=== PATIENT | male | born 1965 | race Caucasian/White ===

== ENCOUNTER 2017-03-22 06:08 | Inpatient (IN) | payer MEDICARE, OTHER ==
[~2017-03-22] VITALS: Ht 175.3 cm; Wt 102.1 kg
[2017-03-22] MEDS ORDERED: ALBU8.5H2 IH (06:34)
[2017-03-22] MEDS ORDERED: VANCOMYCIN IV 1,000 MG in IV DEXTROSE 5% 250 ML IV ONE (07:00)
[2017-03-22] MEDS ORDERED: PIPERACILLIN SODIUM/TAZOBACTAM 3.375 G in IV DEXTROSE 5% 50 ML IV ONE (07:00)
[2017-03-22] MEDS ORDERED: PIPERACILLIN/TAZOBACTAM/D5W 50 ML IV ONE (07:09)
[2017-03-22 07:18] LABS: BASOPHILS % (AUTO) 0.1 % (0.0-2.0); EOSINOPHILS # (AUTO) 0.2 K/uL (0.0-0.7); EOSINOPHILS % (AUTO) 1.6 % (0.0-7.0); HEMATOCRIT 27.6 % (40-50); HEMOGLOBIN 9.5 G/DL (14.0-18.0); LYMPHOCYTES # (AUTO) 0.9 K/UL (0.8-4.8); LYMPHOCYTES % (AUTO) 6.7 % (20.5-51.5); MEAN CORPUSCULAR HEMOGLOBIN 24.5 UUG (27.0-31.0); MEAN CORPUSCULAR HGB CONC 34 g/dL (32.0-37.0); MEAN CORPUSCULAR VOLUME 71.4 FL (82.0-92.0); MONOCYTES # (AUTO) 0.6 K/UL (0.1-1.30); MONOCYTES % (AUTO) 4.1 % (0.0-11.0); NEUTROPHILS # (AUTO) 12.4 K/UL (1.8-8.9); NEUTROPHILS % (AUTO) 87.5 % (38.5-71.5); PLATELET COUNT (AUTO) 399 K/UL (150-450); RED BLOOD CELL COUNT(AUTO) 3.87 MIL/UL (4.7-6.1); RED CELL DISTRIBUTION WIDTH 15.6 % (11.5-14.5); WHITE BLOOD COUNT (AUTO) 14.1 K/UL (4.0-11.2)
[2017-03-22 07:21] LABS: CALCIUM 8.8 mg/dL (8.5-10.1); CREATININE 0.8 mg/dL (0.6-1.3); POTASSIUM 3.6 mmol/L (3.5-5.1)
[2017-03-22 07:27] LABS: ALBUMIN 2.7 g/dL (3.4-5.0); BILIRUBIN,DIRECT 0.1 mg/dL (0.0-0.2); BILIRUBIN,TOTAL 0.2 mg/dL (0.2-1.0); TOTAL PROTEIN, SERUM 7.7 g/dL (6.4-8.2)
[2017-03-22 07:29] LABS: TROPONIN I < 0.017 ng/mL (0.00-0.056)
[2017-03-22] MEDS ORDERED: IV NORMAL SALINE 250 ML IV ONE (07:30)
[2017-03-22] MEDS ORDERED: IOHEXOL 300MG/ML 100 ML INFUS..BTL ONE (07:30)
[2017-03-22] MEDS ORDERED: VANCOMYCIN IV 200 ML ONE (07:32)
[2017-03-22 07:47] LABS: LACTIC ACID 1.2 mmol/L (0.4-2.0)
[2017-03-22] MEDS ORDERED: POLYMYXIN B SULFATE 500,000 UNITS, BACITRACIN 50,000 UNITS, NORMAL SALINE 20 ML MC ONE ×3 (08:45)
--- NOTE | 2017-03-22 08:46 | NUR ---
Pt to surg via osmani, hands off report given to Liss KAMINSKI.
[2017-03-22] MEDS ORDERED: BUPIVACAINE/EPI PF 0.25% 30 ML VIAL ONE (09:19)
[2017-03-22] MEDS ORDERED: LIDOCAINE 1%-EPI 1:100,000 20 ML VIAL ONE (09:19)
[2017-03-22] MEDS ORDERED: MORPHINE SULFATE 4 MG/1 ML DISP.SYRIN ONE ×2 (09:19→09:43)
[2017-03-22] MEDS ORDERED: ONDANSETRON 4 MG/2 ML VIAL IV PRN (10:00)
[2017-03-22] MEDS ORDERED: ACETAMINOPHEN 325 MG TABLET PO PRN (10:00)
[2017-03-22] MEDS ORDERED: MORPHINE SULFATE 2 MG/1 ML DISP.SYRIN IV PRN ×2 (10:00→10:30)
[2017-03-22] MEDS ORDERED: ALBUTEROL SULFATE 2.5 MG/3 ML NEBU NEB PRN (10:15)
[2017-03-22] MEDS ORDERED: POTASSIUM CHLORIDE 20 MEQ in IV D5 1/2 NS 1000 ML 1,000 ML IV PRN (10:30)
[2017-03-22] MEDS ORDERED: MORPHINE SULFATE 4 MG/1 ML DISP.SYRIN IV PRN (10:30)
[2017-03-22] MEDS ORDERED: MISCELLANEOUS MED PO PRN (10:30)
[2017-03-22] MEDS ORDERED: PIPERACILLIN/TAZOBACTAM/D5W 50 ML IV SCH (10:45)
[2017-03-22 11:15] VITALS: BP 113/66
[2017-03-22] MEDS ORDERED: MAGNESIUM HYDROXIDE 30 ML LIQUID UDC PO ONE (11:15)
[2017-03-22] MEDS ORDERED: MAGNESIUM HYDROXIDE 30 ML LIQUID UDC PO PRN (11:15)
--- NOTE | 2017-03-22 11:15 | NUR ---
Received from Recovery by bed S/P I&D abscess right and left thigh. Awake, alert, oriented x 4. IVF Infusing. Dr. Rosa and Amanda William OIL DISPATCHER at bedside, seen and examined patient. Routine admission care rendered. Lab confirmed by Dayana, received 2 specimen for right and left thigh wound CS GS.
--- NOTE | 2017-03-22 11:53 | NUR ---
Clinical Pharmacy Note: Vancomycin Dosing per Pharmacy Subjective: Vancomycin IV to start on this 51 yo male patient for cellulitis. Patient received vancomycin 1000mg IVPB x1 today at 0730 Objective: BUN 6/Scr 0.8 WBC 14.1 Temperature 100.9 wt 209 lb ht 5' 9'' Assessment/Plan: Will start vancomycin 1500mg IVPB q10h for predicted vancomycin trough level of 16 at steady state. First dose is due today at 1600. Plan to draw vancomycin trough level before 4th dose (not yet ordered). Will monitor renal function & adjust the dose if needed. Will follow daily.
[2017-03-22] MEDS: DOCUSATE SODIUM 100 MG CAPSULE PO SCH (12:04)
[2017-03-22] MEDS: IV NS 1000 ML 1,000 ML IV PRN (12:05)
[2017-03-22] MEDS: HYDROMORPHONE 1 MG/1 ML DISP.SYRIN IV PRN ×3 (12:06→21:33)
--- NOTE | 2017-03-22 13:51 | NUR ---
WOUND CARE CONSULT: PT SLEEPING SOUNDLY AT THIS TIME HE JUST RETURNED FROM SURGERY. PT HAS PACKING IN PLACE TO BOTH LEGS PER RN REPORT. WILL SEE PT PT CONDITION PERMITS.
[2017-03-22] MEDS ORDERED: PIPERACILLIN/TAZOBACTAM/D5W 3.375 G in PREMIXED 1 EACH IV SCH (14:00)
[2017-03-22] MEDS: PIPERACILLIN/TAZOBACTAM/D5W 50 ML IV SCH ×2 (14:17→18:46)
[2017-03-22 15:30] VITALS: BP 93/56
[2017-03-22] MEDS: VANCOMYCIN IV 1,500 MG in IV DEXTROSE 5% 500 ML IV SCH (16:30)
[2017-03-22] MEDS ORDERED: VANCOMYCIN IV 1,500 MG in IV DEXTROSE 5% 500 ML IV SCH (17:00)
--- NOTE | 2017-03-22 18:39 | NUR ---
Resting. Warm moist compress to both thighs. IVF infusing. Due antibiotics given
[2017-03-22 20:00] VITALS: BP 119/63
[2017-03-22] MEDS: LORAZEPAM 2 MG/1 ML VIAL IV PRN (23:26)
[2017-03-23] MEDS: PIPERACILLIN/TAZOBACTAM/D5W 50 ML IV SCH ×4 (00:05→20:26)
[2017-03-23] MEDS: VANCOMYCIN IV 1,500 MG in IV DEXTROSE 5% 500 ML IV SCH ×3 (01:21→21:44)
[2017-03-23] MEDS: HYDROMORPHONE 1 MG/1 ML DISP.SYRIN IV PRN ×2 (01:39→06:10)
[2017-03-23 04:00] VITALS: BP 127/71
--- NOTE | 2017-03-23 06:00 | NUR ---
Patient slept intermittently, c/o of pain medication not effective, notified MD, charge nurse notified, waiting for new orders. Kept clean, dry, reinforced dressings on bilateral thigh. Antibiotic IV administered, no s/s of adverse reaction noted. Call light within reach, will continue to monitor. Will endorse to the AM shift RN.
[2017-03-23] MEDS: PANTOPRAZOLE SODIUM 40 MG TABLET.DR PO SCH (06:09)
[2017-03-23] MEDS: IV NS 1000 ML 1,000 ML IV PRN (06:15)
[2017-03-23] MEDS: LORAZEPAM 2 MG/1 ML VIAL IV PRN ×3 (06:45→21:44)
--- NOTE | 2017-03-23 07:20 | NUR ---
RECEIVED PATIENT FROM E MERCHANT, SAFETY CHECK PERFORMED, BED IN LOW POSITION, SIDE RAILS UP X2
--- NOTE | 2017-03-23 07:44 | NUR ---
TRIPLE ATB GIVEN DURING I&D IN OR.
[2017-03-23] MEDS: DOCUSATE SODIUM 100 MG CAPSULE PO SCH (08:28)
[2017-03-23] MEDS: ENOXAPARIN SODIUM 40 MG/0.4 ML DISP.SYRIN SQ SCH (08:28)
[2017-03-23] MEDS ORDERED: DOCUSATE SODIUM 250 MG CAPSULE PO SCH (09:00)
--- NOTE | 2017-03-23 10:39 | NUR ---
Clinical Pharmacy Note: Vancomycin Dosing per Pharmacy Subjective: Vancomycin IV to continue on this 51 yo male patient for cellulitis. Objective: BUN 6/Scr 0.8 (03/22) WBC 14.1 (03/22) Temperature 98 wt 209 lb ht 5' 9'' Assessment/Plan: Will continue same dose of vancomycin 1500mg IVPB q10h for predicted vancomycin trough level of 16 mcg/ml at steady state. Third dose is due today at 1200. Plan to draw vancomycin trough level before 4th dose (ordered for 03/23 at 2130). pharmacy shall review the level in am & adjust the dose if needed. Will monitor renal function & adjust the dose if needed. Will follow daily.
[2017-03-23] MEDS: HYDROMORPHONE 2 MG/1 ML DISP.SYRIN IV PRN ×5 (10:58→23:12)
[2017-03-23 11:05] VITALS: BP 100/48
--- NOTE | 2017-03-23 11:46 | NUR ---
SPOKE WITH DR SILVEIRA AND NOTIFIED HIM OF WOUND mrsa ON LEFT THIGH AND PLACED PATIENT ON CONTACT PRECAUTIONS
[2017-03-23 14:44] LABS: BASOPHILS % (AUTO) 0.2 % (0.0-2.0); EOSINOPHILS # (AUTO) 0.5 K/uL (0.0-0.7); EOSINOPHILS % (AUTO) 4.4 % (0.0-7.0); LYMPHOCYTES # (AUTO) 0.8 K/UL (0.8-4.8); MEAN CORPUSCULAR HEMOGLOBIN 23.4 UUG (27.0-31.0); MEAN CORPUSCULAR HGB CONC 32 g/dL (32.0-37.0); MEAN CORPUSCULAR VOLUME 72.6 FL (82.0-92.0); MONOCYTES # (AUTO) 0.5 K/UL (0.1-1.30); MONOCYTES % (AUTO) 4.3 % (0.0-11.0); NEUTROPHILS # (AUTO) 9.1 K/UL (1.8-8.9); NEUTROPHILS % (AUTO) 84.1 % (38.5-71.5); PLATELET COUNT (AUTO) 405 K/UL (150-450); RED BLOOD CELL COUNT(AUTO) 3.85 MIL/UL (4.7-6.1); RED CELL DISTRIBUTION WIDTH 15.9 % (11.5-14.5); WHITE BLOOD COUNT (AUTO) 10.9 K/UL (4.0-11.2)
--- NOTE | 2017-03-23 15:15 | NUR ---
PATIENT COMPLAINING THAT PAIN CONTROL IS NOT ACHIEVED, NOTIFIED MD, ORDERS CHANGED TO 2MG Q3HR. PERFORMED WOUND CARE ON BOTH UPPER THIGHS.
[2017-03-23 15:18] LABS: ALBUMIN 2.3 g/dL (3.4-5.0); BILIRUBIN,TOTAL 0.2 mg/dL (0.2-1.0); CALCIUM 8.7 mg/dL (8.5-10.1); CREATININE 0.8 mg/dL (0.6-1.3); MAGNESIUM 2.4 mg/dL (1.8-2.4); PHOSPHOROUS 3.4 mg/dL (2.5-4.9); POTASSIUM 4.3 mmol/L (3.5-5.1); TOTAL PROTEIN, SERUM 7.1 g/dL (6.4-8.2)
[2017-03-23 15:20] VITALS: BP 102/54
[2017-03-23 15:27] LABS: THYROID STIMULATING HORMONE 2.826 mIU/mL (0.358-3.740)
--- NOTE | 2017-03-23 16:23 | NUR ---
CONTINUE WITH PAIN MANAGEMENT AND WOUND CARE
[2017-03-23 18:01] LABS: ANISOCYTOSIS 1+; BAND % (MANUAL) 4 % (0-10); EOSINOPHILS % (MANUAL) 5 % (0-8); HYPOCHROMASIA 1+; LYMPHOCYTES % (MANUAL) 7 % (20-40); MONOCYTES % (MANUAL) 5 % (2-10); NEUTROPHILS % (MANUAL) 79 % (42-75); PLATELET ESTIMATE ADEQUATE
--- NOTE | 2017-03-23 18:54 | NUR ---
GAVE REPORT TO CORPORATE CONTROLLER, SAFETY CHECK, BED IN LOW POSITION, WHEELS LOCKED, SIDE RAILS UP X2
[2017-03-23 19:00] VITALS: BP 124/73
--- NOTE | 2017-03-23 19:20 | NUR ---
ALERT ORIENTED, RESTING IN BED NO DISTRESS. CALL LIGHT WITHIN REACH.
--- NOTE | 2017-03-23 23:55 | NUR ---
PATIENT ALERT ORIENTED, ABLE TO MAKE NEEDS KNOWN, REMAIN ON CONTACT ISOLATION OF MRSA OF THIGH WOUNDS, CONT ON PAIN MANAGEMENT, CONT ON ABX FOR WOUNDS NO S/S OF DISTRESS.
[2017-03-24] MEDS: PIPERACILLIN/TAZOBACTAM/D5W 50 ML IV SCH ×4 (02:01→19:43)
[2017-03-24] MEDS: HYDROMORPHONE 2 MG/1 ML DISP.SYRIN IV PRN ×7 (02:15→21:56)
[2017-03-24] MEDS: LORAZEPAM 2 MG/1 ML VIAL IV PRN ×4 (04:01→23:41)
[2017-03-24 05:00] VITALS: BP 132/76
[2017-03-24] MEDS: IV NS 1000 ML 1,000 ML IV PRN (05:06)
--- NOTE | 2017-03-24 05:25 | NUR ---
PATIENT REFUSED LAB WORKS, YELLS AND SCREAMS AT THE STAFF, ASKED FOR DILAUDID DESPITE PATIENT HAD PAIN MEDS 1 1/2 HOUR ONLY, PATIENT CURSES AND MADE THREATENING REMARK THAT HE PULLED OUT IV, AND LEAVE THE HOSPITAL, PATIENT DOESN'T WANT TO BE WAKE UP WITH MEDICATIONS AND LABS WORKS. EXPLAINED THE IMPORTANCE OF COOPERATING WITH THE CARE BUT STILL RESIST. WILL CONTINUE TO OFFER MEDICATIONS AND LAB WORKS DRAW.
[2017-03-24] MEDS: PANTOPRAZOLE SODIUM 40 MG TABLET.DR PO SCH (06:01)
[2017-03-24] MEDS: ENOXAPARIN SODIUM 40 MG/0.4 ML DISP.SYRIN SQ SCH (08:29)
[2017-03-24] MEDS: DOCUSATE SODIUM 100 MG CAPSULE PO SCH (08:30)
[2017-03-24] MEDS: VANCOMYCIN IV 1,500 MG in IV DEXTROSE 5% 500 ML IV SCH ×2 (08:30→16:56)
[2017-03-24 11:44] VITALS: BP 138/62
[2017-03-24 15:00] LABS: BASOPHILS % (AUTO) 0.3 % (0.0-2.0); EOSINOPHILS # (AUTO) 0.5 K/uL (0.0-0.7); EOSINOPHILS % (AUTO) 6.1 % (0.0-7.0); HEMATOCRIT 29.7 % (40-50); HEMOGLOBIN 9.7 G/DL (14.0-18.0); LYMPHOCYTES # (AUTO) 0.8 K/UL (0.8-4.8); LYMPHOCYTES % (AUTO) 9.6 % (20.5-51.5); MEAN CORPUSCULAR HEMOGLOBIN 23.3 UUG (27.0-31.0); MEAN CORPUSCULAR HGB CONC 33 g/dL (32.0-37.0); MEAN CORPUSCULAR VOLUME 71.6 FL (82.0-92.0); MONOCYTES # (AUTO) 0.4 K/UL (0.1-1.30); MONOCYTES % (AUTO) 4.5 % (0.0-11.0); NEUTROPHILS # (AUTO) 6.6 K/UL (1.8-8.9); NEUTROPHILS % (AUTO) 79.5 % (38.5-71.5); PLATELET COUNT (AUTO) 479 K/UL (150-450); RED BLOOD CELL COUNT(AUTO) 4.14 MIL/UL (4.7-6.1); WHITE BLOOD COUNT (AUTO) 8.3 K/UL (4.0-11.2)
[2017-03-24 15:05] LABS: CALCIUM 9.2 mg/dL (8.5-10.1); CREATININE 0.7 mg/dL (0.6-1.3); MAGNESIUM 2.4 mg/dL (1.8-2.4); PHOSPHOROUS 4.8 mg/dL (2.5-4.9)
--- NOTE | 2017-03-24 15:26 | NUR ---
Clinical Pharmacy Note: Vancomycin Dosing per Pharmacy Subjective: Vancomycin IV to continue on this 51 yo male patient for cellulitis. Objective: BUN 6/Scr 0.8 (03/23) WBC 10.9 (03/23) Temperature 98 wt 209 lb ht 5' 9'' Trough: 14.3 (03/23 @2130) Assessment/Plan: Based on trough last night, rescheduled regimen to 1500mg q9hr for expected new trough of 16.3. Plan to draw vancomycin trough level before 4th dose (ordered for tomorrow 03/25 @1030). pharmacy shall review the level in am & adjust the dose if needed. Will monitor renal function & adjust the dose if needed. Will follow daily.
[2017-03-24 15:35] LABS: ANISOCYTOSIS 1+; HYPOCHROMASIA 1+
[2017-03-24 15:44] VITALS: BP 127/87
--- NOTE | 2017-03-24 19:15 | NUR ---
WOUND CARE IS DONE. NO S/S OF RESPIRATORY DISTRESS NOTED. NO PAIN REPORTED. IV INTACT/PATENT. ALL SAFETY NEEDS ARE MET.
--- NOTE | 2017-03-24 19:55 | NUR ---
PT IN BED RESTING, AWAKENS EASILY TO NAME. PT A/OX4, NO ACUTE DISTRESS NOTED. PT APPEARS CALM AND DOZING OFF, C/O SEVERE PAIN, PRN DILAUDID WAS RECENTLY GIVEN 1.5HR AGO, OFFERED TYLENOL, PRN TYLENOL GIVEN AT THIS TIME ORDERED. PT CALM AND COOPERATIVE AT THIS TIME. IV INTACT AND PATENT, ZOZYN STARTED ORDERED, WITH NO REACTIONS NOTED. CONTACT ISOLATION OBSERVED AND MAINTAINED. ALL NEEDS ATTENDED AT THIS TIME. WILL CONTINUE TO MONITOR.
[2017-03-24 20:00] VITALS: BP 117/63
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
[2017-03-24] MEDS ORDERED: LEVOFLOXACIN 750 MG TABLET PO SCH (20:45)
[2017-03-24] MEDS: LACTOBACILLUS RHAMNOSUS GG 1 EACH CAPSULE PO SCH (21:10)
--- NOTE | 2017-03-24 23:46 | NUR ---
PT C/O ANXIETY, REQUESTING MED. PRN ATIVAN 1MG GIVEN ORDERED, WILL CONTINUE TO MONITOR
[2017-03-25] MEDS: HYDROMORPHONE 2 MG/1 ML DISP.SYRIN IV PRN ×5 (01:08→12:53)
[2017-03-25] MEDS: VANCOMYCIN IV 1,500 MG in IV DEXTROSE 5% 500 ML IV SCH (01:09)
[2017-03-25 05:50] VITALS: BP 120/66
[2017-03-25] MEDS: PANTOPRAZOLE SODIUM 40 MG TABLET.DR PO SCH (06:09)
[2017-03-25] MEDS: LORAZEPAM 2 MG/1 ML VIAL IV PRN (06:09)
--- NOTE | 2017-03-25 06:54 | NUR ---
END OF SHIFT NOTE: PT IN BED RESTING, EASILY AWAKENS TO NAME. NO ACUTE DISTRESS NOTED PER SHIFT. VS STABLE. PAIN MANAGED WITH PRN DILAUDID REQUESTED BY PT Q3HR, GIVEN ORDERED WITH GOOD RELIEF. C/O ANXIETY MANAGED WITH PRN MED PRESCRIBED. REFUSED DRESSING CHANGE THIS AM. ALL NEEDS ATTENDED AND MET. CONTINUE CARE PLANNED.
[2017-03-25] MEDS: LACTOBACILLUS RHAMNOSUS GG 1 EACH CAPSULE PO SCH (08:03)
[2017-03-25] MEDS: DOCUSATE SODIUM 100 MG CAPSULE PO SCH (08:03)
[2017-03-25] MEDS: ENOXAPARIN SODIUM 40 MG/0.4 ML DISP.SYRIN SQ SCH (08:09)
[2017-03-25] MEDS: IV NS 1000 ML 1,000 ML IV PRN (08:10)
--- NOTE | 2017-03-25 08:30 | NUR ---
AWAKE ALERT COOPERATE WELL STATE PAIN MED HELP TO RELIEF PAIN EAT BREAKFAST WITH GOOD APPETITE ON FALL PRECAUTION CALL FONG IN REACH BROWN THIGH DSG D/I
[2017-03-25 11:10] VITALS: BP 125/85
--- NOTE | 2017-03-25 11:20 | NUR ---
Clinical Pharmacy Note: Vancomycin Dosing per Pharmacy Subjective: Vancomycin IV to continue on this 51 yo male patient for cellulitis. Objective: BUN 5/Scr 0.1 (03/24) WBC 8.3 (03/24) Temperature 97.8 wt 209 lb ht 5' 9'' Trough: 19.2 (today @1010) Assessment/Plan: Since vanco likely had not reached steady state by original first subtherapeutic trough taken on 03/23, based on today's trough, will reschedule regimen back to 1500mg q10hr, with new expected trough of 15.8. Plan to draw vancomycin trough level before 4th dose (ordered for tomorrow 03/26 @1730). pharmacy shall review the level & adjust the dose if needed. Will monitor renal function & adjust the dose if needed. Will follow daily.
[2017-03-25] MEDS ORDERED: VANCOMYCIN IV 1,500 MG in IV DEXTROSE 5% 500 ML IV SCH (12:00)
[2017-03-25 15:26] VITALS: BP 105/61
[2017-03-25] MEDS ORDERED: MULT-1045 PO (16:10)
[2017-03-25] MEDS ORDERED: Acetaminophen PO (16:10)
[2017-03-25] MEDS ORDERED: SULF1TAB48 PO (16:10)
[2017-03-25] MEDS ORDERED: LACT1CAP57 PO (16:10)
[2017-03-25] MEDS ORDERED: Docusate Sodium PO (16:10)
[2017-03-25] MEDS ORDERED: LEVO500T15 PO (16:10)
--- NOTE | 2017-03-25 16:12 | NUR ---
Spoke to the patient about being discharged to [facility] but he refused placement and would like to return back home. He is aware that he needs to follow-up with his PCP and see an ID MD. His RN, Brook, is aware of his discharge plan.
--- NOTE | 2017-03-25 17:41 | NUR ---
DISCHARGING PT TO HOME IN A STABLE CONDITION. V/S WNL. NO S/S OF ACUTE DISTRESS. DISCHARGE INSTRUCTION PROVIDED. WOUND TREATMENT INSTRUCTIONS PROVIDED, PT VOICED UNDERSTANDING OF INSTRUCTIONS. PT REFUSED TO SPEAK TO PHARMACIST ABOUT NEW MEDICATION PRESCRIPTION. IV REMOVED, PRESSURE APPLIED, NO BLEEDING OBSERVED. CLEAN DRESSING APPLIED. PT LEAVING VIA PRIVATE CAR, ACCOMPANIED BY FRIEND.
== END 2017-03-25 17:10 | disposition home or self-care (01) | DRG 872 ==
LOC: ER 06:21 → MED 08:45
PROVIDERS: ADMIT Internal Medicine; ATTEND Internal Medicine
PROC: 0H9HXZZ Drainage of Right Upper Leg Skin, External Approach (ICD-10-PCS; 2017-03-22)
PROC: 0H9JXZZ Drainage of Left Upper Leg Skin, External Approach (ICD-10-PCS; principal; 2017-03-22 09:15)
DX: A41.9 Sepsis, unspecified organism (principal); L02.415 Cutaneous abscess of right lower limb; E44.0 Moderate protein-calorie malnutrition; L02.416 Cutaneous abscess of left lower limb; F41.9 Anxiety disorder, unspecified; G89.29 Other chronic pain; J45.909 Unspecified asthma, uncomplicated; E66.9 Obesity, unspecified; Z68.33 Body mass index [BMI] 33.0-33.9, adult; R59.0 Localized enlarged lymph nodes; R73.9 Hyperglycemia, unspecified; F19.10 Other psychoactive substance abuse, uncomplicated; K59.09 Other constipation; F31.9 Bipolar disorder, unspecified; T40.605A Adverse effect of unspecified narcotics, initial encounter; Y92.009 Unspecified place in unspecified non-institutional (private) residence as the place of occurrence of the external cause; D63.8 Anemia in other chronic diseases classified elsewhere; F11.188 Opioid abuse with other opioid-induced disorder
CPT/HCPCS: 36415; 70030-TC; 71010; 83605; 83735; 84100; 84443; 85025; 85730; 87040; 87070; 87075; 87077; 93005; 97001; A4217; A4649; A4663; J1170; J1650; J2060; J2270; J2543; J3370; J3490; J7030; J7050; J7060; Q9967

== ENCOUNTER 2017-08-25 15:02 | Inpatient (IN) | payer MEDICARE, OTHER ==
[~2017-08-25] VITALS: Ht 175.3 cm; Wt 99.8 kg
[~2017-08-25 15:02] MED LIST: ALBU8.5H8 IH; Acetaminophen PO; Docusate Sodium PO; LACT1CAP57 PO; LEVO500T2 PO; MULT-1045 PO; SULF1TAB48 PO
[2017-08-25] MEDS ORDERED: LIDOCAINE HCL 1% 20 ML VIAL IJ ONE (15:15)
[2017-08-25] MEDS ORDERED: HYDROMORPHONE 1 MG/1 ML DISP.SYRIN IM ONE (15:15)
[2017-08-25] MEDS ORDERED: LIDOCAINE HCL 1% 20 ML VIAL ONE (15:26)
[2017-08-25] MEDS ORDERED: HYDROMORPHONE 2 MG/1 ML DISP.SYRIN ONE ×3 (15:27→22:12)
[2017-08-25 15:28] LABS: BASOPHILS # (AUTO) 0.8 K/uL (0.0-8.0); EOSINOPHILS # (AUTO) 0.5 K/uL (0.0-0.7); EOSINOPHILS % (AUTO) 2.6 % (0.0-7.0); HEMATOCRIT 30.8 % (40-50); HEMOGLOBIN 9.9 G/DL (14.0-18.0); LYMPHOCYTES # (AUTO) 1.1 K/UL (0.8-4.8); LYMPHOCYTES % (AUTO) 5.1 % (20.5-51.5); MEAN CORPUSCULAR HEMOGLOBIN 23.9 UUG (27.0-31.0); MEAN CORPUSCULAR HGB CONC 32 g/dL (32.0-37.0); MEAN CORPUSCULAR VOLUME 74.3 FL (82.0-92.0); MONOCYTES % (AUTO) 4.5 % (0.0-11.0); NEUTROPHILS # (AUTO) 17.7 K/UL (1.8-8.9); NEUTROPHILS % (AUTO) 83.8 % (38.5-71.5); PLATELET COUNT (AUTO) 539 K/UL (150-450); RED BLOOD CELL COUNT(AUTO) 4.15 MIL/UL (4.7-6.1); WHITE BLOOD COUNT (AUTO) 21.1 K/UL (4.0-11.2)
[2017-08-25] MEDS ORDERED: PIPERACILLIN SODIUM/TAZOBACTAM 3.375 G in IV DEXTROSE 5% 50 ML IV ONE (15:45)
[2017-08-25] MEDS ORDERED: VANCOMYCIN IV 200 ML IV ONE (15:45)
[2017-08-25 15:56] LABS: CARBON DIOXIDE 31 mmol/L (21-32); CHLORIDE 99 mmol/L (98-107); GLUCOSE 115 mg/dL (74-106); POTASSIUM 4.7 mmol/L (3.5-5.1); UREA NITROGEN, BLOOD 7 mg/dL (7-18)
[2017-08-25] MEDS ORDERED: HYDROMORPHONE 1 MG/1 ML DISP.SYRIN IV ONE (16:00)
[2017-08-25 16:02] LABS: ALANINE AMINOTRANSFERASE 10 U/L (16-63); ALKALINE PHOSPHATASE 112 U/L (50-136); ASPARTATE AMINOTRANSFERASE 13 U/L (15-37); BILIRUBIN,DIRECT < 0.1 mg/dL (0.0-0.2); BILIRUBIN,TOTAL 0.2 mg/dL (0.2-1.0); TOTAL PROTEIN, SERUM 7.7 g/dL (6.4-8.2)
[2017-08-25] MEDS ORDERED: VANCOMYCIN IV 200 ML ONE (16:11)
[2017-08-25] MEDS ORDERED: PIPERACILLIN/TAZOBACTAM/D5W 50 ML IV ONE (16:11)
--- NOTE | 2017-08-25 16:32 | NUR ---
DR HUTCHINSON I AND Wil'D, RT BUTTOCK ABSCESS AND TO RT FOREARM ABSCESSES. I THEN CLEANED SITES AND PLACED DRESSING. AT THIS TIME ZOSYN ADMINISTERED, VANCFO INFUSING.
[2017-08-25] MEDS ORDERED: NORMAL SALINE FLUSH 10 ML DISP.SYRIN ONE (16:33)
[2017-08-25] MEDS ORDERED: IOHEXOL 300MG/ML 100 ML INFUS..BTL ONE (16:33)
[2017-08-25] MEDS ORDERED: IV NORMAL SALINE 250 ML IV ONE (16:33)
[2017-08-25] MEDS ORDERED: ALPR2TAB2 PO (16:41)
[2017-08-25] MEDS ORDERED: OXYC30TA2 PO (16:41)
[2017-08-25] MEDS ORDERED: IV NORMAL SALINE 1000 ML BAG IV ONE (17:00)
--- NOTE | 2017-08-25 18:30 | NUR ---
ALL MD ORDERS COMPLETED EXCEPT THE 2700ML 0.9NS BOLUS, ENDORSED TO FAN KAMINSKI TO COMPLETE. ADMIT ORDER WRITTEN,BELONGINGS LIST DONE, ADMIT DATA SHEET COMPLETED. [facility]
--- NOTE | 2017-08-25 18:40 | NUR ---
RECEIVED FROM ER AWAKE ALERT AND ORIENTED, VS TAKEN, IVF NS INFUSING AND ENDORSED TO NEXT SHIFT
[2017-08-25 18:46] VITALS: BP 120/62
[2017-08-25 18:47] LABS: EOSINOPHILS % (MANUAL) 3 % (0-8); LYMPHOCYTES % (MANUAL) 7 % (20-40); MONOCYTES % (MANUAL) 3 % (2-10); NEUTROPHILS % (MANUAL) 87 % (42-75)
[2017-08-25 20:00] VITALS: BP 98/51
[2017-08-25] MEDS ORDERED: ACETAMINOPHEN 325 MG TABLET PO PRN (20:30)
[2017-08-25] MEDS ORDERED: ONDANSETRON 4 MG/2 ML VIAL IV PRN (20:30)
[2017-08-25] MEDS ORDERED: HYDROMORPHONE 1 MG/1 ML DISP.SYRIN IV PRN (20:30)
[2017-08-25] MEDS ORDERED: MAGNESIUM HYDROXIDE 30 ML LIQUID UDC PO PRN (20:30)
[2017-08-25] MEDS ORDERED: ALBUTEROL SULFATE 2.5 MG/3 ML NEBU NEB PRN (20:30)
[2017-08-25] MEDS: DOCUSATE SODIUM 100 MG CAPSULE PO SCH (21:01)
[2017-08-25] MEDS: HYDROCODONE/APAP 5-325MG TABLET PO PRN (21:02)
[2017-08-25] MEDS: PIPERACILLIN/TAZOBACTAM/D5W 50 ML IV SCH (21:07)
[2017-08-25] MEDS: IV NS 1000 ML 1,000 ML IV PRN (21:08)
[2017-08-25] MEDS: HYDROMORPHONE 2 MG/1 ML DISP.SYRIN IV PRN (22:55)
--- NOTE | 2017-08-25 23:00 | NUR ---
Admitted this 52 y/o male patient awake alert & oriented, no SOB denies chest pain. Dx.Cellulitis s/p I & D of left arm & right hip. Patient tolerated total IV bolus of 2,700ml NS. Right hip dressing soaking wet w/ serosanguinous drainage, same as his left arm wound dressing. Patient c/o pain on the site 10/10 pain level. Medicated w/ [place] p.o but not effective. Dialudid 1 mg IVP adm., patient verbalized relief post 15 mins. treatment. Wound dressing change initiated, applied gauze & abdominal pads. See wound photos in chart. On regular diet, late dinner meal tray provided. Patient tolerated. IVF NS at 80 ml started as ordered, Zosyn IVPB adm. Will continue to monitor.
--- NOTE | 2017-08-26 01:00 | NUR ---
Kept comfortable, patient urinated a lot via urinal.
[2017-08-26] MEDS: PIPERACILLIN/TAZOBACTAM/D5W 50 ML IV SCH ×4 (02:44→22:31)
[2017-08-26 04:00] VITALS: BP 101/53
[2017-08-26] MEDS: HYDROMORPHONE 2 MG/1 ML DISP.SYRIN IV PRN ×5 (04:43→22:16)
[2017-08-26] MEDS: PANTOPRAZOLE SODIUM 40 MG TABLET.DR PO SCH (05:36)
[2017-08-26] MEDS: HYDROCODONE/APAP 5-325MG TABLET PO PRN ×3 (06:19→11:32)
--- NOTE | 2017-08-26 06:39 | NUR ---
Awake & fairly rested. Medicated for pain PRN. Patient anxious about current condition, verbalizing fear of possibility of withdrawal symptoms, & stated he's "Heroin user". Patient requesting Methadone drugs. Will pass patient's concern to incoming shift. Will continue to monitor. No acute resp. distress. Vital signs WNL.
[2017-08-26 06:56] LABS: BILIRUBIN,TOTAL 0.2 mg/dL (0.2-1.0); CREATININE 0.9 mg/dL (0.6-1.3); MAGNESIUM 2.1 mg/dL (1.8-2.4); PHOSPHOROUS 4.2 mg/dL (2.5-4.9); POTASSIUM 4.4 mmol/L (3.5-5.1); TOTAL PROTEIN, SERUM 6.5 g/dL (6.4-8.2)
[2017-08-26 07:58] LABS: BASOPHILS % (AUTO) 0.1 % (0.0-2.0); EOSINOPHILS # (AUTO) 0.5 K/uL (0.0-0.7); EOSINOPHILS % (AUTO) 3.8 % (0.0-7.0); HEMOGLOBIN 8.6 G/DL (14.0-18.0); LYMPHOCYTES # (AUTO) 0.9 K/UL (0.8-4.8); LYMPHOCYTES % (AUTO) 6.9 % (20.5-51.5); MEAN CORPUSCULAR HEMOGLOBIN 24.8 UUG (27.0-31.0); MEAN CORPUSCULAR HGB CONC 33 g/dL (32.0-37.0); MEAN CORPUSCULAR VOLUME 75.1 FL (82.0-92.0); MONOCYTES # (AUTO) 0.6 K/UL (0.1-1.30); MONOCYTES % (AUTO) 4.7 % (0.0-11.0); NEUTROPHILS # (AUTO) 10.8 K/UL (1.8-8.9); NEUTROPHILS % (AUTO) 84.5 % (38.5-71.5)
[2017-08-26 07:59] LABS: WHITE BLOOD COUNT (AUTO) 12.8 K/UL (4.0-11.2)
[2017-08-26 08:00] LABS: PLATELET COUNT (AUTO) 384 K/UL (150-450); RED BLOOD CELL COUNT(AUTO) 3.46 MIL/UL (4.7-6.1)
[2017-08-26] MEDS: VANCOMYCIN IV 1,500 MG in IV DEXTROSE 5% 500 ML IV SCH ×2 (08:34→20:22)
[2017-08-26] MEDS ORDERED: Medication Not On Formulary EA (Multivitamin (Multi-Vitamin Daily) 1 EACH) PO SCH (09:00)
[2017-08-26] MEDS: MULTIVITAMINS,THERAPEUTIC TABLET PO SCH ×2 (09:00→16:29)
[2017-08-26 10:37] LABS: IRON, SERUM 14 ug/dL (50-175)
[2017-08-26 11:55] VITALS: BP 91/50
[2017-08-26 11:58] LABS: BAND % (MANUAL) 2 % (0-10); EOSINOPHILS % (MANUAL) 1 % (0-8); LYMPHOCYTES % (MANUAL) 7 % (20-40); MONOCYTES % (MANUAL) 3 % (2-10); MYELOCYTES % 1 % (0-0); NEUTROPHILS % (MANUAL) 86 % (42-75)
--- NOTE | 2017-08-26 12:14 | NUR ---
Clinical Pharmacy Note: Vancomycin Pharmacy to Dose Subjective: To start vancomycin in this 52 yo male for indication on cellulitis. Patient received vanco 1gm IVPB x1 in Ed on 08/25 at 1635. Objective: height : 69 '' weight: 220 lb BUN 5 Scr 0.9 Wbc 12.8 temp 98.6 Assessment/Plan Will start vancomycin 1500mg IVPB Q11hrs for expected trough of 15.9 at steady state. 1st dose was due today at 0800. Will check trough before 4th scheduled dose (not yet ordered). Will monitor renal function and adjust the dose if needed. Will continue to follow
--- NOTE | 2017-08-26 12:36 | NUR ---
WOUND CARE CONSULT: PT REFUSED SKIN ASSESSMENT. RECOMMEND SURGICAL CONSULT. DISCUSSED WITH NURSING STAFF. WILL SEE PT PT CONDITION PERMITS.
[2017-08-26] MEDS ORDERED: MAGNESIUM HYDROXIDE 30 ML LIQUID UDC PO ONE (13:30)
[2017-08-26] MEDS: LORAZEPAM 1 MG TABLET PO PRN (13:55)
[2017-08-26 15:30] VITALS: BP 112/65
[2017-08-26] MEDS: IV NS 1000 ML 1,000 ML IV PRN (16:28)
[2017-08-26 18:43] VITALS: BP 99/57
--- NOTE | 2017-08-26 19:45 | NUR ---
PATIENT ALERT ORIENTED, NO SOB NO CHEST PAIN NOTED, CONT ON PAIN MANAGEMENT OF CELLULITIS OF LEFT ARM/ELBOW, PATIENT HAS EPISODES OF YELLING AND SCREAMING AT STAFF, KEPT CLEAN AND COMFORTABLE. NO DISTRESS. DRESSING ON CELLULITIS INTACT, CONT TO MONITOR.
[2017-08-26 20:00] VITALS: BP 100/56
[2017-08-26] MEDS: DOCUSATE SODIUM 100 MG CAPSULE PO SCH (20:22)
[2017-08-26] MEDS: LACTOBACILLUS RHAMNOSUS GG 1 EACH CAPSULE PO SCH (20:22)
[2017-08-27] MEDS: LORAZEPAM 1 MG TABLET PO PRN (00:20)
[2017-08-27] MEDS: PIPERACILLIN/TAZOBACTAM/D5W 50 ML IV SCH ×4 (02:36→20:04)
[2017-08-27 04:00] VITALS: BP 104/55
[2017-08-27] MEDS: HYDROMORPHONE 2 MG/1 ML DISP.SYRIN IV PRN ×4 (04:09→21:44)
--- NOTE | 2017-08-27 05:42 | NUR ---
PATIENT IN BED ALERT ORIENTED, NO SOB NO CHEST PAIN NOTED, CONT ON PAIN MANAGEMENT, PATIENT REFUSED LAB DRAW, OFFERED TWICE BUT REFUSED, WILL TO OFFER AGAIN LATER. PATIENT SLEPT MOST OF THE NIGHT, CALL LIGHT WITHIN REACH.
[2017-08-27] MEDS: PANTOPRAZOLE SODIUM 40 MG TABLET.DR PO SCH (06:04)
[2017-08-27] MEDS: VANCOMYCIN IV 1,500 MG in IV DEXTROSE 5% 500 ML IV SCH ×2 (06:04→17:21)
[2017-08-27 09:01] LABS: BASOPHILS % (AUTO) 0.2 % (0.0-2.0); EOSINOPHILS # (AUTO) 0.6 K/uL (0.0-0.7); EOSINOPHILS % (AUTO) 5.9 % (0.0-7.0); HEMOGLOBIN 9.5 G/DL (14.0-18.0); LYMPHOCYTES # (AUTO) 0.9 K/UL (0.8-4.8); LYMPHOCYTES % (AUTO) 8.1 % (20.5-51.5); MEAN CORPUSCULAR HGB CONC 32 g/dL (32.0-37.0); MEAN CORPUSCULAR VOLUME 74.6 FL (82.0-92.0); MONOCYTES # (AUTO) 0.2 K/UL (0.1-1.30); MONOCYTES % (AUTO) 1.9 % (0.0-11.0); NEUTROPHILS % (AUTO) 83.9 % (38.5-71.5); PLATELET COUNT (AUTO) 457 K/UL (150-450); WHITE BLOOD COUNT (AUTO) 10.7 K/UL (4.0-11.2)
[2017-08-27 09:12] LABS: RED BLOOD CELL COUNT(AUTO) 3.97 MIL/UL (4.7-6.1)
[2017-08-27 09:13] LABS: HEMATOCRIT 29.6 % (40-50)
[2017-08-27] MEDS: LACTOBACILLUS RHAMNOSUS GG 1 EACH CAPSULE PO SCH ×2 (09:34→20:04)
[2017-08-27] MEDS: MULTIVITAMINS,THERAPEUTIC TABLET PO SCH (09:34)
[2017-08-27] MEDS: FERROUS SULFATE 325 MG TABEC PO SCH (09:34)
[2017-08-27 09:41] LABS: BILIRUBIN,TOTAL 0.2 mg/dL (0.2-1.0); MAGNESIUM 2.6 mg/dL (1.8-2.4); PHOSPHOROUS 4.4 mg/dL (2.5-4.9); POTASSIUM 4.5 mmol/L (3.5-5.1); TOTAL PROTEIN, SERUM 7.3 g/dL (6.4-8.2)
[2017-08-27 09:47] LABS: THYROID STIMULATING HORMONE 4.386 mIU/mL (0.358-3.740)
[2017-08-27 10:32] LABS: BAND % (MANUAL) 3 % (0-10); EOSINOPHILS % (MANUAL) 6 % (0-8); LYMPHOCYTES % (MANUAL) 9 % (20-40); METAMYELOCYTES % 1 % (0-1); MONOCYTES % (MANUAL) 3 % (2-10); NEUTROPHILS % (MANUAL) 78 % (42-75)
--- NOTE | 2017-08-27 10:32 | NUR ---
Patient refused chest x-ray at this time.
[2017-08-27] MEDS: IV NS 1000 ML 1,000 ML IV PRN (11:01)
[2017-08-27 11:32] VITALS: BP 111/57
--- NOTE | 2017-08-27 13:42 | NUR ---
Patient agrees to chest x-ray at this time.
[2017-08-27] MEDS: HYDROCODONE/APAP 5-325MG TABLET PO PRN (13:58)
--- NOTE | 2017-08-27 13:58 | NUR ---
Patient resistant to discharge plan at this time. Says only dilauded works for his back pain. Agreement to take norco at this time. Patient says he is to leave on Tuesday for Rehab. If he gets an order sooner he says he is going to go against medical advice and leave.
--- NOTE | 2017-08-27 14:30 | NUR ---
Dietitian recommendation for wound healing is add supplement vitamin C.
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
--- NOTE | 2017-08-27 14:49 | NUR ---
Clinical Pharmacy Note: Vancomycin Pharmacy to Dose Subjective: To continue vancomycin in this 52 yo male for indication on cellulitis. Patient received vanco 1gm IVPB x1 in Ed on 08/25 at 1635. Objective: height : 69 '' weight: 220 lb BUN 5 (08/26) Scr 0.9 (08/26) Wbc 12.8 (08/26) temp 98.6 trough: pending (today at 1630) Assessment/Plan Will continue vancomycin 1500mg IVPB Q11hrs for expected trough of 15.9 at steady state. Will check trough before 4th scheduled dose (due today at 1630). Will check level later today and adjust as needed. Will continue to follow Addendum: 08/27/17 at 1915 by ANDRIA POZO VANCOMYCIN LEVEL 16.8 CONTINUE SAME DOSE OF VANCOMYCIN
--- NOTE | 2017-08-27 15:30 | NUR ---
Patient arm dressing loose at this time. Refuses treatment of wounds.
[2017-08-27 15:59] VITALS: BP 135/67
--- NOTE | 2017-08-27 18:10 | NUR ---
Patient allowed proposal lead writer to change dressing at this time.
--- NOTE | 2017-08-27 19:15 | NUR ---
Handoff report to night nurse at this time.
--- NOTE | 2017-08-27 19:45 | NUR ---
PATIENT IN BED, AWAKE, NO SOB NO CHEST PAIN, RHYTHM SINUS RHYTHM, HOB ELEVATED, OXYGEN SAT WNL, 2LITER NC, GTF TOLERATE WELL NO N/V NOTED, NO DIARRHEA, NO RESIDUAL NOTED.GT HAS MINIMAL DRAINAGE NOTED, KEPT CLEAN AND DRY, TURN AND REPOSITION, PATIÑO CATH PATENT WITH YELLOW COLOR URINE IN MODERATE AMOUNT, KEPT COMFORTABLE.
[2017-08-27 20:00] VITALS: BP 141/76
[2017-08-27] MEDS: DOCUSATE SODIUM 100 MG CAPSULE PO SCH (20:05)
[2017-08-28] MEDS: IV NS 1000 ML 1,000 ML IV PRN (00:41)
[2017-08-28] MEDS: HYDROMORPHONE 2 MG/1 ML DISP.SYRIN IV PRN ×7 (01:14→23:07)
--- NOTE | 2017-08-28 01:15 | NUR ---
SEEN BY DR. ALMA KELLY, LOOK AT THE GT SITE, AND WOUND SITE, WITH NO NEW ORDER AT THIS TIME.
[2017-08-28] MEDS: PIPERACILLIN/TAZOBACTAM/D5W 50 ML IV SCH ×4 (01:53→20:41)
[2017-08-28] MEDS: VANCOMYCIN IV 1,500 MG in IV DEXTROSE 5% 500 ML IV SCH ×2 (04:04→14:52)
[2017-08-28 04:21] VITALS: BP 129/66
--- NOTE | 2017-08-28 04:49 | NUR ---
PATIENT SLEPT MOST OF THE NIGHT, HOB ELEVATED, NO SOB NO CHEST PAIN NOTED, OXYGEN SAT WNL, TURN AND REPOSITION EVERY TWO HOURS, PATIÑO CATH PATENT, TX CONT ON WOUND, GT WITH SMALL AMOUNT DRAINAGE NOTED, NO ODOR, NO EXUDATE NOTED, KEPT SITE CLEAN AND DRY, PICC LINE PATENT, KEPT CLEAN AND DRY, WHEN ASK IF SHE HAS PAIN PATIENT DENIES PAIN AT THIS TIME, CALL LIGHT WITHIN REACH
[2017-08-28] MEDS: PANTOPRAZOLE SODIUM 40 MG TABLET.DR PO SCH (06:08)
[2017-08-28] MEDS: LACTOBACILLUS RHAMNOSUS GG 1 EACH CAPSULE PO SCH ×2 (08:17→20:41)
[2017-08-28] MEDS: FERROUS SULFATE 325 MG TABEC PO SCH (08:17)
[2017-08-28] MEDS: MULTIVITAMINS,THERAPEUTIC TABLET PO SCH (08:17)
[2017-08-28 09:15] LABS: BASOPHILS # (AUTO) 0.1 K/uL (0.0-8.0); BASOPHILS % (AUTO) 0.8 % (0.0-2.0); EOSINOPHILS # (AUTO) 0.5 K/uL (0.0-0.7); HEMATOCRIT 32.2 % (40-50); LYMPHOCYTES # (AUTO) 1.1 K/UL (0.8-4.8); LYMPHOCYTES % (AUTO) 10.9 % (20.5-51.5); MEAN CORPUSCULAR HEMOGLOBIN 23.2 UUG (27.0-31.0); MEAN CORPUSCULAR HGB CONC 31 g/dL (32.0-37.0); MEAN CORPUSCULAR VOLUME 74.9 FL (82.0-92.0); MONOCYTES # (AUTO) 0.4 K/UL (0.1-1.30); MONOCYTES % (AUTO) 4.1 % (0.0-11.0); NEUTROPHILS # (AUTO) 8.2 K/UL (1.8-8.9); NEUTROPHILS % (AUTO) 79.2 % (38.5-71.5); PLATELET COUNT (AUTO) 518 K/UL (150-450); WHITE BLOOD COUNT (AUTO) 10.3 K/UL (4.0-11.2)
[2017-08-28 09:29] LABS: BILIRUBIN,TOTAL 0.1 mg/dL (0.2-1.0); CREATININE 0.9 mg/dL (0.6-1.3); MAGNESIUM 2.4 mg/dL (1.8-2.4); PHOSPHOROUS 4.5 mg/dL (2.5-4.9); POTASSIUM 4.3 mmol/L (3.5-5.1); TOTAL PROTEIN, SERUM 7.8 g/dL (6.4-8.2)
[2017-08-28 11:39] LABS: BAND % (MANUAL) 5 % (0-10); EOSINOPHILS % (MANUAL) 4 % (0-8); LYMPHOCYTES % (MANUAL) 10 % (20-40); METAMYELOCYTES % 1 % (0-1); MONOCYTES % (MANUAL) 4 % (2-10); MYELOCYTES % 2 % (0-0); NEUTROPHILS % (MANUAL) 74 % (42-75)
[2017-08-28 11:54] VITALS: BP 117/65
--- NOTE | 2017-08-28 12:00 | NUR ---
IV restarted on left hand 22 gauge has good back flow and flushed with ns . IV on right ac infiltrated applied ice.
--- NOTE | 2017-08-28 14:00 | NUR ---
Refused Dressing change on right hip. " Ill have it change later."
[2017-08-28 15:33] LABS: *BILIRUBIN,URIN NEGATIVE (NEGATIVE); *BLOOD, URINE NEGATIVE (NEGATIVE); *CLARITY,URINE CLEAR (CLEAR); *COLOR,URINE YELLOW (YELLOW); *KETONES,URINE NEGATIVE (NEGATIVE); *PROTEIN,URINE NEGATIVE (NEGATIVE); *UROBILINOGEN,URINE 0.2 E.U./dl (NORMAL); LEUKOCYTE ESTERASE ,URINE NEGATIVE (NEGATIVE); NITRITE, URINE NEGATIVE (NEGATIVE); UGLUCOSE NEGATIVE (NEGATIVE)
[2017-08-28 15:42] LABS: BACTERIA,URINE NONE SEEN /HPF (NONE SEEN); RBC,URINE 0-3 /HPF (0-3); SQUAMOUS EPITHELIAL CELL,UR FEW /HPF (NONE SEEN); WBC,URINE 0-3 /HPF (0-3)
--- NOTE | 2017-08-28 15:46 | NUR ---
Clinical Pharmacy Note: Vancomycin Pharmacy to Dose Subjective: To continue vancomycin in this 52 yo male for indication on cellulitis. Patient received vanco 1gm IVPB x1 in Ed on 08/25 at 1635. Objective: height : 69 '' weight: 220 lb BUN 7 Scr 0.9 Wbc 10.3 temp 98.3 trough: 16.8 (08/27 @ 1630) Assessment/Plan As trough was within range, will continue vancomycin 1500mg IVPB Q11hrs for now. As pt is obese, vanco may not be fully distributed, therefore will order another trough before tomorrow's 1300 dose (due at 1230). Will check trough and adjust if needed. Will continue to follow
[2017-08-28 16:05] VITALS: BP 107/72
--- NOTE | 2017-08-28 18:00 | NUR ---
Offered to have the dressing change again. "i want to rest right now." Pt is no acute distress. Call light is within reach.
--- NOTE | 2017-08-28 19:30 | NUR ---
RECEIVED PATIENT LAYING IN BED. COMPLAINING OF RIGHT HIP PAIN 07/24. PATIENT APPEARS TO BE AGITATED AND BOTHERED. A&O X 4. HE STATES HE WANTS HIS PAIN MEDICATIONS. IV ON THE LEFT WRIST #22 PATENT AND INTACT. SKIN ASSESSMENT DONE. NOTED MULTIPLE WOUNDS: RIGHT HIP WITH PACKING, LEFT ARM CLOSED UP WOUND. AND MULTIPLE OLD SCAR AND SCABS ON BILATERAL ARMS. SAFETY INITIATED. CALL LIGHT WITHIN REACH. WILL CONTINUE TO MONITOR.
[2017-08-28 20:10] VITALS: BP 116/76
[2017-08-28] MEDS: DOCUSATE SODIUM 100 MG CAPSULE PO SCH (20:45)
--- NOTE | 2017-08-28 21:30 | NUR ---
PREPARED FOR WOUND DRESSING CHANGE BUT PATIENT REFUSED. SAYING "I JUST WANT TO REST". "I DON'T WANT TO TALK ANYMORE BECAUSE I MIGHT POOP". WILL CONTINUE TO MONITOR.
[2017-08-29] MEDS: VANCOMYCIN IV 1,500 MG in IV DEXTROSE 5% 500 ML IV SCH ×3 (02:10→23:57)
[2017-08-29] MEDS: HYDROMORPHONE 2 MG/1 ML DISP.SYRIN IV PRN ×8 (02:10→23:58)
[2017-08-29] MEDS: IV NS 1000 ML 1,000 ML IV PRN ×2 (02:11→21:00)
[2017-08-29] MEDS: PIPERACILLIN/TAZOBACTAM/D5W 50 ML IV SCH ×4 (03:55→20:56)
--- NOTE | 2017-08-29 03:58 | NUR ---
WOUND CARE PROVIDED. TOLERATED WELL. IV TUBING CHANGED WELL. WILL CONTINUE TO MONITOR.
[2017-08-29] MEDS: PANTOPRAZOLE SODIUM 40 MG TABLET.DR PO SCH (06:05)
--- NOTE | 2017-08-29 06:19 | NUR ---
PATIENT SLEPT INTERMITTENTLY T/ SHIFT. NO ACUTE DISTRESS NOTED. PATIENT FREQUENTLY ASKS FOR PAIN MEDS FOR RIGHT HIP PAIN 08/23, MEDS GIVEN, STATED RELIEF. WOUND CARE PROVIDED ON THE RIGHT HIP. TOLERATED WELL. IVF INFUSING AT 80 CC/HR. SAFETY AND COMFORT MEASURES MAINTAINED T/O SHIFT. ALL MEDS GIVEN ORDERED. ALL NEEDS MET.
[2017-08-29 06:30] VITALS: BP 138/86
[2017-08-29 07:43] LABS: MONOCYTES # (AUTO) 0.4 K/UL (0.1-1.30); WHITE BLOOD COUNT (AUTO) 10.7 K/UL (4.0-11.2)
[2017-08-29 08:00] LABS: BILIRUBIN,TOTAL 0.2 mg/dL (0.2-1.0); CREATININE 0.9 mg/dL (0.6-1.3); MAGNESIUM 2.4 mg/dL (1.8-2.4); PHOSPHOROUS 4.3 mg/dL (2.5-4.9); POTASSIUM 4.2 mmol/L (3.5-5.1); TOTAL PROTEIN, SERUM 8.1 g/dL (6.4-8.2)
--- NOTE | 2017-08-29 08:00 | NUR ---
AWAKE ALERT COOPERATE WELL STATE PAIN MED HELP TO RELIEF PAIN NO SOB CONTINUE IVF AND CALL LIGHT WITHIN REACH
[2017-08-29 08:04] LABS: BASOPHILS % (AUTO) 0.2 % (0.0-2.0); EOSINOPHILS # (AUTO) 0.3 K/uL (0.0-0.7); EOSINOPHILS % (AUTO) 3.1 % (0.0-7.0); HEMATOCRIT 34.2 % (40-50); HEMOGLOBIN 10.9 G/DL (14.0-18.0); LYMPHOCYTES % (AUTO) 9.4 % (20.5-51.5); MEAN CORPUSCULAR HEMOGLOBIN 23.4 UUG (27.0-31.0); MEAN CORPUSCULAR HGB CONC 32 g/dL (32.0-37.0); MEAN CORPUSCULAR VOLUME 73.8 FL (82.0-92.0); MONOCYTES % (AUTO) 3.9 % (0.0-11.0); NEUTROPHILS % (AUTO) 83.4 % (38.5-71.5); PLATELET COUNT (AUTO) 560 K/UL (150-450); RED BLOOD CELL COUNT(AUTO) 4.64 MIL/UL (4.7-6.1)
[2017-08-29] MEDS: MULTIVITAMINS,THERAPEUTIC TABLET PO SCH (08:25)
[2017-08-29] MEDS: LACTOBACILLUS RHAMNOSUS GG 1 EACH CAPSULE PO SCH ×2 (08:25→20:47)
[2017-08-29] MEDS: FERROUS SULFATE 325 MG TABEC PO SCH (08:25)
[2017-08-29 09:23] LABS: BAND % (MANUAL) 4 % (0-10); EOSINOPHILS % (MANUAL) 3 % (0-8); LYMPHOCYTES % (MANUAL) 9 % (20-40); METAMYELOCYTES % 1 % (0-1); MONOCYTES % (MANUAL) 3 % (2-10); MYELOCYTES % 1 % (0-0); NEUTROPHILS % (MANUAL) 79 % (42-75)
[2017-08-29 11:38] VITALS: BP 126/69
--- NOTE | 2017-08-29 13:36 | NUR ---
linical Pharmacy Note: Vancomycin Pharmacy to Dose Subjective: To continue vancomycin in this 52 yo male for indication on cellulitis. Patient received vanco 1gm IVPB x1 in Ed on 08/25 at 1635. Objective: height : 69 '' weight: 220 lb BUN 7 Scr 0.9 Wbc 10.7 BANDS 4 temp 98.5 trough:14.8 (08/29 @ 1230) Assessment/Plan Continue vancomycin 1500mg ivpb q11h
[2017-08-29 15:36] VITALS: BP 113/70
--- NOTE | 2017-08-29 18:00 | NUR ---
HEMODYNAMIC STATUS STABLE PAIN UNDER CONTROL SAFETY MEASURE PROVIDED CALL FONG IN REACH
--- NOTE | 2017-08-29 19:46 | NUR ---
RECEIVED SHIFT REPORT FROM PREVIOUS SHIFT NURSE. INTRODUCTION TO PATIENT, PATIENT IN STABLE CONDITION. NO S/S OF DISTRESS. ENTERED PATIENT'S ROOM AND APPEARED TO BE FRUSTRATED AND VERBALIZED "I CANT GET ANY SLEEP AROUND HERE". ENSURED PATIENT THAT I WILL DO MY BEST TO GET HIM A GET SLEEP FOR THE NIGHT. BOARD CHANGED. BED IN LOCKED, LOW POSITION WITH SIDE RAILS UP X2. COMFORT AND SAFETY WILL BE PROVIDED THROUGHOUT SHIFT.
[2017-08-29 20:45] VITALS: BP 101/57
[2017-08-29] MEDS: DOCUSATE SODIUM 100 MG CAPSULE PO SCH (20:47)
[2017-08-30] MEDS: PIPERACILLIN/TAZOBACTAM/D5W 50 ML IV SCH ×3 (02:34→13:37)
[2017-08-30] MEDS: HYDROMORPHONE 2 MG/1 ML DISP.SYRIN IV PRN ×5 (02:35→14:43)
[2017-08-30 04:00] VITALS: BP 131/83
[2017-08-30] MEDS: PANTOPRAZOLE SODIUM 40 MG TABLET.DR PO SCH (05:31)
--- NOTE | 2017-08-30 06:17 | NUR ---
PATIENT SLEPT INTERMITTENTLY THROUGHOUT NIGHT. PATIENT CALLED FOR PAIN MEDICATION THROUGHOUT THE NIGHT WHEN EACH ADMINISTRATION WAS DUE. PATIENT WOULD SLEEP FOR THREE HOURS EVERY TIME PAIN MEDICATION WAS ADMINISITERED WHICH WAS Q3H. PATIENT IS IN STABLE CONDITION, WITH NO S/S OF DISTRESS. BED IN LOCKED/LOW POSITION WITH SIDE RAILS UP X2. CALL LIGHT WITHIN REACH. SAFETY AND COMFORT PROVIDED TO PATIENT.
[2017-08-30 07:32] LABS: CREATININE 0.8 mg/dL (0.6-1.3); MAGNESIUM 2.4 mg/dL (1.8-2.4); POTASSIUM 4.4 mmol/L (3.5-5.1)
[2017-08-30 07:41] LABS: BASOPHILS % (AUTO) 0.5 % (0.0-2.0); HEMOGLOBIN 10.7 g/dL (12.5-16.3); MONOCYTES # (AUTO) 0.5 K/uL (2.0-10.0); WHITE BLOOD COUNT (AUTO) 9.9 K/uL (3.6-10.2)
[2017-08-30 07:51] LABS: EOSINOPHILS # (AUTO) 0.4 K/uL (0.0-0.7); EOSINOPHILS % (AUTO) 3.6 % (0.0-7.0); HEMATOCRIT 32.8 % (36.7-47.1); LYMPHOCYTES % (AUTO) 10.4 % (20.5-51.5); MEAN CORPUSCULAR HEMOGLOBIN 24.1 uug (23.8-33.4); MEAN CORPUSCULAR HGB CONC 33 g/dL (32.5-36.3); MEAN CORPUSCULAR VOLUME 74.1 fL (73.0-96.2); MONOCYTES % (AUTO) 5.3 % (0.0-11.0); NEUTROPHILS # (AUTO) 7.9 K/uL (1.8-8.9); NEUTROPHILS % (AUTO) 80.2 % (38.5-71.5); PLATELET COUNT (AUTO) 468 K/uL (152-348); RED BLOOD CELL COUNT(AUTO) 4.42 MIL/uL (4.06-5.63)
[2017-08-30 08:30] LABS: BAND % (MANUAL) 2 % (0-10); EOSINOPHILS % (MANUAL) 4 % (0-8); LYMPHOCYTES % (MANUAL) 9 % (20-40); METAMYELOCYTES % 1 % (0-1); MONOCYTES % (MANUAL) 3 % (2-10); NEUTROPHILS % (MANUAL) 81 % (42-75)
--- NOTE | 2017-08-30 08:30 | NUR ---
AWAKE COOPERATE WELL NO PSOB STATE PAIN MED HELP TO RELIEF PAIN ON FALL PRECAUTION CALL FONG IN REACH
[2017-08-30] MEDS: MULTIVITAMINS,THERAPEUTIC TABLET PO SCH (08:39)
[2017-08-30] MEDS: LACTOBACILLUS RHAMNOSUS GG 1 EACH CAPSULE PO SCH (08:39)
[2017-08-30] MEDS: FERROUS SULFATE 325 MG TABEC PO SCH (08:39)
--- NOTE | 2017-08-30 11:00 | NUR ---
DR TODD ,T SEE PATIENT AND LAB RESULT NEW ORDER OK TO D/C HOME TODAY ,D/C INSTRUCTION GIVEN REGARDING F/U WITH OWN PMD CONTINUE WOUND CARE DSG CHANGE AND MEDICATION INSTRUCTION EDUCATION PK GAVE ,VERBALIZES UNDERSTAND AND SIGNS D/C SHEET
[2017-08-30] MEDS: VANCOMYCIN IV 1,500 MG in IV DEXTROSE 5% 500 ML IV SCH (11:01)
[2017-08-30] MEDS ORDERED: HYDR8TAB2 PO (11:50)
--- NOTE | 2017-08-30 11:52 | NUR ---
Clinical Pharmacy Note: Vancomycin Pharmacy to Dose Subjective: To continue vancomycin in this 52 yo male for indication on cellulitis. Objective: height : 69 '' weight: 220 lb BUN 8 Scr 0.8 Wbc 9.9 temp 98.3 WC + MRSA Assessment/Plan Will continue same dose of vancomycin 1500mg IVPB IVPB Q11hrs for today. Will monitor renal function & adjust the dose if needed. Will continue to follow
[2017-08-30 11:58] VITALS: BP 117/79
--- NOTE | 2017-08-30 14:30 | NUR ---
DR TRINIDAD SEE PATIENT AND NO NEW ORDER STATE WANT TO GIVE PRECRIPTION TO PATIENT BUT WANT TO KNOW WOUND CULTURE FINAL RESULT LAB WAS CALL AND RESULT PUT IN CHART AND CALL DR TRINIDAD AND MESSAGE LEFT REGARDING PRECRIPTION
--- NOTE | 2017-08-30 15:30 | NUR ---
PATIENT WANT TO GO HOME PHAMACY INSTRUCTION ON HOME MEDICINE VERBALIZES UNDERSTAND AND HL WAS DISCONTINUE REMIND TO COME TO ER OR GO TO WOUND CARE [facility] FOR F/U ON WOUND CARE ,VERBALIZES UNDERSTAND AND D/C SHEET SIGNS
--- NOTE | 2017-08-30 15:35 | NUR ---
D/C HOME WITH HIS BELONGING CONDITION STABLE DR TRINIDAD TEL # GAVE TO PATIENT REQUEST
== END 2017-08-30 15:35 | disposition home or self-care (01) | DRG 871 ==
LOC: ER 15:03 → MED 18:19
PROVIDERS: ADMIT Internal Medicine; ATTEND Internal Medicine
PROC: 0H9HXZZ Drainage of Right Upper Leg Skin, External Approach (ICD-10-PCS; principal; 2017-08-25)
PROC: 0H9EXZZ Drainage of Left Lower Arm Skin, External Approach (ICD-10-PCS; 2017-08-25)
PROC: 0H9CXZZ Drainage of Left Upper Arm Skin, External Approach (ICD-10-PCS; 2017-08-25)
DX: A41.9 Sepsis, unspecified organism (principal); E43 Unspecified severe protein-calorie malnutrition; E87.2 Acidosis; D69.6 Thrombocytopenia, unspecified; E83.41 Hypermagnesemia; E88.09 Other disorders of plasma-protein metabolism, not elsewhere classified; L03.115 Cellulitis of right lower limb; L02.414 Cutaneous abscess of left upper limb; L02.415 Cutaneous abscess of right lower limb; L03.114 Cellulitis of left upper limb; D50.9 Iron deficiency anemia, unspecified; E66.9 Obesity, unspecified; F17.290 Nicotine dependence, other tobacco product, uncomplicated; G89.29 Other chronic pain; J45.909 Unspecified asthma, uncomplicated; K42.9 Umbilical hernia without obstruction or gangrene; K57.30 Diverticulosis of large intestine without perforation or abscess without bleeding; K59.09 Other constipation; Z59.0 Homelessness; F11.10 Opioid abuse, uncomplicated; R73.9 Hyperglycemia, unspecified; R59.0 Localized enlarged lymph nodes; F19.10 Other psychoactive substance abuse, uncomplicated; F32.9 Major depressive disorder, single episode, unspecified; Z68.32 Body mass index [BMI] 32.0-32.9, adult; E02 Subclinical iodine-deficiency hypothyroidism; F41.9 Anxiety disorder, unspecified; B95.62 Methicillin resistant Staphylococcus aureus infection as the cause of diseases classified elsewhere
CPT/HCPCS: 36415; 70030-TC; 71010; 72193; 83550; 83605; 83735; 84100; 84443; 85025; 85730; 87040; 87070; 87077; 87086; 87806; A4217; A4663; J1170; J2543; J3370; J3490; J7030; J7050; J7060; Q9967

== ENCOUNTER 2017-11-28 17:21 | Inpatient (IN) | payer MEDICARE, OTHER ==
[~2017-11-28] VITALS: Ht 175.3 cm; Wt 95.3 kg
[~2017-11-28 17:21] MED LIST changes: +ALPR2TAB2 PO; +HYDR8TAB2 PO; -LACT1CAP57 PO; -LEVO500T2 PO; +OXYC30TA2 PO; -SULF1TAB48 PO
[2017-11-28] MEDS ORDERED: SULFAMETH/TRIMETH 800/160 MG TABLET PO ONE (17:45)
[2017-11-28] MEDS ORDERED: CEPHALEXIN MONOHYDRATE 500 MG CAPSULE PO ONE (17:45)
--- NOTE | 2017-11-28 17:51 | NUR ---
PT IS IN ROOM #1B. DR GARRIDO EVALUATED THE PT.
[2017-11-28] MEDS ORDERED: SULFAMETH/TRIMETH 800/160 MG TABLET ONE (18:02)
[2017-11-28] MEDS ORDERED: CEPHALEXIN MONOHYDRATE 500 MG CAPSULE ONE (18:03)
[2017-11-28 18:05] LABS: BASOPHILS % (AUTO) 0.3 % (0.0-2.0); EOSINOPHILS # (AUTO) 0.1 K/uL (0.0-0.7); EOSINOPHILS % (AUTO) 0.8 % (0.0-7.0); HEMATOCRIT 29.7 % (36.7-47.1); HEMOGLOBIN 9.6 g/dL (12.5-16.3); LYMPHOCYTES # (AUTO) 0.9 K/uL (20.0-40.0); LYMPHOCYTES % (AUTO) 6.3 % (20.5-51.5); MEAN CORPUSCULAR HEMOGLOBIN 23.4 uug (23.8-33.4); MEAN CORPUSCULAR HGB CONC 32 g/dL (32.5-36.3); MEAN CORPUSCULAR VOLUME 72.5 fL (73.0-96.2); MONOCYTES # (AUTO) 0.9 K/uL (2.0-10.0); MONOCYTES % (AUTO) 6.1 % (0.0-11.0); NEUTROPHILS # (AUTO) 12.8 K/uL (1.8-8.9); NEUTROPHILS % (AUTO) 86.5 % (38.5-71.5); PLATELET COUNT (AUTO) 375 K/uL (152-348); WHITE BLOOD COUNT (AUTO) 14.8 K/uL (3.6-10.2)
[2017-11-28 18:07] LABS: POTASSIUM 4.4 mmol/L (3.5-5.1)
[2017-11-28] MEDS ORDERED: VANCOMYCIN IV 1,000 MG in IV DEXTROSE 5% 250 ML IV ONE (18:15)
[2017-11-28] MEDS ORDERED: GENTAMICIN SULFATE 20 MG/2 ML VIAL IV ONE ×2 (18:30→20:29)
[2017-11-28] MEDS ORDERED: HYDROMORPHONE 1 MG/1 ML DISP.SYRIN IV ONE ×2 (18:45→20:00)
[2017-11-28] MEDS ORDERED: ONDANSETRON IV *ER 4 MG/2 ML VIAL IV ONE ×2 (18:45→20:00)
[2017-11-28] MEDS ORDERED: VANCOMYCIN IV 200 ML ONE (18:51)
[2017-11-28] MEDS ORDERED: IOHEXOL 300MG/ML 100 ML INFUS..BTL ONE (18:55)
[2017-11-28] MEDS ORDERED: NORMAL SALINE FLUSH 10 ML DISP.SYRIN ONE (18:55)
[2017-11-28] MEDS ORDERED: IV NORMAL SALINE 250 ML IV ONE (18:55)
[2017-11-28] MEDS ORDERED: HYDROMORPHONE 2 MG/1 ML DISP.SYRIN ONE ×2 (18:57→20:28)
[2017-11-28] MEDS ORDERED: ONDANSETRON 4 MG/2 ML VIAL ONE ×2 (18:57→20:29)
--- NOTE | 2017-11-28 19:20 | NUR ---
Received report from GORDY Morris. Assumed care of pt at this time. Pt in CT. Admissio pending
[2017-11-28] MEDS ORDERED: ONDANSETRON 4 MG/2 ML VIAL IV PRN (20:00)
[2017-11-28] MEDS ORDERED: ACETAMINOPHEN 325 MG TABLET PO PRN (20:00)
[2017-11-28] MEDS ORDERED: MAGNESIUM HYDROXIDE 30 ML LIQUID UDC PO PRN (20:00)
--- NOTE | 2017-11-28 20:54 | NUR ---
First ABT infusion completed, no adverse reactions noted. Second ABT infusion started. Pt sts pain has improved with previous pain medication. Sts pain is a 3/10 and is tolerable at this time. Pt resting in position of comfort for self, no complaints at this time. Report called to GORDY Kumar. Preparing to transfer pt to the floor.
[2017-11-28 21:00] VITALS: BP 107/66
[2017-11-28] MEDS ORDERED: DOCUSATE SODIUM 250 MG CAPSULE PO SCH (21:00)
[2017-11-28] MEDS: DOCUSATE SODIUM 100 MG CAPSULE PO SCH (21:00)
--- NOTE | 2017-11-28 21:05 | NUR ---
RECEIVED PT. FROM ER BY Arlette OLSON. PT IS AWAKE, ALERT AND ORIENTED. BELONGING LIST DONE. ADMISSION PROCESS AND CARE PLAN INITIATED. .NEW ADMISSION ORDERS RECEIVED FROM DR. SILVEIRA.SAFETY AND COMFORT PROVIDED. CALL LIGHT WITHIN REACH. WILL CONTINUE TO MONITOR.
[2017-11-28] MEDS: PIPERACILLIN/TAZOBACTAM/D5W 50 ML IV SCH (22:41)
[2017-11-28] MEDS: HYDROMORPHONE 1 MG/1 ML DISP.SYRIN IV PRN (22:59)
[2017-11-29] MEDS: PIPERACILLIN/TAZOBACTAM/D5W 50 ML IV SCH ×4 (03:33→22:35)
[2017-11-29] MEDS: HYDROMORPHONE 1 MG/1 ML DISP.SYRIN IV PRN (03:35)
[2017-11-29 04:00] VITALS: BP 108/61
[2017-11-29] MEDS: HYDROCODONE/APAP 10-325 MG TABLET PO PRN ×2 (06:09→20:13)
--- NOTE | 2017-11-29 06:57 | NUR ---
PT HAVE PAIN. ALL PAIN MEDICATION PRESCRIBED WAS GIVEN. PT IS ASKING FOR HIGHER DOSE OF THE MEDICATION. PT IS ASKING FOR DOCTOR. PT IS IRRITATED AND SHOUTING.
[2017-11-29] MEDS: PANTOPRAZOLE SODIUM 40 MG TABLET.DR PO SCH (07:08)
[2017-11-29] MEDS: VANCOMYCIN IV 1,500 MG in IV DEXTROSE 5% 500 ML IV SCH ×2 (08:02→19:55)
[2017-11-29 08:10] LABS: BILIRUBIN,TOTAL 0.4 mg/dL (0.2-1.0); CREATININE 0.9 mg/dL (0.6-1.3); EOSINOPHILS # (AUTO) 0.3 K/uL (0.0-0.7); LYMPHOCYTES # (AUTO) 0.8 K/uL (20.0-40.0); MAGNESIUM 2.1 mg/dL (1.8-2.4); MEAN CORPUSCULAR HEMOGLOBIN 23.7 uug (23.8-33.4); PHOSPHOROUS 3.7 mg/dL (2.5-4.9); POTASSIUM 4.3 mmol/L (3.5-5.1); RED BLOOD CELL COUNT(AUTO) 3.56 MIL/uL (4.06-5.63); TOTAL PROTEIN, SERUM 6.7 g/dL (6.4-8.2)
[2017-11-29 08:22] LABS: BASOPHILS % (AUTO) 0.2 % (0.0-2.0); EOSINOPHILS % (AUTO) 2.4 % (0.0-7.0); LYMPHOCYTES % (AUTO) 6.5 % (20.5-51.5); MEAN CORPUSCULAR HGB CONC 33 g/dL (32.5-36.3); MONOCYTES % (AUTO) 7.7 % (0.0-11.0); NEUTROPHILS # (AUTO) 10.3 K/uL (1.8-8.9); NEUTROPHILS % (AUTO) 83.2 % (38.5-71.5); PLATELET COUNT (AUTO) 292 K/uL (152-348); WHITE BLOOD COUNT (AUTO) 12.4 K/uL (3.6-10.2)
[2017-11-29 08:23] LABS: HEMOGLOBIN 8.4 g/dL (12.5-16.3)
[2017-11-29] MEDS ORDERED: HYDROMORPHONE 1 MG/1 ML DISP.SYRIN IV PRN (09:45)
[2017-11-29] MEDS: HYDROMORPHONE 2 MG/1 ML DISP.SYRIN IV PRN ×4 (09:47→21:35)
--- NOTE | 2017-11-29 11:19 | NUR ---
Clinical Pharmacy Note: Vancomycin Pharmacy to Dose Subjective: To start vancomycin in this 52 y/o male for indication of cellulitis (heroin addict) Patient received vanco 1gm IVPB x1 in ED on 11/28 at 1830 Objective: weight 210 lb height 5'9'' BUN 12 Scr 0.9 Wbc 12.4 temp 98.4 Assessment/Plan As per previous admission, will start vanco 1500mg IVPB q11 h for estimated trough of 15 mcg/ml at steady state. 1st dose is due today at 0800. Plan to check trough before 4th dose (level not yet ordered). Will monitor renal function & adjust the dose if needed. Will follow
[2017-11-29 11:27] LABS: EOSINOPHILS % (MANUAL) 3 % (0-8); LYMPHOCYTES % (MANUAL) 5 % (20-40); MONOCYTES % (MANUAL) 9 % (2-10); NEUTROPHILS % (MANUAL) 83 % (42-75)
[2017-11-29 15:58] VITALS: BP 95/46
[2017-11-29] MEDS: LACTOBACILLUS RHAMNOSUS GG 1 EACH CAPSULE PO SCH (20:12)
[2017-11-29] MEDS: DOCUSATE SODIUM 100 MG CAPSULE PO SCH (20:13)
[2017-11-29 20:54] VITALS: BP 94/54
[2017-11-30] MEDS: HYDROMORPHONE 2 MG/1 ML DISP.SYRIN IV PRN ×7 (01:14→21:12)
[2017-11-30 04:00] VITALS: BP_SYST 102; BP_SYST 120; BP_DIAS 61
[2017-11-30] MEDS: PIPERACILLIN/TAZOBACTAM/D5W 50 ML IV SCH ×4 (04:19→21:12)
--- NOTE | 2017-11-30 05:00 | NUR ---
PT IN ROOM WITH PAIN NOTED TO LEFT BUTTOCK AREA. ABLE TO SIGN CONSENT FOR UPCOMING PROCEDURE OF DRAINING RECENT ABCESS. NO ACUTE DISTRESS OVERNIGHT. ABLE TO TOLERATED ABX IV MEDICATIONS WITHOUT REACTION. BP 102/61.
[2017-11-30] MEDS: HYDROCODONE/APAP 10-325 MG TABLET PO PRN ×2 (05:01→20:29)
[2017-11-30] MEDS: VANCOMYCIN IV 1,500 MG in IV DEXTROSE 5% 500 ML IV SCH (05:07)
[2017-11-30] MEDS: PANTOPRAZOLE SODIUM 40 MG TABLET.DR PO SCH (06:17)
[2017-11-30] MEDS: LACTOBACILLUS RHAMNOSUS GG 1 EACH CAPSULE PO SCH ×2 (09:33→21:12)
--- NOTE | 2017-11-30 10:59 | NUR ---
Clinical Pharmacy Note: Vancomycin Pharmacy to Dose Subjective: To continue vancomycin in this 52 y/o male for indication of cellulitis (heroin addict) Patient received vanco 1gm IVPB x1 in ED on 11/28 at 1830 Objective: weight 210 lb height 5'9'' BUN 12 (11/29) Scr 0.9 (11/29) Wbc 12.4 (11/29) temp 98.4 trough: pending today at 1630 Assessment/Plan As per previous admission, will continue vanco 1500mg IVPB q11 h for estimated trough of 15 mcg/ml at steady state. 3rd dose today at 0600. Checking trough before 4th dose today at 1630. Will check level and adjust as appropriate. Will follow Addendum: 11/30/17 at 1837 by LIBRADO MILLER ADM trough for Vancomycin came back as 13.5 ; adjusted the dose to 2000 mg q12h starting @ 1800. The estimated peak is 40 and trough: 16 will order new trough prior to 4th dose on 12/02 ~ 0600
[2017-11-30 11:23] LABS: BASOPHILS % (AUTO) 0.2 % (0.0-2.0); EOSINOPHILS # (AUTO) 0.4 K/uL (0.0-0.7); EOSINOPHILS % (AUTO) 3.2 % (0.0-7.0); HEMATOCRIT 28.8 % (36.7-47.1); HEMOGLOBIN 9.4 g/dL (12.5-16.3); LYMPHOCYTES # (AUTO) 0.7 K/uL (20.0-40.0); LYMPHOCYTES % (AUTO) 5.3 % (20.5-51.5); MEAN CORPUSCULAR HEMOGLOBIN 23.7 uug (23.8-33.4); MEAN CORPUSCULAR HGB CONC 33 g/dL (32.5-36.3); MEAN CORPUSCULAR VOLUME 72.8 fL (73.0-96.2); MONOCYTES # (AUTO) 0.7 K/uL (2.0-10.0); MONOCYTES % (AUTO) 5.1 % (0.0-11.0); NEUTROPHILS # (AUTO) 11.1 K/uL (1.8-8.9); NEUTROPHILS % (AUTO) 86.2 % (38.5-71.5); PLATELET COUNT (AUTO) 370 K/uL (152-348); RED BLOOD CELL COUNT(AUTO) 3.95 MIL/uL (4.06-5.63); WHITE BLOOD COUNT (AUTO) 12.9 K/uL (3.6-10.2)
[2017-11-30 11:48] LABS: BAND % (MANUAL) 5 % (0-10); EOSINOPHILS % (MANUAL) 1 % (0-8); LYMPHOCYTES % (MANUAL) 7 % (20-40); MONOCYTES % (MANUAL) 5 % (2-10); NEUTROPHILS % (MANUAL) 82 % (42-75)
[2017-11-30 12:36] LABS: CREATININE 0.9 mg/dL (0.6-1.3); PHOSPHOROUS 3.2 mg/dL (2.5-4.9)
--- NOTE | 2017-11-30 14:50 | NUR ---
PT WAS TAKEN OFF THE UNIT FOR PROCEDURE. PT GIVEN DILAUDID FOR PAIN OF THE LEFT BUTTOCKS.
[2017-11-30] MEDS ORDERED: HYDROMORPHONE 1 MG/1 ML DISP.SYRIN IV STA (15:10)
--- NOTE | 2017-11-30 15:11 | NUR ---
GIVEN 1 MG OF DILAUDID ORDERED BY DR. SILVEIRA PATIENT IN CT FOR DRAINAGE OF ABSCESS . PATIENT SCREAMING LACHELLE HE WANTS ADDITIONAL PAIN MEDICATION.FINALLY PATIENT AGREED TO HAVE PROCEDURE DONE. 1550- OBTAINED 130 ML OF PUS DRAINAGE AND SENT TO LAB FOR CULTURES.
[2017-11-30] MEDS ORDERED: LIDOCAINE HCL 1% 20 ML VIAL ONE (15:17)
[2017-11-30] MEDS ORDERED: HYDROMORPHONE 1 MG/1 ML DISP.SYRIN ONE (15:28)
[2017-11-30] MEDS ORDERED: HYDROMORPHONE 1 MG/1 ML DISP.SYRIN IV ONE (16:15)
[2017-11-30 16:35] VITALS: BP 107/64
--- NOTE | 2017-11-30 18:24 | NUR ---
PT PAIN 10/10 GIVEN PAIN MEDICATION. MEDICATION EFFECTIVE. PT IS NOW RESTING IN BED WATCHING TV. NO SIGNS OF RESPIRATORY DISTRESS. BED AT LOWEST LOCKED POSITION. PT ENCOURAGED TO USE THE CALL LIGHT.
[2017-11-30] MEDS: VANCOMYCIN IV 2,000 MG in IV DEXTROSE 5% 500 ML IV SCH (18:37)
[2017-11-30 20:00] VITALS: BP 125/73
--- NOTE | 2017-11-30 20:00 | NUR ---
PT'S A/A/O X4 S/P CT & U/S GUIDED LEFT BUTTOCK ABSCESS DRAINAGE W/ X1 BANDAGE;PT S/P PAIN ON/OFF BUT PAIN'S CONTROLLED BY MEDICATION MD'S ORDER(SEE RECORD);WILL GET A CONSENT FOR I&D ORDER;PT STATED THAT DOCTOR ALREADY EXPLAINED TO HIM AND HE UNDERSTOOD ABOUT IT NOTED.
[2017-11-30] MEDS: DOCUSATE SODIUM 100 MG CAPSULE PO SCH (21:12)
--- NOTE | 2017-12-01 | NUR ---
KEPT NPO AFTER THIS TIME MD'S ORDER;HE VERBALIZED UNDERSTANDING AND ALREADY GOT A VERY GOOD DINNER AND SNACK PRIOR NPO TIME NOTED.KEPT COMFORT.CALL-LIGHT WITHIN REACH.
[2017-12-01] MEDS: HYDROMORPHONE 2 MG/1 ML DISP.SYRIN IV PRN ×6 (01:27→23:31)
[2017-12-01] MEDS: PIPERACILLIN/TAZOBACTAM/D5W 50 ML IV SCH ×4 (03:26→21:56)
[2017-12-01 04:00] VITALS: BP 106/62
[2017-12-01] MEDS: VANCOMYCIN IV 2,000 MG in IV DEXTROSE 5% 500 ML IV SCH ×2 (05:48→18:06)
--- NOTE | 2017-12-01 06:00 | NUR ---
PT SLEPT ON/OFF THROUGH OF THE NIGHT.KEPT NPO AFTER MIDNIGHT FOR SURGERY TODAY;GOT A SCHEDULE FROM FIRE CONTROL TECHNICIAN B WILL BE ~10:00 AM TODAY;PER PT STATED THAT HE WANTED TO TALK TO SURGEON ABOUT 8 AM;WILL ENDORSE TO INCOMING NURSE TO FOLLOW UP.PAIN'S CONTROLLED IN THE SHIFT(SEE RECORD).NO DISTRESS NOTED IN THE SHIFT.
--- NOTE | 2017-12-01 06:30 | NUR ---
SURGERY NURSE CALLED AND ASKED ABOUT PT INFORMATION;EXPLAINED TO HER THAT PER PT REQUESTED TO AM NURSE TO CALL PT REQUEST AT 8 AM.SO FAR,PER PT STATED THAT"DO NOT BOTHER,I WANT TO SLEEP".
--- NOTE | 2017-12-01 06:53 | NUR ---
HELD PROTONIX 40 MG PO AT THIS TIME DUE TO NPO FOR SURGERY IN AM TODAY;WILL ENDORSE NURSE TO FOLLOW UP NOTED.
[2017-12-01] MEDS: PANTOPRAZOLE SODIUM 40 MG TABLET.DR PO SCH (07:00)
--- NOTE | 2017-12-01 07:30 | NUR ---
RECEIVED REPORT FROM PMO LEAD NURSE, PATIENT IN BED AWAKE, REPORTS CONSTIPATION AND PAIN. BED IN LOW POSITION, SIDE RAILS UP X2.
[2017-12-01] MEDS: LACTOBACILLUS RHAMNOSUS GG 1 EACH CAPSULE PO SCH ×2 (08:45→21:52)
[2017-12-01] MEDS ORDERED: POLYMYXIN B SULFATE 500,000 UNITS, BACITRACIN 50,000 UNITS, NORMAL SALINE 20 ML MC ONE ×3 (09:45)
[2017-12-01] MEDS ORDERED: FENTANYL CITRATE 100 MCG/2 ML AMPUL ONE (10:26)
[2017-12-01] MEDS ORDERED: MIDAZOLAM HCL 2 MG/2 ML VIAL ONE (10:27)
[2017-12-01] MEDS ORDERED: SEVOFLURANE 250 ML BOTTLE ONE (10:33)
[2017-12-01] MEDS ORDERED: HYDROMORPHONE 1 MG/1 ML DISP.SYRIN ONE ×2 (11:20→11:45)
[2017-12-01 12:18] VITALS: BP 102/48
--- NOTE | 2017-12-01 13:41 | NUR ---
Clinical Pharmacy Note: Vancomycin Pharmacy to Dose Subjective: To continue vancomycin in this 52 y/o male for indication of cellulitis (heroin addict) Patient received vanco 1gm IVPB x1 in ED on 11/28 at 1830 Objective: weight 210 lb height 5'9'' BUN 12 (11/29) Scr 0.9 (11/29) Wbc 12.4 (11/29) temp 97.9 trough: tomorrow at 0530 Assessment/Plan Will continue new regimen of 2000 mg q12h starting @ 1800. The estimated peak is 40 and trough 16, 3rd dose today at 1800. Trough ordered before 4th scheduled dose at 0530 tomorrow am. RN endorsed to hold dose if trough >20. Will check level in am and adjust as needed. Will follow
[2017-12-01] MEDS ORDERED: CEFAZOLIN 1 G VIAL MC ONE (15:15)
[2017-12-01] MEDS ORDERED: PROPOFOL 200 MG/20 ML BOTTLE IV ONE (15:15)
[2017-12-01] MEDS ORDERED: LIDOCAINE HCL 2% 20 ML VIAL MC ONE (15:15)
[2017-12-01] MEDS ORDERED: IV NORMAL SALINE 1000 ML BAG IV ONE (15:15)
[2017-12-01 15:45] VITALS: BP 121/73
--- NOTE | 2017-12-01 19:06 | NUR ---
PATIENT HAS BEEN COOOPERATIVE WITH TREATMENT THROUGHOUT THE DAY. DRESSING ON BUTTOCK REINFOCED WITH ABD PAD IT WAS SOILED. LINNENS CHANGED AND PATIENT WAS MONITORED FOR PAIN SINCE RETURN FROM SURGERY. CURRENTLY IN BED NO EVIDENCE OF DISTRESS NOTED, BED IN LOW POSITION, SIDE RAILS UP X2.
--- NOTE | 2017-12-01 19:30 | NUR ---
PT AWAKE, ALERT , ORIENTED. PT IV INTACT AND PATENT. ITS ON RIGHT FOREARM. CALL LIGHT WITHIN REACH. WILL CONTINUE TO MONITOR.
[2017-12-01 20:00] VITALS: BP 117/54
[2017-12-01] MEDS: DOCUSATE SODIUM 100 MG CAPSULE PO SCH (21:53)
[2017-12-01] MEDS: HYDROCODONE/APAP 10-325 MG TABLET PO PRN (21:54)
--- NOTE | 2017-12-01 22:00 | NUR ---
PT PULLED HIS IV OUT. HE SAID ITS HURTING HIM. DR ORDERED TO PLACE MIDLINE FOR THE PT.
--- NOTE | 2017-12-01 22:15 | NUR ---
MIDLINE WAS PLACED ON PT RIGHT SUBCLAVIAN VEIN IN UPPERARM 20G. PT ALERT. SAFETY AND COMFORT PROVIDED. WILL CONTINUE TO MONITOR.
[2017-12-02] MEDS: HYDROMORPHONE 2 MG/1 ML DISP.SYRIN IV PRN ×6 (02:46→21:40)
[2017-12-02] MEDS: PIPERACILLIN/TAZOBACTAM/D5W 50 ML IV SCH ×4 (04:18→21:08)
[2017-12-02] MEDS: HYDROCODONE/APAP 10-325 MG TABLET PO PRN ×2 (04:25→19:50)
[2017-12-02 04:51] VITALS: BP 100/45
[2017-12-02] MEDS: VANCOMYCIN IV 2,000 MG in IV DEXTROSE 5% 500 ML IV SCH ×2 (05:40→18:06)
--- NOTE | 2017-12-02 05:49 | NUR ---
Patient slept intermittently t/o shift. No acute distres noted. Pain medications given. All meds given as ordered. Pt had 1 bowel movement. Safety and comfort provided.
[2017-12-02] MEDS: PANTOPRAZOLE SODIUM 40 MG TABLET.DR PO SCH (06:20)
[2017-12-02 06:47] LABS: BASOPHILS % (AUTO) 0.4 % (0.0-2.0); EOSINOPHILS # (AUTO) 0.5 K/uL (0.0-0.7); LYMPHOCYTES # (AUTO) 1.1 K/uL (20.0-40.0); MONOCYTES # (AUTO) 0.5 K/uL (2.0-10.0)
[2017-12-02 07:07] LABS: HEMATOCRIT 29.1 % (36.7-47.1); HEMOGLOBIN 9.4 g/dL (12.5-16.3); LYMPHOCYTES % (AUTO) 15.8 % (20.5-51.5); MEAN CORPUSCULAR HEMOGLOBIN 23.7 uug (23.8-33.4); MEAN CORPUSCULAR HGB CONC 32 g/dL (32.5-36.3); MEAN CORPUSCULAR VOLUME 73.2 fL (73.0-96.2); MONOCYTES % (AUTO) 7.1 % (0.0-11.0); NEUTROPHILS # (AUTO) 4.8 K/uL (1.8-8.9); NEUTROPHILS % (AUTO) 69.7 % (38.5-71.5); PLATELET COUNT (AUTO) 417 K/uL (152-348); RED BLOOD CELL COUNT(AUTO) 3.97 MIL/uL (4.06-5.63)
[2017-12-02 07:08] LABS: WHITE BLOOD COUNT (AUTO) 6.9 K/uL (3.6-10.2)
[2017-12-02 07:09] LABS: BILIRUBIN,TOTAL 0.1 mg/dL (0.2-1.0); CREATININE 0.9 mg/dL (0.6-1.3); MAGNESIUM 2.4 mg/dL (1.8-2.4); PHOSPHOROUS 3.7 mg/dL (2.5-4.9); POTASSIUM 3.9 mmol/L (3.5-5.1); TOTAL PROTEIN, SERUM 7.2 g/dL (6.4-8.2)
--- NOTE | 2017-12-02 07:30 | NUR ---
RECEIVED REPORT FROM NIGHT FROM DRUGLESS PHYSICIAN NURSE, PATIENT IN BED AWAKE, NO EVIDENCE OF DISTRESS NOTED, BED IN LOW POSITION, SIDE RAILS UP X2. NOTED ANTIBIOTIC FULL FROM 6AM SHIFT ADMINISTRATION. STARTED IV ANTIBIOTICS.
[2017-12-02] MEDS: LACTOBACILLUS RHAMNOSUS GG 1 EACH CAPSULE PO SCH ×2 (08:32→21:07)
[2017-12-02 10:07] LABS: BASOPHILS % (MANUAL) 1 % (0-2); EOSINOPHILS % (MANUAL) 7 % (0-8); LYMPHOCYTES % (MANUAL) 15 % (20-40); MONOCYTES % (MANUAL) 3 % (2-10); NEUTROPHILS % (MANUAL) 74 % (42-75)
[2017-12-02 11:38] VITALS: BP 111/71
[2017-12-02 15:38] VITALS: BP 106/70
--- NOTE | 2017-12-02 15:51 | NUR ---
Clinical Pharmacy Note: Vancomycin Pharmacy to Dose Subjective: To continue vancomycin in this 52 y/o male for indication of cellulitis (heroin addict) Objective: weight 210 lb height 5'9'' BUN 12 Scr 0.9 Wbc 6.9 temp 98.5 Vancomycin trough: 14.4 at 0603(extrapolated trough is 15.8) Assessment/Plan Since Vancomycin trough is within the range, will continue same dose of Vancomycin 2000mg IV every 12hrs. Will continue to follow daily. Addendum: 12/02/17 at 1559 by ROHITH POZO vancomycin trough was drawn today at 0603 but infusion started at 0540(possible blood draw while dose infusing). Another Vancomycin trough is ordered for tomorrow at 0530.
--- NOTE | 2017-12-02 18:46 | NUR ---
patient has been cooperative throughout shift today. Wound care performed as per Dr. conrad. Patient continues to have pain and requests Dilaudid every three hours. Currently in bed, no evidence of distress noted, bed in low position, side rails up x2.
--- NOTE | 2017-12-02 19:30 | NUR ---
NSG: pt received a/o x 4, c/o left buttock pain, 06/23, requesting norco. has a midline on right upper arm, currently receiving vanco iv. denies sob, n/v. will medicate and cont with treatment plan.
[2017-12-02 20:00] VITALS: BP 111/62
[2017-12-02] MEDS: DOCUSATE SODIUM 100 MG CAPSULE PO SCH (21:07)
[2017-12-03] MEDS: HYDROMORPHONE 2 MG/1 ML DISP.SYRIN IV PRN ×8 (00:29→22:54)
[2017-12-03] MEDS: PIPERACILLIN/TAZOBACTAM/D5W 50 ML IV SCH ×4 (03:38→22:54)
[2017-12-03 04:00] VITALS: BP 125/80
--- NOTE | 2017-12-03 05:21 | NUR ---
nsg: all needs attended. pt comfortable sleeping. midline on right upper arm patent. had 2 loose bm. cont to monitor.
--- NOTE | 2017-12-03 05:30 | NUR ---
NSG: PT REFUSED TO BE BOTHERED FOR LINE DRAW FOR VANCO TROUGH. WILL TRY AGAIN LATER.
[2017-12-03] MEDS: VANCOMYCIN IV 2,000 MG in IV DEXTROSE 5% 500 ML IV SCH (06:00)
[2017-12-03] MEDS: PANTOPRAZOLE SODIUM 40 MG TABLET.DR PO SCH (06:19)
--- NOTE | 2017-12-03 06:36 | NUR ---
nsg: pt finally agreed to have vanco trough drawn fr midline.
--- NOTE | 2017-12-03 07:30 | NUR ---
RECEIVED REPORT FROM NIGHTY SHIFT NURSE, CURRENTLY IN BED, ASLEEP, NO EVIDENCE OF DISTRESS NOTED AT THIS TIME.
[2017-12-03] MEDS: LACTOBACILLUS RHAMNOSUS GG 1 EACH CAPSULE PO SCH ×2 (09:32→21:43)
[2017-12-03] MEDS ORDERED: VANCOMYCIN IV 2,000 MG in IV DEXTROSE 5% 500 ML IV SCH (11:00)
[2017-12-03 11:57] VITALS: BP 122/58
--- NOTE | 2017-12-03 14:20 | NUR ---
Clinical Pharmacy Note: Vancomycin Pharmacy to Dose Subjective: To continue vancomycin in this 52 y/o male for indication of cellulitis (heroin addict) Objective: weight 210 lb height 5'9'' BUN 12 Scr 0.9 Wbc 6.9 temp 98.4 Vancomycin trough was 19, today at 0630 (1 hr delay due to patient refusal) instead of 0530 (ordered trough again since yesterday's trough was drawn 12/03-602 but infusion started 12/03-529, possible error on sample) Assessment/Plan Since Vancomycin trough is higher than expected, will change dose of Vancomycin 2000mg IV to every 15hrs(second dose tomorrow at 0030). Will draw trough by 4th dose(not ordered yet) for expected trough around 15
[2017-12-03 16:16] VITALS: BP 130/89
[2017-12-03 19:00] VITALS: BP 122/82
--- NOTE | 2017-12-03 19:27 | NUR ---
PATIENT HAS BEEN COOPERATIVE TODAY, WOUND CARE PERFORMED, NO EVIDENCE OF DISTRESS NOTED, BED IN LOW POSITION, SIDE RAILS UP X2.
--- NOTE | 2017-12-03 19:30 | NUR ---
Received patient laying comfortably in bed. No acute distress noted. C/o pain 9/10 on the left buttocks area. IVF infusing as TKO. Urinal at bedside. Midline on the right upper arm patent and intact. Dressing on the left buttocks is C/D/I. Safety initiated. Call light within reach. Room is kept clutter free. Bed is in low ans locked position. Will continue to monitor.
[2017-12-03] MEDS: DOCUSATE SODIUM 100 MG CAPSULE PO SCH (21:00)
[2017-12-03] MEDS: ALPRAZOLAM 0.25 MG TABLET PO PRN (22:22)
[2017-12-03] MEDS ORDERED: ALPRAZOLAM 0.5 MG TABLET ONE (22:36)
--- NOTE | 2017-12-03 23:30 | NUR ---
Transfer to ARU as med surg over flow in toom 122B via wheelchair. Report given to GORDY Tucker. No acute distress noted.
--- NOTE | 2017-12-03 23:30 | NUR ---
Patient transfered from 2nd floor Med-Surg via Wheelchair in stable condition. Report received from GORDY Kelley. Alert and verbally responsive. Able to make needs known. Denies any pain and discomfort at this time. No acute distress. No SOB. KATHLEEN Midline. Patent and intact. Dressing on Left buttocks intact. Kept clean and dry. All needs attended to promptly. Call light within reach. Will continue to monitor.
[2017-12-04] MEDS: HYDROCODONE/APAP 10-325 MG TABLET PO PRN ×2 (00:19→21:19)
[2017-12-04] MEDS: VANCOMYCIN IV 2,000 MG in IV DEXTROSE 5% 500 ML IV SCH ×3 (00:30→17:00)
--- NOTE | 2017-12-04 01:39 | NUR ---
Patient refused IV Vanco. Verbalized, "I don't want my IV antibiotics right now. Can you just wait till the morning?" Explained risks and benefits, but patient still strongly refused. Offered 3x. Will continue to monitor. Addendum: 12/04/17 at 0213 by WALT RICHARD RN Patient allowed and asked me to connect Vanco IV abx. Medication infusing at this time.
[2017-12-04] MEDS: HYDROMORPHONE 2 MG/1 ML DISP.SYRIN IV PRN ×7 (02:06→22:59)
[2017-12-04] MEDS: PIPERACILLIN/TAZOBACTAM/D5W 50 ML IV SCH ×4 (04:00→21:21)
--- NOTE | 2017-12-04 06:29 | NUR ---
Patient refused to take Protonix at this time and verbalizes "I'll take it when I wake up." Will endorse to day shift nurse.
--- NOTE | 2017-12-04 06:38 | NUR ---
Patient slept comfortably throughout the night. Pain medication given as needed. No acute distress. No SOB. KATHLEEN midline patent and intact. Kept clean and dry. All needs attended to prompty. Call light within reach. Will continue to monitor.
[2017-12-04 08:05] VITALS: BP 117/53
[2017-12-04] MEDS: PANTOPRAZOLE SODIUM 40 MG TABLET.DR PO SCH (08:42)
[2017-12-04] MEDS: LACTOBACILLUS RHAMNOSUS GG 1 EACH CAPSULE PO SCH ×2 (08:42→21:19)
--- NOTE | 2017-12-04 09:30 | NUR ---
Pain over buttocks rated as 7/10. PRN Dilaudid given
--- NOTE | 2017-12-04 10:01 | NUR ---
Dressing changed as ordered. With minimal serous sanguinous discharge. No signs of active bleeding
--- NOTE | 2017-12-04 12:59 | NUR ---
Resting in bed pain over left buttocks rated as 9/10. PRN Dilaudid given.
--- NOTE | 2017-12-04 13:40 | NUR ---
[facility], Informed Dr. Daniels, now new orders at this time, on Vancomycin and Zosyn. On contact isolation.
--- NOTE | 2017-12-04 16:11 | NUR ---
Clinical Pharmacy Note: Vancomycin Pharmacy to Dose Subjective: To continue vancomycin in this 52 y/o male for indication of cellulitis (heroin addict) Objective: weight 210 lb height 5'9'' BUN 12 (12/03) Scr 0.9 (12/03) Wbc 6.9 (12/03) temp 97.8 Assessment/Plan Will continue new regimen of Vancomycin 2000mg IV to every 15hrs(third dose today at 1530) for expected trough of 15. Will draw trough by 4th dose(due tomorrow at 0600). Rn endorsed to hold if Tr >20. Will check trough in am and readjust as needed. Will follow
--- NOTE | 2017-12-04 17:00 | NUR ---
Vancomycin unscheduled administration. Informed Pharmacy, and said former dose was documented on dose to be given 15:30 of 12/04/17.
[2017-12-04] MEDS: ALPRAZOLAM 0.25 MG TABLET PO PRN (17:23)
[2017-12-04 20:46] VITALS: BP 121/69
[2017-12-04] MEDS: DOCUSATE SODIUM 100 MG CAPSULE PO SCH (21:00)
--- NOTE | 2017-12-04 21:00 | NUR ---
Received pt on bed alert, awake and oriented x3. Able to make needs known. No acute distress noted. Complained of 8/10 pain on his buttocks, PRN norco was given. No SOB noted. Pt refused wound treatment at this time, states "they just changed my dressing, so you don't need to change it again". Will try to offer again in different time. Midline on KATHLEEN intact and patent, no signs of infection was noted. Vital signs stable. Contact precaution observed and maintained. Call light within reach. All needs met.
[2017-12-04] MEDS ORDERED: HYDROMORPHONE 2 MG/1 ML DISP.SYRIN ONE (23:02)
[2017-12-05] MEDS ORDERED: HYDROMORPHONE 2 MG/1 ML DISP.SYRIN ONE ×2 (03:06→06:18)
[2017-12-05] MEDS: HYDROMORPHONE 2 MG/1 ML DISP.SYRIN IV PRN ×5 (03:18→17:52)
--- NOTE | 2017-12-05 03:40 | NUR ---
Pt complained of 10/10 left buttock pain, PRN dilaudid IV given. However, 10mins after giving the medication pt called again and still complaining of pain. Pt stated that the medication is not working and is requesting to flush his line quickly because "the line is clogged" and is insisting repeatedly to flush the line. Upon assessment, midline noted to be patent and intact. Explained to the pt that the medication will take a couple of mins to work. Pt began to verbalize threats towards nursing staff stating "the doctor is my friend so watch out and be careful. I will remember everyone's face. So goodluck". Brands Editor made aware.
[2017-12-05] MEDS: HYDROCODONE/APAP 10-325 MG TABLET PO PRN ×2 (05:04→20:07)
--- NOTE | 2017-12-05 05:34 | NUR ---
Pt awake and alert. Complained of 8/10 pain, medicated with norco PRN. No acute distress noted. Breathing even and unlabored with normal respirations. Kept clean, dry and comfortable. Call light within reach. All needs attended.
[2017-12-05] MEDS: VANCOMYCIN IV 2,000 MG in IV DEXTROSE 5% 500 ML IV SCH ×2 (06:39→17:52)
[2017-12-05 06:54] LABS: BASOPHILS # (AUTO) 0.1 K/uL (0.0-8.0); BASOPHILS % (AUTO) 0.7 % (0.0-2.0); EOSINOPHILS # (AUTO) 0.5 K/uL (0.0-0.7); EOSINOPHILS % (AUTO) 4.8 % (0.0-7.0); HEMATOCRIT 32.3 % (36.7-47.1); HEMOGLOBIN 10.6 g/dL (12.5-16.3); LYMPHOCYTES # (AUTO) 1.4 K/uL (20.0-40.0); LYMPHOCYTES % (AUTO) 12.7 % (20.5-51.5); MEAN CORPUSCULAR HGB CONC 33 g/dL (32.5-36.3); MEAN CORPUSCULAR VOLUME 73.3 fL (73.0-96.2); MONOCYTES # (AUTO) 0.8 K/uL (2.0-10.0); MONOCYTES % (AUTO) 7.6 % (0.0-11.0); NEUTROPHILS # (AUTO) 8.1 K/uL (1.8-8.9); NEUTROPHILS % (AUTO) 74.2 % (38.5-71.5); PLATELET COUNT (AUTO) 433 K/uL (152-348); RED BLOOD CELL COUNT(AUTO) 4.41 MIL/uL (4.06-5.63); WHITE BLOOD COUNT (AUTO) 10.9 K/uL (3.6-10.2)
[2017-12-05 07:12] LABS: BILIRUBIN,TOTAL 0.2 mg/dL (0.2-1.0); CREATININE 0.8 mg/dL (0.6-1.3); MAGNESIUM 2.3 mg/dL (1.8-2.4); PHOSPHOROUS 4.1 mg/dL (2.5-4.9); POTASSIUM 4.1 mmol/L (3.5-5.1); TOTAL PROTEIN, SERUM 7.6 g/dL (6.4-8.2); VANCOMYCIN,TROUGH 11.5 ug/mL (12.0-20.0)
[2017-12-05] MEDS: PANTOPRAZOLE SODIUM 40 MG TABLET.DR PO SCH (07:18)
[2017-12-05 07:59] LABS: MONOCYTES % (MANUAL) 6 % (2-10)
[2017-12-05 08:00] VITALS: BP 113/68
[2017-12-05 08:00] LABS: EOSINOPHILS % (MANUAL) 5 % (0-8); LYMPHOCYTES % (MANUAL) 14 % (20-40); NEUTROPHILS % (MANUAL) 75 % (42-75)
--- NOTE | 2017-12-05 08:20 | NUR ---
RECEIVED PATIENT AWAKE, ALERT AND ORIENTED RESTING ON HIS BED ON A SEMI- MOCTEZUMA'S POSITION. NO SOB, NO DISTRESS NOTED. ALL NEEDS WERE ATTENDED AND ANTICIPATED. ENCOURAGED PATIENT TO USE CALL LIGHT WHENEVER ASSISTANCE IS NEEDED. WILL CONTINUE TO CLOSELY MONITOR.
[2017-12-05] MEDS: LACTOBACILLUS RHAMNOSUS GG 1 EACH CAPSULE PO SCH ×2 (09:26→20:07)
--- NOTE | 2017-12-05 09:40 | NUR ---
PATIENT NOTED AWAKE, ALERT AND ORIENTED WITH NO SOB DISTRESS. BUT COMPLAINED OF PAIN, DILAUDID ORDERED ADMINISTERED, TOLERATED WELL. WILL CONTINUE TO CLOSELY MONITOR. THE PATIENT. OFFERED TO PERFORM THE WOUND DRESSING BUT PER PATIENT TO COME BACK LATER. WILL FOLLOW UP. ALL NEEDS WERE ATTENDED AND ANTICIPATED. CALL LIGHT WITHIN REACH. ENCOURAGED PATIENT TO USE CALL LIGHT WHENEVER ASSISTANCE IS NEEDED.
--- NOTE | 2017-12-05 10:30 | NUR ---
PATIENT AWAKE, ALERT LYING ON BED WITH NO SOB DISTRESS OR LABORED BREATHING. ALL NEEDS WERE ATTENDED AND ANTICIPATED. OFFERED TO DO WOUND DRESSING TO THE PATIENT BUT PER PATIENT TO COME BACK AGAIN AT 1130. WILL FOLLOW- UP.
--- NOTE | 2017-12-05 11:35 | NUR ---
WOUND TREATMENT DONE ON PATIENT'S LEFT BUTTOCKS ORDERED. NO SIGNS AND SYMPTOMS OF INFECTION NOTED ON THE SITE. NO REDNESS OR ANY PUS NOTED. PATIENT TOLERATED WELL THE TREATMENT.
--- NOTE | 2017-12-05 15:55 | NUR ---
Clinical Pharmacy Note: Vancomycin Pharmacy to Dose Subjective: To continue vancomycin in this 52 y/o male for indication of cellulitis (heroin addict) Objective: weight 210 lb height 5'9'' BUN 13 Scr 0.8 Wbc 10.9 temp 97.7 Vancomycin trough 11.5 today at 0640 Assessment/Plan Since Vancomycin trough is subtherapeutic, will change dose to 2 gram IV every 12hrs(second dose today at 1800) and draw trough by 4th dose(not ordered yet) for expected trough around 15. Will monitor daily.
--- NOTE | 2017-12-05 16:28 | NUR ---
Patient alert and oriented noted resting on bed on a semi- seymour's position, easily aroused with no SOB, no distress noted. Breathing noted to be non-labored with clear breath sounds on both lung fournier. call light placed within his reach. Encouraged patient to use call light whenever assistance is needed. Will continue to closely monitor the patient.
--- NOTE | 2017-12-05 18:18 | NUR ---
Patient asleep, lying on bed on a semi- seymour's position. Easily aroused. Call light within his reach. All his needs were attended and anticipated. Encouraged patient to use call light whenever assistance is needed. No SOB, no distress or any display of pain or discomforts. Will continue to closely monitor the patient.
[2017-12-05] MEDS ORDERED: HYDROMORPHONE 1 MG/1 ML DISP.SYRIN IV PRN (18:30)
[2017-12-05] MEDS: DOCUSATE SODIUM 100 MG CAPSULE PO SCH ×2 (20:07→20:08)
[2017-12-05 21:05] VITALS: BP 125/84
--- NOTE | 2017-12-05 21:07 | NUR ---
NURSING CLINICAL NOTE: Pt was visited by . but pt requested to talk to the MD again regarding his pain medications . Trials to page with no response yet. will continue to follow up.
[2017-12-05] MEDS: CLOBETASOL PROPIONATE 0.05% CREAM 15 GM TUBE TOP SCH (21:17)
[2017-12-05] MEDS: ALPRAZOLAM 0.25 MG TABLET PO PRN (21:17)
--- NOTE | 2017-12-05 21:50 | NUR ---
NURSING CLINICAL NOTE: responded and made aware of patient's request. (See New Orders).
[2017-12-06] MEDS: HYDROMORPHONE 2 MG/1 ML DISP.SYRIN IV PRN ×3 (00:09→06:02)
[2017-12-06] MEDS ORDERED: HYDROMORPHONE 2 MG/1 ML DISP.SYRIN ONE ×3 (00:21→06:03)
[2017-12-06] MEDS: PANTOPRAZOLE SODIUM 40 MG TABLET.DR PO SCH (06:01)
[2017-12-06] MEDS: VANCOMYCIN IV 2,000 MG in IV DEXTROSE 5% 500 ML IV SCH ×2 (06:03→18:00)
[2017-12-06 08:15] VITALS: BP 120/60
[2017-12-06] MEDS: HYDROCODONE/APAP 10-325 MG TABLET PO PRN (09:03)
[2017-12-06] MEDS: LACTOBACILLUS RHAMNOSUS GG 1 EACH CAPSULE PO SCH (09:03)
[2017-12-06] MEDS: CLOBETASOL PROPIONATE 0.05% CREAM 15 GM TUBE TOP SCH (09:03)
--- NOTE | 2017-12-06 09:36 | NUR ---
pt seen on rounding. pt has midline infiltrated. notified md. md reordered to have midline inserted. pt complains of pain on left buttock. pt given norco for pain. pt instructed to apply cream on face. no signs of infection on wound dressing. will continue to monitor.
--- NOTE | 2017-12-06 13:12 | NUR ---
Clinical Pharmacy Note: Vancomycin Pharmacy to Dose Subjective: To continue vancomycin in this 52 y/o male for indication of cellulitis (heroin addict) Objective: weight 210 lb height 5'9'' BUN 13 (12/05) Scr 0.8 (12/05) Wbc 10.9 (12/05) temp 97.7 Vancomycin trough level: pending Assessment/Plan Will continue same dose of vanco 2 gram IVPB every 12hrs for now. Plan to draw vanco trough by 4th dose(ordered for today at 1730). Pharmacy shall review the level & adjust the dose if needed. Will monitor daily. Addendum: 12/06/17 at 6 by ROHITH POZO TROUGH 24.2. WILL HOLD DOSE AND CHECK RANDOM IN AM. WILL FOLLOW.
[2017-12-06] MEDS: HYDROMORPHONE 1 MG/1 ML DISP.SYRIN IV PRN ×3 (13:55→19:56)
--- NOTE | 2017-12-06 15:25 | NUR ---
inserted midline 20g left upper arm. pushed dilaudid for pain. will continue to monitor.
[2017-12-06] MEDS ORDERED: ACET325T53 PO (17:32)
[2017-12-06] MEDS ORDERED: LACT1CAP57 PO (17:32)
[2017-12-06] MEDS ORDERED: HYDR1DIS2 IV (17:32)
[2017-12-06] MEDS ORDERED: PANT40TA2 PO (17:32)
[2017-12-06] MEDS ORDERED: CLOB15CR10 TOP (17:32)
[2017-12-06] MEDS ORDERED: RXVAN XX (17:32)
[2017-12-06] MEDS ORDERED: MULT-1045 PO (17:32)
[2017-12-06] MEDS ORDERED: MAGN400O6 PO (17:32)
[2017-12-06] MEDS ORDERED: DOCU100C36 PO (17:32)
[2017-12-06] MEDS ORDERED: ALPR0.25 PO (17:32)
[2017-12-06] MEDS ORDERED: HYDR-548 PO (17:32)
[2017-12-06] MEDS ORDERED: HYDROMORPHONE HCL 2 MG TABLET PO PRN (17:45)
--- NOTE | 2017-12-06 18:58 | NUR ---
pt stable throughout the day. pt continues to beligerent and wants to go ama. pt discharge finalized. instructed pt to stay in room until picked up. lyndon at 24.1 withheld lyndon. will endorse to overnight stocker nurse.
--- NOTE | 2017-12-06 20:34 | NUR ---
PT DISCHARGED AT THIS TIME. REFUSED TO HAVE PICTURES RE-TAKEN TO LEFT SIDE BUTTOCKS. BELONGINGS AND DOCUMENTS GIVEN WITH EMT.
== END 2017-12-06 20:34 | DRG 871 ==
LOC: ER 17:22 → MED 20:46 → MEDSURG1 12-04 00:09
PROVIDERS: ADMIT Internal Medicine; ATTEND Internal Medicine
PROC: 0J993ZZ Drainage of Buttock Subcutaneous Tissue and Fascia, Percutaneous Approach (ICD-10-PCS; principal; 2017-11-28)
PROC: 0J993ZX Drainage of Buttock Subcutaneous Tissue and Fascia, Percutaneous Approach, Diagnostic (ICD-10-PCS; 2017-11-30)
PROC: 05H533Z Insertion of Infusion Device into Right Subclavian Vein, Percutaneous Approach (ICD-10-PCS; 2017-12-01)
DX: A41.9 Sepsis, unspecified organism (principal); E43 Unspecified severe protein-calorie malnutrition; F11.20 Opioid dependence, uncomplicated; E66.9 Obesity, unspecified; S31.823S Puncture wound without foreign body of left buttock, sequela; D63.8 Anemia in other chronic diseases classified elsewhere; L03.317 Cellulitis of buttock; J98.11 Atelectasis; L02.31 Cutaneous abscess of buttock; B95.62 Methicillin resistant Staphylococcus aureus infection as the cause of diseases classified elsewhere; X78.8XXS Intentional self-harm by other sharp object, sequela; Z68.31 Body mass index [BMI] 31.0-31.9, adult; Z59.0 Homelessness; K57.30 Diverticulosis of large intestine without perforation or abscess without bleeding; K42.9 Umbilical hernia without obstruction or gangrene; Z72.0 Tobacco use; L30.9 Dermatitis, unspecified; F31.9 Bipolar disorder, unspecified; G89.29 Other chronic pain; F19.10 Other psychoactive substance abuse, uncomplicated; Z87.81 Personal history of (healed) traumatic fracture; M54.10 Radiculopathy, site unspecified; J45.909 Unspecified asthma, uncomplicated; R74.8 Abnormal levels of other serum enzymes
CPT/HCPCS: 36415; 70030-TC; 71045; 72192; 72193; 75989; 76705; 83550; 83605; 83735; 84100; 85025; 85610; 85730; 86803; 87070; 87075; 93005; A4217; A4649; A4663; J0690; J1170; J1580; J2250; J2405; J2543; J3010; J3370; J3490; J7030; J7040; J7050; J7060; Q9967

== ENCOUNTER 2018-01-24 03:26 | Inpatient (IN) | payer MEDICARE, OTHER ==
[~2018-01-24] VITALS: Ht 175.3 cm; Wt 103.4 kg
[~2018-01-24 03:26] MED LIST changes: +ACET325T53 PO; +ALPR0.25 PO; -ALPR2TAB2 PO; -Acetaminophen PO; +CLOB15CR10 TOP; +DOCU100C36 PO; -Docusate Sodium PO; +HYDR-548 PO; +HYDR1DIS2 IV; +LACT1CAP57 PO; +MAGN400O6 PO; -OXYC30TA2 PO; +PANT40TA2 PO; +RXVAN XX
[2018-01-24] MEDS ORDERED: MORPHINE SULFATE 4 MG/1 ML DISP.SYRIN IV ONE ×2 (04:30→06:45)
[2018-01-24] MEDS ORDERED: VANCOMYCIN IV 1,000 MG in IV DEXTROSE 5% 250 ML IV ONE (04:30)
[2018-01-24] MEDS ORDERED: PIPERACILLIN SODIUM/TAZOBACTAM 3.375 G in IV DEXTROSE 5% 50 ML IV ONE (04:30)
[2018-01-24] MEDS ORDERED: ONDANSETRON 4 MG/2 ML VIAL IV ONE (04:30)
[2018-01-24] MEDS ORDERED: MORPHINE SULFATE 4 MG/1 ML DISP.SYRIN ONE ×2 (04:42→06:35)
[2018-01-24] MEDS ORDERED: VANCOMYCIN IV 200 ML ONE (04:42)
[2018-01-24] MEDS ORDERED: PIPERACILLIN/TAZOBACTAM/D5W 50 ML IV ONE (04:43)
[2018-01-24] MEDS ORDERED: ONDANSETRON 4 MG/2 ML VIAL ONE (04:43)
[2018-01-24 04:46] LABS: BASOPHILS % (AUTO) 0.2 % (0.0-2.0); EOSINOPHILS # (AUTO) 0.1 K/uL (0.0-0.7); EOSINOPHILS % (AUTO) 0.7 % (0.0-7.0); HEMATOCRIT 31.3 % (36.7-47.1); HEMOGLOBIN 10.3 g/dL (12.5-16.3); LYMPHOCYTES # (AUTO) 0.7 K/uL (20.0-40.0); LYMPHOCYTES % (AUTO) 4.4 % (20.5-51.5); MEAN CORPUSCULAR HEMOGLOBIN 24.8 uug (23.8-33.4); MEAN CORPUSCULAR HGB CONC 33 g/dL (32.5-36.3); MEAN CORPUSCULAR VOLUME 75.1 fL (73.0-96.2); MONOCYTES % (AUTO) 6.1 % (0.0-11.0); NEUTROPHILS % (AUTO) 88.6 % (38.5-71.5); PLATELET COUNT (AUTO) 424 K/uL (152-348); RED BLOOD CELL COUNT(AUTO) 4.17 MIL/uL (4.06-5.63)
[2018-01-24 05:05] LABS: BILIRUBIN,DIRECT 0.1 mg/dL (0.0-0.2); BILIRUBIN,TOTAL 0.4 mg/dL (0.2-1.0); CREATININE 1.6 mg/dL (0.6-1.3); POTASSIUM 3.7 mmol/L (3.5-5.1); TOTAL PROTEIN, SERUM 7.9 g/dL (6.4-8.2)
[2018-01-24] MEDS ORDERED: IV NORMAL SALINE 1000 ML BAG IV ONE ×2 (05:15→06:15)
[2018-01-24] MEDS ORDERED: LEVOFLOXACIN 500 MG/D5W 100ML PIGGYBACK IV ONE (06:00)
[2018-01-24] MEDS ORDERED: HYDR8TAB2 PO (06:17)
[2018-01-24 07:49] LABS: *BILIRUBIN,URIN NEGATIVE (NEGATIVE); *BLOOD, URINE NEGATIVE (NEGATIVE); *CLARITY,URINE CLEAR (CLEAR); *COLOR,URINE YELLOW (YELLOW); *KETONES,URINE NEGATIVE (NEGATIVE); *PROTEIN,URINE 1+ (NEGATIVE); *UROBILINOGEN,URINE 0.2 E.U./dl (NORMAL); LEUKOCYTE ESTERASE ,URINE NEGATIVE (NEGATIVE); NITRITE, URINE NEGATIVE (NEGATIVE); UGLUCOSE NEGATIVE (NEGATIVE)
[2018-01-24 08:03] LABS: BACTERIA,URINE FEW /HPF (NONE SEEN); SQUAMOUS EPITHELIAL CELL,UR FEW /HPF (NONE SEEN); WBC,URINE 0-3 /HPF (0-3)
[2018-01-24] MEDS ORDERED: LEVOFLOXACIN 500 MG/D5W 100 ML ONE (08:36)
[2018-01-24 09:23] VITALS: BP 114/70
[2018-01-24] MEDS: MORPHINE SULFATE 4 MG/1 ML DISP.SYRIN IV PRN ×4 (11:38→23:17)
[2018-01-24 11:41] VITALS: BP 118/74
[2018-01-24 15:10] VITALS: BP 138/64
[2018-01-24] MEDS ORDERED: MAGNESIUM HYDROXIDE 30 ML LIQUID UDC PO PRN (16:00)
[2018-01-24] MEDS ORDERED: ACETAMINOPHEN 325 MG TABLET PO PRN (16:00)
[2018-01-24] MEDS ORDERED: ALBUTEROL SULFATE 8 GM HFA.AER.AD IH PRN (16:00)
[2018-01-24] MEDS ORDERED: ALPRAZOLAM 0.25 MG TABLET PO PRN (16:00)
[2018-01-24] MEDS ORDERED: ONDANSETRON 4 MG/2 ML VIAL IV PRN (16:00)
[2018-01-24] MEDS ORDERED: ALBUTEROL SULFATE 2.5 MG/3 ML NEBU NEB PRN (16:45)
[2018-01-24] MEDS ORDERED: VANCOMYCIN IV 1 G in PREMIXED 0 EACH IV ONE (17:30)
[2018-01-24] MEDS: LACTOBACILLUS RHAMNOSUS GG 1 EACH CAPSULE PO SCH (20:19)
[2018-01-24] MEDS: DOCUSATE SODIUM 100 MG CAPSULE PO SCH (20:19)
[2018-01-24] MEDS: POTASSIUM CHLORIDE 20 MEQ in IV D5/ 0.9% NACL 1,000 ML IV PRN (20:19)
[2018-01-24 20:48] VITALS: BP 110/65
[2018-01-24] MEDS: PIPERACILLIN/TAZOBACTAM/D5W 3.375 G in PREMIXED 1 EACH IV SCH (21:41)
[2018-01-25] MEDS: MORPHINE SULFATE 4 MG/1 ML DISP.SYRIN IV PRN ×7 (03:35→22:02)
[2018-01-25 05:42] VITALS: BP 115/74
[2018-01-25] MEDS: PANTOPRAZOLE SODIUM 40 MG TABLET.DR PO SCH (06:00)
[2018-01-25] MEDS: PIPERACILLIN/TAZOBACTAM/D5W 3.375 G in PREMIXED 1 EACH IV SCH ×3 (06:00→22:01)
[2018-01-25] MEDS ORDERED: Medication Not On Formulary EA (Multivitamin (Multi-Vitamin Daily) 1 EACH) PO SCH (09:00)
[2018-01-25] MEDS: LACTOBACILLUS RHAMNOSUS GG 1 EACH CAPSULE PO SCH ×2 (09:35→20:01)
[2018-01-25] MEDS: MULTIVITAMINS,THERAPEUTIC TABLET PO SCH (09:35)
[2018-01-25 10:17] LABS: BASOPHILS % (AUTO) 0.3 % (0.0-2.0); EOSINOPHILS # (AUTO) 0.2 K/uL (0.0-0.7); EOSINOPHILS % (AUTO) 2.1 % (0.0-7.0); HEMATOCRIT 30.2 % (36.7-47.1); HEMOGLOBIN 9.8 g/dL (12.5-16.3); LYMPHOCYTES # (AUTO) 0.5 K/uL (20.0-40.0); LYMPHOCYTES % (AUTO) 4.6 % (20.5-51.5); MEAN CORPUSCULAR HEMOGLOBIN 24.9 uug (23.8-33.4); MEAN CORPUSCULAR HGB CONC 33 g/dL (32.5-36.3); MEAN CORPUSCULAR VOLUME 76.5 fL (73.0-96.2); MONOCYTES # (AUTO) 0.5 K/uL (2.0-10.0); MONOCYTES % (AUTO) 5.1 % (0.0-11.0); NEUTROPHILS # (AUTO) 9.1 K/uL (1.8-8.9); NEUTROPHILS % (AUTO) 87.9 % (38.5-71.5); PLATELET COUNT (AUTO) 382 K/uL (152-348); RED BLOOD CELL COUNT(AUTO) 3.94 MIL/uL (4.06-5.63)
[2018-01-25 10:20] LABS: BILIRUBIN,TOTAL 0.2 mg/dL (0.2-1.0); CREATININE 0.9 mg/dL (0.6-1.3); MAGNESIUM 2.3 mg/dL (1.8-2.4); PHOSPHOROUS 2.7 mg/dL (2.5-4.9); POTASSIUM 4.4 mmol/L (3.5-5.1); TOTAL PROTEIN, SERUM 6.9 g/dL (6.4-8.2); VANCOMYCIN,RANDOM 4.9 ug/mL (18.0-26.0)
[2018-01-25 10:31] LABS: WHITE BLOOD COUNT (AUTO) 10.4 K/uL (3.6-10.2)
[2018-01-25 11:33] VITALS: BP 125/64
[2018-01-25] MEDS: VANCOMYCIN IV 2,000 MG in IV NORMAL SALINE 500 ML IV SCH (12:26)
[2018-01-25 15:32] VITALS: BP 114/64
[2018-01-25] MEDS ORDERED: risperiDONE-M 0.5 MG TAB.RAPDIS PO PRN (18:00)
[2018-01-25] MEDS: DIVALPROEX 250 MG TABLET.DR PO SCH (20:01)
[2018-01-25] MEDS: DOCUSATE SODIUM 100 MG CAPSULE PO SCH (20:01)
[2018-01-25] MEDS: ALPRAZOLAM 0.5 MG TABLET PO PRN (20:01)
[2018-01-25] MEDS: MUPIROCIN 2% OINT 22 GM TUBE NS SCH (20:02)
[2018-01-25 20:39] VITALS: BP 92/56
[2018-01-25] MEDS ORDERED: DIVALPROEX 125 MG TABLET.DR PO SCH (21:00)
[2018-01-26] MEDS: VANCOMYCIN IV 2,000 MG in IV NORMAL SALINE 500 ML IV SCH ×2 (02:31→18:09)
[2018-01-26] MEDS: POTASSIUM CHLORIDE 20 MEQ in IV D5/ 0.9% NACL 1,000 ML IV PRN (02:31)
[2018-01-26] MEDS ORDERED: MORPHINE SULFATE 4 MG/1 ML DISP.SYRIN ONE (02:37)
[2018-01-26] MEDS: MORPHINE SULFATE 4 MG/1 ML DISP.SYRIN IV PRN ×7 (02:38→23:11)
[2018-01-26] MEDS: PIPERACILLIN/TAZOBACTAM/D5W 3.375 G in PREMIXED 1 EACH IV SCH ×3 (05:36→21:42)
[2018-01-26] MEDS: PANTOPRAZOLE SODIUM 40 MG TABLET.DR PO SCH (06:00)
[2018-01-26] MEDS: MUPIROCIN 2% OINT 22 GM TUBE NS SCH ×3 (09:00→21:42)
[2018-01-26] MEDS: LACTOBACILLUS RHAMNOSUS GG 1 EACH CAPSULE PO SCH ×2 (09:54→21:43)
[2018-01-26] MEDS: MULTIVITAMINS,THERAPEUTIC TABLET PO SCH (09:54)
[2018-01-26] MEDS: DIVALPROEX 250 MG TABLET.DR PO SCH ×2 (09:54→21:42)
[2018-01-26 13:05] VITALS: BP 116/63
[2018-01-26 16:30] VITALS: BP 98/51
[2018-01-26] MEDS: DOCUSATE SODIUM 100 MG CAPSULE PO SCH (21:42)
[2018-01-26 22:23] VITALS: BP 112/65
[2018-01-27] MEDS: ALPRAZOLAM 0.5 MG TABLET PO PRN ×2 (01:05→21:37)
[2018-01-27] MEDS: ACETAMINOPHEN 325 MG TABLET PO PRN ×2 (01:07→21:37)
[2018-01-27] MEDS: MORPHINE SULFATE 4 MG/1 ML DISP.SYRIN IV PRN ×6 (04:36→23:45)
[2018-01-27 04:53] VITALS: BP 99/52
[2018-01-27] MEDS: PANTOPRAZOLE SODIUM 40 MG TABLET.DR PO SCH (06:35)
[2018-01-27] MEDS: PIPERACILLIN/TAZOBACTAM/D5W 3.375 G in PREMIXED 1 EACH IV SCH ×4 (06:43→23:18)
[2018-01-27] MEDS: LACTOBACILLUS RHAMNOSUS GG 1 EACH CAPSULE PO SCH ×2 (09:00→20:34)
[2018-01-27] MEDS: MULTIVITAMINS,THERAPEUTIC TABLET PO SCH (09:00)
[2018-01-27] MEDS: DIVALPROEX 250 MG TABLET.DR PO SCH ×2 (09:00→20:34)
[2018-01-27 09:32] LABS: BASOPHILS % (AUTO) 0.3 % (0.0-2.0); EOSINOPHILS # (AUTO) 0.3 K/uL (0.0-0.7); EOSINOPHILS % (AUTO) 2.4 % (0.0-7.0); HEMOGLOBIN 10.3 g/dL (12.5-16.3); LYMPHOCYTES # (AUTO) 0.9 K/uL (20.0-40.0); LYMPHOCYTES % (AUTO) 7.2 % (20.5-51.5); MEAN CORPUSCULAR HEMOGLOBIN 24.3 uug (23.8-33.4); MEAN CORPUSCULAR HGB CONC 32 g/dL (32.5-36.3); MONOCYTES # (AUTO) 0.7 K/uL (2.0-10.0); MONOCYTES % (AUTO) 5.5 % (0.0-11.0); NEUTROPHILS % (AUTO) 84.6 % (38.5-71.5); PLATELET COUNT (AUTO) 453 K/uL (152-348); RED BLOOD CELL COUNT(AUTO) 4.22 MIL/uL (4.06-5.63); WHITE BLOOD COUNT (AUTO) 11.8 K/uL (3.6-10.2)
[2018-01-27 09:40] LABS: CREATININE 0.8 mg/dL (0.6-1.3); MAGNESIUM 2.2 mg/dL (1.8-2.4); PHOSPHOROUS 4.8 mg/dL (2.5-4.9)
[2018-01-27] MEDS: MUPIROCIN 2% OINT 22 GM TUBE NS SCH ×2 (09:50→20:38)
[2018-01-27] MEDS: POTASSIUM CHLORIDE 20 MEQ in IV D5/ 0.9% NACL 1,000 ML IV PRN (10:35)
[2018-01-27] MEDS: VANCOMYCIN IV 2,000 MG in IV NORMAL SALINE 500 ML IV SCH ×2 (10:41→23:46)
[2018-01-27] MEDS: DOCUSATE SODIUM 100 MG CAPSULE PO SCH (20:38)
[2018-01-27 21:23] VITALS: BP 111/54
[2018-01-28] MEDS: MORPHINE SULFATE 4 MG/1 ML DISP.SYRIN IV PRN ×6 (02:49→21:46)
[2018-01-28 04:00] VITALS: BP 120/66
[2018-01-28] MEDS: PIPERACILLIN/TAZOBACTAM/D5W 3.375 G in PREMIXED 1 EACH IV SCH ×3 (06:03→17:54)
[2018-01-28] MEDS: PANTOPRAZOLE SODIUM 40 MG TABLET.DR PO SCH (06:03)
[2018-01-28] MEDS: DIVALPROEX 250 MG TABLET.DR PO SCH ×2 (08:51→20:26)
[2018-01-28] MEDS: MULTIVITAMINS,THERAPEUTIC TABLET PO SCH (08:51)
[2018-01-28] MEDS: LACTOBACILLUS RHAMNOSUS GG 1 EACH CAPSULE PO SCH ×2 (08:51→20:26)
[2018-01-28] MEDS: MUPIROCIN 2% OINT 22 GM TUBE NS SCH ×2 (08:51→20:26)
[2018-01-28 12:11] VITALS: BP 97/60
[2018-01-28] MEDS: POTASSIUM CHLORIDE 20 MEQ in IV D5/ 0.9% NACL 1,000 ML IV PRN (12:42)
[2018-01-28] MEDS: VANCOMYCIN IV 2,000 MG in IV NORMAL SALINE 500 ML IV SCH (14:54)
[2018-01-28 16:15] VITALS: BP 110/57
[2018-01-28] MEDS: DOCUSATE SODIUM 100 MG CAPSULE PO SCH (20:26)
[2018-01-28] MEDS: ACETAMINOPHEN 325 MG TABLET PO PRN (20:31)
[2018-01-28] MEDS: ALPRAZOLAM 0.5 MG TABLET PO PRN (20:32)
[2018-01-28 21:00] VITALS: BP 109/49
[2018-01-28] MEDS: risperiDONE 0.5 MG TABLET PO SCH (21:46)
[2018-01-29] MEDS: PIPERACILLIN/TAZOBACTAM/D5W 3.375 G in PREMIXED 1 EACH IV SCH ×3 (00:32→11:48)
[2018-01-29] MEDS: MORPHINE SULFATE 4 MG/1 ML DISP.SYRIN IV PRN ×7 (00:33→21:27)
[2018-01-29 05:00] VITALS: BP 104/50
[2018-01-29] MEDS: POTASSIUM CHLORIDE 20 MEQ in IV D5/ 0.9% NACL 1,000 ML IV PRN (05:41)
[2018-01-29 06:13] LABS: BASOPHILS % (AUTO) 0.1 % (0.0-2.0); EOSINOPHILS # (AUTO) 0.4 K/uL (0.0-0.7); EOSINOPHILS % (AUTO) 2.2 % (0.0-7.0); HEMATOCRIT 29.5 % (36.7-47.1); HEMOGLOBIN 9.4 g/dL (12.5-16.3); LYMPHOCYTES % (AUTO) 6.2 % (20.5-51.5); MEAN CORPUSCULAR HEMOGLOBIN 24.2 uug (23.8-33.4); MEAN CORPUSCULAR HGB CONC 32 g/dL (32.5-36.3); MEAN CORPUSCULAR VOLUME 75.7 fL (73.0-96.2); MONOCYTES # (AUTO) 0.8 K/uL (2.0-10.0); MONOCYTES % (AUTO) 5.2 % (0.0-11.0); NEUTROPHILS # (AUTO) 13.8 K/uL (1.8-8.9); NEUTROPHILS % (AUTO) 86.3 % (38.5-71.5); PLATELET COUNT (AUTO) 452 K/uL (152-348)
[2018-01-29 06:31] LABS: CREATININE 0.9 mg/dL (0.6-1.3); MAGNESIUM 2.1 mg/dL (1.8-2.4); PHOSPHOROUS 4.4 mg/dL (2.5-4.9); POTASSIUM 4.3 mmol/L (3.5-5.1)
[2018-01-29] MEDS: VANCOMYCIN IV 2,000 MG in IV NORMAL SALINE 500 ML IV SCH ×2 (06:33→21:40)
[2018-01-29] MEDS: PANTOPRAZOLE SODIUM 40 MG TABLET.DR PO SCH (06:33)
[2018-01-29] MEDS: MULTIVITAMINS,THERAPEUTIC TABLET PO SCH (08:06)
[2018-01-29] MEDS: LACTOBACILLUS RHAMNOSUS GG 1 EACH CAPSULE PO SCH ×2 (08:06→21:00)
[2018-01-29] MEDS: DIVALPROEX 250 MG TABLET.DR PO SCH ×2 (08:06→21:21)
[2018-01-29] MEDS: MUPIROCIN 2% OINT 22 GM TUBE NS SCH ×2 (08:07→21:28)
[2018-01-29 11:19] VITALS: BP 103/62
[2018-01-29] MEDS: AMPICILLIN IV 1 G in IV NORMAL SALINE 50 ML IV SCH ×2 (14:10→22:57)
[2018-01-29 15:38] VITALS: BP 107/56
[2018-01-29 20:52] VITALS: BP 110/64
[2018-01-29] MEDS: DOCUSATE SODIUM 100 MG CAPSULE PO SCH (21:00)
[2018-01-29] MEDS: risperiDONE 0.5 MG TABLET PO SCH (21:20)
[2018-01-30] MEDS: MORPHINE SULFATE 4 MG/1 ML DISP.SYRIN IV PRN ×8 (00:37→21:34)
[2018-01-30] MEDS: ACETAMINOPHEN 325 MG TABLET PO PRN ×2 (01:05→23:06)
[2018-01-30] MEDS: ALPRAZOLAM 0.5 MG TABLET PO PRN ×2 (01:05→23:06)
[2018-01-30 05:29] VITALS: BP 115/52
[2018-01-30] MEDS: AMPICILLIN IV 1 G in IV NORMAL SALINE 50 ML IV SCH ×4 (05:40→21:40)
[2018-01-30] MEDS: PANTOPRAZOLE SODIUM 40 MG TABLET.DR PO SCH (06:50)
[2018-01-30] MEDS ORDERED: MORPHINE SULFATE 4 MG/1 ML DISP.SYRIN ONE (06:58)
[2018-01-30] MEDS ORDERED: MORPHINE SULFATE 2 MG/1 ML DISP.SYRIN ONE (06:58)
[2018-01-30 08:24] LABS: BASOPHILS % (AUTO) 0.2 % (0.0-2.0); EOSINOPHILS # (AUTO) 0.4 K/uL (0.0-0.7); EOSINOPHILS % (AUTO) 2.6 % (0.0-7.0); HEMOGLOBIN 10.1 g/dL (12.5-16.3); LYMPHOCYTES % (AUTO) 7.5 % (20.5-51.5); MEAN CORPUSCULAR HGB CONC 32 g/dL (32.5-36.3); MEAN CORPUSCULAR VOLUME 76.2 fL (73.0-96.2); MONOCYTES # (AUTO) 0.9 K/uL (2.0-10.0); MONOCYTES % (AUTO) 6.7 % (0.0-11.0); NEUTROPHILS # (AUTO) 11.4 K/uL (1.8-8.9); PLATELET COUNT (AUTO) 472 K/uL (152-348); RED BLOOD CELL COUNT(AUTO) 4.19 MIL/uL (4.06-5.63); WHITE BLOOD COUNT (AUTO) 13.7 K/uL (3.6-10.2)
[2018-01-30] MEDS: LACTOBACILLUS RHAMNOSUS GG 1 EACH CAPSULE PO SCH ×2 (09:00→21:35)
[2018-01-30] MEDS: MULTIVITAMINS,THERAPEUTIC TABLET PO SCH (09:00)
[2018-01-30] MEDS: DIVALPROEX 250 MG TABLET.DR PO SCH (09:03)
[2018-01-30] MEDS: MUPIROCIN 2% OINT 22 GM TUBE NS SCH ×2 (09:06→21:00)
[2018-01-30 11:57] VITALS: BP 99/53
[2018-01-30] MEDS: DIVALPROEX 125 MG TABLET.DR PO SCH ×3 (12:26→21:35)
[2018-01-30] MEDS: VANCOMYCIN IV 2,000 MG in IV NORMAL SALINE 500 ML IV SCH ×2 (12:26→12:53)
[2018-01-30] MEDS ORDERED: POLYMYXIN B SULFATE 500,000 UNITS, BACITRACIN 50,000 UNITS, NORMAL SALINE 20 ML MC ONE ×3 (12:45)
[2018-01-30] MEDS ORDERED: BUPIVACAINE 0.25% 30 ML VIAL ONE (13:00)
[2018-01-30] MEDS ORDERED: LIDOCAINE HCL 1% 20 ML VIAL ONE (13:00)
[2018-01-30] MEDS ORDERED: FENTANYL CITRATE 100 MCG/2 ML AMPUL ONE (14:17)
[2018-01-30] MEDS ORDERED: PROPOFOL 200 MG/20 ML BOTTLE IV ONE (16:10)
[2018-01-30 20:29] VITALS: BP 112/67
[2018-01-30] MEDS: DOCUSATE SODIUM 100 MG CAPSULE PO SCH (21:00)
[2018-01-30] MEDS: risperiDONE 0.5 MG TABLET PO SCH (21:35)
[2018-01-30] MEDS: POTASSIUM CHLORIDE 20 MEQ in IV D5/ 0.9% NACL 1,000 ML IV PRN (21:59)
[2018-01-31] MEDS ORDERED: risperiDONE 1 MG TABLET PO SCH ×2 (00:30→21:00)
[2018-01-31] MEDS ORDERED: MORPHINE SULFATE 4 MG/1 ML DISP.SYRIN ONE ×3 (01:09→04:24)
[2018-01-31] MEDS: MORPHINE SULFATE 10 MG/1 ML DISP.SYRIN IV PRN ×2 (01:28→04:46)
[2018-01-31] MEDS: VANCOMYCIN IV 2,000 MG in IV NORMAL SALINE 500 ML IV SCH (03:31)
[2018-01-31 06:23] VITALS: BP 112/70
[2018-01-31] MEDS: PANTOPRAZOLE SODIUM 40 MG TABLET.DR PO SCH (06:29)
[2018-01-31] MEDS: AMPICILLIN IV 1 G in IV NORMAL SALINE 50 ML IV SCH ×2 (06:29→14:18)
[2018-01-31] MEDS: MORPHINE SULFATE 4 MG/1 ML DISP.SYRIN IV PRN ×3 (07:38→14:37)
[2018-01-31 08:10] LABS: CREATININE 0.8 mg/dL (0.6-1.3); MAGNESIUM 2.1 mg/dL (1.8-2.4); PHOSPHOROUS 4.2 mg/dL (2.5-4.9); POTASSIUM 4.5 mmol/L (3.5-5.1)
[2018-01-31] MEDS: MULTIVITAMINS,THERAPEUTIC TABLET PO SCH (08:26)
[2018-01-31] MEDS: DIVALPROEX 125 MG TABLET.DR PO SCH ×2 (08:27→12:26)
[2018-01-31] MEDS: MUPIROCIN 2% OINT 22 GM TUBE NS SCH (08:29)
[2018-01-31] MEDS: LACTOBACILLUS RHAMNOSUS GG 1 EACH CAPSULE PO SCH (08:29)
[2018-01-31 08:32] LABS: BASOPHILS % (AUTO) 0.1 % (0.0-2.0); EOSINOPHILS # (AUTO) 0.5 K/uL (0.0-0.7); EOSINOPHILS % (AUTO) 4.3 % (0.0-7.0); HEMATOCRIT 30.2 % (36.7-47.1); HEMOGLOBIN 9.7 g/dL (12.5-16.3); LYMPHOCYTES # (AUTO) 1.1 K/uL (20.0-40.0); LYMPHOCYTES % (AUTO) 10.9 % (20.5-51.5); MEAN CORPUSCULAR HEMOGLOBIN 24.6 uug (23.8-33.4); MEAN CORPUSCULAR HGB CONC 32 g/dL (32.5-36.3); MEAN CORPUSCULAR VOLUME 76.3 fL (73.0-96.2); MONOCYTES # (AUTO) 0.7 K/uL (2.0-10.0); MONOCYTES % (AUTO) 6.8 % (0.0-11.0); NEUTROPHILS # (AUTO) 8.2 K/uL (1.8-8.9); NEUTROPHILS % (AUTO) 77.9 % (38.5-71.5); PLATELET COUNT (AUTO) 418 K/uL (152-348); RED BLOOD CELL COUNT(AUTO) 3.96 MIL/uL (4.06-5.63); WHITE BLOOD COUNT (AUTO) 10.5 K/uL (3.6-10.2)
[2018-01-31] MEDS ORDERED: SODIUM HYPOCHLORITE 0.125% 473 ML BOTTLE TP SCH (09:00)
[2018-01-31 11:47] VITALS: BP 101/56
[2018-01-31] MEDS: ALPRAZOLAM 0.5 MG TABLET PO PRN (12:26)
[2018-01-31 15:38] VITALS: BP 103/53
[2018-01-31] MEDS ORDERED: risperiDONE 0.5 MG TABLET PO SCH (21:00)
== END 2018-01-31 16:11 | disposition left against medical advice (07) | DRG 871 ==
LOC: ER 03:29 → TELE 08:41 → MED 10:10
PROVIDERS: ADMIT Internal Medicine; ATTEND Internal Medicine
PROC: 05H533Z Insertion of Infusion Device into Right Subclavian Vein, Percutaneous Approach (ICD-10-PCS; principal; 2018-01-28)
PROC: 0J993ZZ Drainage of Buttock Subcutaneous Tissue and Fascia, Percutaneous Approach (ICD-10-PCS; 2018-01-30)
PROC: 0J9M3ZZ Drainage of Left Upper Leg Subcutaneous Tissue and Fascia, Percutaneous Approach (ICD-10-PCS; 2018-01-30)
DX: A41.9 Sepsis, unspecified organism (principal); N17.0 Acute kidney failure with tubular necrosis; J90 Pleural effusion, not elsewhere classified; E87.2 Acidosis; E66.01 Morbid (severe) obesity due to excess calories; D50.9 Iron deficiency anemia, unspecified; F11.10 Opioid abuse, uncomplicated; E87.1 Hypo-osmolality and hyponatremia; L02.416 Cutaneous abscess of left lower limb; L02.31 Cutaneous abscess of buttock; L03.317 Cellulitis of buttock; D63.8 Anemia in other chronic diseases classified elsewhere; S31.813S Puncture wound without foreign body of right buttock, sequela; F19.10 Other psychoactive substance abuse, uncomplicated; F31.9 Bipolar disorder, unspecified; S71.132S Puncture wound without foreign body, left thigh, sequela; X78.8XXS Intentional self-harm by other sharp object, sequela; B95.62 Methicillin resistant Staphylococcus aureus infection as the cause of diseases classified elsewhere; B95.2 Enterococcus as the cause of diseases classified elsewhere; Z68.33 Body mass index [BMI] 33.0-33.9, adult; Z71.3 Dietary counseling and surveillance; J45.909 Unspecified asthma, uncomplicated; Z72.0 Tobacco use; G89.29 Other chronic pain; Z53.09 Procedure and treatment not carried out because of other contraindication; Z91.19 Patient's noncompliance with other medical treatment and regimen; Z59.0 Homelessness; F41.9 Anxiety disorder, unspecified; K59.00 Constipation, unspecified; R59.9 Enlarged lymph nodes, unspecified; K57.30 Diverticulosis of large intestine without perforation or abscess without bleeding; K42.9 Umbilical hernia without obstruction or gangrene; M54.10 Radiculopathy, site unspecified; Z87.81 Personal history of (healed) traumatic fracture; K59.09 Other constipation
CPT/HCPCS: 36415; 36569; 70030-TC; 71045; 72192; 80164; 83605; 83735; 84100; 84450; 84460; 85025; 85730; 87040; 87070; 87075; 87077; 87086; 93005; A4649; A4663; J0290; J1956; J2270; J2405; J2543; J3010; J3370; J3480; J3490; J7030; J7040; J7042; J7050

== ENCOUNTER 2018-06-26 12:45 | Emergency (ER) | payer MEDICARE, OTHER ==
[~2018-06-26] VITALS: Ht 172.7 cm; Wt 86.2 kg
[~2018-06-26 12:45] MED LIST changes: -HYDR-548 PO; -HYDR1DIS2 IV; -HYDR8TAB2 PO; -RXVAN XX
--- NOTE | 2018-06-26 12:55 | NUR ---
Nursing supervisor paste plant notified of pt's SI/HI, requested 1 to 1 sitter. credit control officer called for 1 to 1.
--- NOTE | 2018-06-26 13:02 | NUR ---
cavalry officer at the bedside for safety.
--- NOTE | 2018-06-26 13:23 | NUR ---
SAIMA NARVAEZ at the bedside for MSE.
[2018-06-26] MEDS ORDERED: OLANZAPINE 5 MG TABLET PO ONE (13:30)
[2018-06-26] MEDS ORDERED: OLANZAPINE 5 MG TABLET ONE (13:31)
[2018-06-26 13:55] LABS: BASOPHILS % (AUTO) 0.3 % (0.0-2.0); EOSINOPHILS # (AUTO) 0.3 K/uL (0.0-0.7); EOSINOPHILS % (AUTO) 4.1 % (0.0-7.0); HEMATOCRIT 44.4 % (36.7-47.1); HEMOGLOBIN 14.9 g/dL (12.5-16.3); LYMPHOCYTES # (AUTO) 1.1 K/uL (20.0-40.0); LYMPHOCYTES % (AUTO) 14.7 % (20.5-51.5); MEAN CORPUSCULAR HGB CONC 34 g/dL (32.5-36.3); MEAN CORPUSCULAR VOLUME 83.5 fL (73.0-96.2); MONOCYTES # (AUTO) 0.6 K/uL (2.0-10.0); MONOCYTES % (AUTO) 7.8 % (0.0-11.0); NEUTROPHILS # (AUTO) 5.3 K/uL (1.8-8.9); NEUTROPHILS % (AUTO) 73.1 % (38.5-71.5); PLATELET COUNT (AUTO) 232 K/uL (152-348); RED BLOOD CELL COUNT(AUTO) 5.32 MIL/uL (4.06-5.63); WHITE BLOOD COUNT (AUTO) 7.2 K/uL (3.6-10.2)
--- NOTE | 2018-06-26 14:00 | NUR ---
Pt provided lunch, pt ate 100% of tray.
[2018-06-26 14:05] LABS: CARBON DIOXIDE 29 mmol/L (21-32); CHLORIDE 103 mmol/L (98-107); CREATININE 0.8 mg/dL (0.6-1.3); GLUCOSE 111 mg/dL (74-106); POTASSIUM 4.7 mmol/L (3.5-5.1); UREA NITROGEN, BLOOD 13 mg/dL (7-18)
[2018-06-26 14:07] LABS: ETHANOL < 3 MG/DL (0-0)
[2018-06-26 14:12] LABS: ALANINE AMINOTRANSFERASE 34 U/L (16-63); ALKALINE PHOSPHATASE 84 U/L (50-136); ASPARTATE AMINOTRANSFERASE 16 U/L (15-37); BILIRUBIN,DIRECT 0.1 mg/dL (0.0-0.2); BILIRUBIN,TOTAL 0.3 mg/dL (0.2-1.0); TOTAL PROTEIN, SERUM 7.3 g/dL (6.4-8.2)
[2018-06-26 14:14] LABS: ACETAMINOPHEN < 2.0 ug/mL (10-30)
[2018-06-26 15:54] LABS: *BILIRUBIN,URIN NEGATIVE (NEGATIVE); *BLOOD, URINE NEGATIVE (NEGATIVE); *CLARITY,URINE CLEAR (CLEAR); *COLOR,URINE YELLOW (YELLOW); *KETONES,URINE NEGATIVE (NEGATIVE); *PROTEIN,URINE NEGATIVE (NEGATIVE); *UROBILINOGEN,URINE 0.2 E.U./dl (NORMAL); LEUKOCYTE ESTERASE ,URINE NEGATIVE (NEGATIVE); NITRITE, URINE NEGATIVE (NEGATIVE); UGLUCOSE NEGATIVE (NEGATIVE)
[2018-06-26 16:01] LABS: *AMPHETAMINE, URINE NEGATIVE (NEGATIVE); *BARBITURATE, URINE NEGATIVE (NEGATIVE); *CANNABINOID, URINE NEGATIVE (NEGATIVE); *COCCAINE, URINE NEGATIVE (NEGATIVE); *OPIATE, URINE NEGATIVE (NEGATIVE); *PHENCYCLIDINE SCREEN,URINE NEGATIVE (NEGATIVE)
[2018-06-26 16:09] LABS: BACTERIA,URINE NONE SEEN /HPF (NONE SEEN); RBC,URINE 0-3 /HPF (0-3); SQUAMOUS EPITHELIAL CELL,UR NONE SEEN /HPF (NONE SEEN); WBC,URINE 0-3 /HPF (0-3)
--- NOTE | 2018-06-26 16:32 | NUR ---
Patient is resting comfortably in bed with eyes closed
--- NOTE | 2018-06-26 16:55 | NUR ---
CORNELIA MORALES FROM [facility] CALLED PER REQUEST FOR PSYCH EVAL.
--- NOTE | 2018-06-26 17:43 | NUR ---
[facility] wastewater superintendent at the bedside for psych eval.
--- NOTE | 2018-06-26 18:07 | NUR ---
Pt ate dinner and resting in bed.
--- NOTE | 2018-06-26 18:55 | NUR ---
PER CORNELIA MORALES EVALUATION. PT WILL GO TO [facility] AFTER NURSE REPORT.
--- NOTE | 2018-06-26 19:10 | NUR ---
ATTEMPTED TO GIVE REPORT TO MARIANELA(RN AT THE [facility]), AFTER BEING TRANSFERED MULTIPLE TIMES ON THE PHONE. ED REFUSED TO TAKE REPORT STATING PT NOT ACCEPTED BY THEM.
--- NOTE | 2018-06-26 19:20 | NUR ---
NOTIFIED CORNELIA GARDNER.
--- NOTE | 2018-06-26 19:30 | NUR ---
Gave report to Nursing Summer Law Associate at [facility] Bessy Jain RN.
--- NOTE | 2018-06-26 20:01 | NUR ---
Ambulnz ETA 1 hr at 2100
[2018-06-26] MEDS ORDERED: IBUPROFEN 800 MG TABLET ONE (20:14)
[2018-06-26] MEDS ORDERED: IBUPROFEN 800 MG TABLET PO ONE (20:15)
--- NOTE | 2018-06-26 21:06 | NUR ---
Pt resting comfortably in bed with eyes closed. Waiting for ambulnz for transfer to [facility].
--- NOTE | 2018-06-26 22:09 | NUR ---
Patient Tranfers to [facility] Report given to Bessy KAMINSKI, Nursing Flatwork Feeder. [facility] here to transfer pt to facility. No acute distress noted. All belongings with pt. VSS.
== END 2018-06-26 22:18 | disposition short-term general hospital (02) ==
LOC: ER 12:45
DX: S09.90XA Unspecified injury of head, initial encounter (principal); F29 Unspecified psychosis not due to a substance or known physiological condition; J45.909 Unspecified asthma, uncomplicated; F11.10 Opioid abuse, uncomplicated; Z59.0 Homelessness; W01.198A Fall on same level from slipping, tripping and stumbling with subsequent striking against other object, initial encounter; Y93.I9 Activity, other involving external motion; Y92.89 Other specified places as the place of occurrence of the external cause; Y99.8 Other external cause status
CPT/HCPCS: 36415; 80048; 80076; 80307; 81001; 85025; 93005; 99285; A4663; G0480 ×2; G0481

== ENCOUNTER 2018-07-29 23:34 | Inpatient (IN) | payer MEDICARE, OTHER ==
[~2018-07-29] VITALS: Ht 175.3 cm; Wt 104.4 kg
--- NOTE | 2018-07-29 23:48 | NUR ---
Dr. Marie at bedside for MSE.
--- NOTE | 2018-07-29 23:51 | NUR ---
PT STATES TAKES NO MEDICATIONS AT PRESENT TIME.PT STATES LAST USE OF HEROIN A FEW MONTHS AGO
[2018-07-30] MEDS ORDERED: VANCOMYCIN IV 1,000 MG in IV DEXTROSE 5% 250 ML IV ONE ×2
[2018-07-30] MEDS ORDERED: CEFAZOLIN 2 G in IV DEXTROSE 5% 100 ML IV ONE ×2
[2018-07-30] MEDS ORDERED: CEFAZOLIN 1 G VIAL ONE (00:28)
[2018-07-30 00:32] LABS: BASOPHILS % (AUTO) 0.1 % (0.0-2.0); HEMATOCRIT 41.5 % (36.7-47.1); HEMOGLOBIN 14.1 g/dL (12.5-16.3); LYMPHOCYTES # (AUTO) 0.3 K/uL (20.0-40.0); LYMPHOCYTES % (AUTO) 5.1 % (20.5-51.5); MEAN CORPUSCULAR HEMOGLOBIN 28.9 uug (23.8-33.4); MEAN CORPUSCULAR HGB CONC 34 g/dL (32.5-36.3); MEAN CORPUSCULAR VOLUME 85.1 fL (73.0-96.2); MONOCYTES # (AUTO) 0.5 K/uL (2.0-10.0); MONOCYTES % (AUTO) 7.3 % (0.0-11.0); NEUTROPHILS # (AUTO) 5.6 K/uL (1.8-8.9); NEUTROPHILS % (AUTO) 87.5 % (38.5-71.5); PLATELET COUNT (AUTO) 175 K/uL (152-348); RED BLOOD CELL COUNT(AUTO) 4.88 MIL/uL (4.06-5.63); WHITE BLOOD COUNT (AUTO) 6.4 K/uL (3.6-10.2)
[2018-07-30 00:37] LABS: CREATININE 1.1 mg/dL (0.6-1.3); POTASSIUM 3.6 mmol/L (3.5-5.1)
--- NOTE | 2018-07-30 00:50 | NUR ---
Unable to insert IV after multiple attempts. aware.
--- NOTE | 2018-07-30 00:50 | NUR ---
Ultrasound at bedside.
[2018-07-30] MEDS ORDERED: MAGNESIUM HYDROXIDE 30 ML LIQUID UDC PO PRN ×2 (01:15→01:30)
[2018-07-30] MEDS ORDERED: Z GUARD REMEDY PASTE 57 GM TUBE TOP PRN (01:15)
[2018-07-30] MEDS ORDERED: HYDROCODONE/APAP 5-325MG TABLET PO PRN (01:15)
[2018-07-30] MEDS ORDERED: ONDANSETRON 4 MG/2 ML VIAL IV PRN (01:15)
[2018-07-30] MEDS ORDERED: ACETAMINOPHEN 325 MG TABLET PO PRN (01:15)
[2018-07-30] MEDS ORDERED: HYDROCODONE/APAP 10-325 MG TABLET PO PRN (01:15)
--- NOTE | 2018-07-30 01:20 | NUR ---
Shavon Young SHOE SPRAYER accepted pt for admission to [facility].
[2018-07-30] MEDS ORDERED: ALPRAZOLAM 0.25 MG TABLET PO PRN (01:30)
--- NOTE | 2018-07-30 01:30 | NUR ---
ER started central line on right inguinal triple lumen.
[2018-07-30] MEDS ORDERED: KETOROLAC TROMETHAMINE 30 MG INJ IVP ONE (01:45)
[2018-07-30] MEDS ORDERED: MORPHINE SULFATE 4 MG/1 ML DISP.SYRIN ONE (01:53)
[2018-07-30] MEDS ORDERED: VANCOMYCIN IV 200 ML ONE (01:55)
[2018-07-30] MEDS ORDERED: MORPHINE SULFATE 4 MG/1 ML DISP.SYRIN IV ONE (02:00)
--- NOTE | 2018-07-30 02:26 | NUR ---
Report given to Amee KAMINSKI Medsurg.
--- NOTE | 2018-07-30 03:15 | NUR ---
RECEIVED PT FROM ER VIA [facility]. UNDER THE CARE OF RICHI CLEMONS NP. DX:LLE CELLULITIS. ADMITTING PROCESS AND PLAN INITIATED. BELONGING LIST DONE. NURSING HOME ASSESSMENT DONE. PICTURES TAKEN AND ON THE CHART. CALL LIGHT WITHIN REACH. SAFETY AND COMFORT PROVIDED. WILL CONTINUE TO MONITOR.
[2018-07-30 04:00] VITALS: BP 137/78
[2018-07-30] MEDS ORDERED: ALBUTEROL SULFATE 2.5 MG/3 ML NEBU NEB PRN (04:00)
[2018-07-30] MEDS: IV NS 1000 ML 1,000 ML IV PRN ×2 (04:00→16:22)
[2018-07-30] MEDS: ACETAMINOPHEN 325 MG TABLET PO PRN ×2 (05:14→11:55)
[2018-07-30] MEDS: MORPHINE SULFATE 4 MG/1 ML DISP.SYRIN IV PRN ×3 (05:14→20:41)
[2018-07-30] MEDS: PANTOPRAZOLE SODIUM 40 MG TABLET.DR PO SCH (06:01)
--- NOTE | 2018-07-30 06:19 | NUR ---
PT STABLE. PT SHOWS NO SIGNS OF DISTRESS..PT IV INTACT AND PATENT. PAIN MEDICATION GIVEN AND PT TOLERATED IT WELL. SAFETY AND COMFORT PROVIDED. WILL ENDORSE TO INCOMING NURSE FOR CONTINUITY OF CARE.
[2018-07-30 06:23] LABS: BASOPHILS % (AUTO) 0.3 % (0.0-2.0); CREATININE 1.1 mg/dL (0.6-1.3); HEMATOCRIT 36.7 % (36.7-47.1); HEMOGLOBIN 12.6 g/dL (12.5-16.3); LYMPHOCYTES # (AUTO) 0.4 K/uL (20.0-40.0); LYMPHOCYTES % (AUTO) 5.1 % (20.5-51.5); MEAN CORPUSCULAR HEMOGLOBIN 28.6 uug (23.8-33.4); MEAN CORPUSCULAR HGB CONC 34 g/dL (32.5-36.3); MEAN CORPUSCULAR VOLUME 83.4 fL (73.0-96.2); MONOCYTES # (AUTO) 0.5 K/uL (2.0-10.0); MONOCYTES % (AUTO) 7.4 % (0.0-11.0); NEUTROPHILS # (AUTO) 6.3 K/uL (1.8-8.9); NEUTROPHILS % (AUTO) 87.2 % (38.5-71.5); PHOSPHOROUS 1.4 mg/dL (2.5-4.9); PLATELET COUNT (AUTO) 181 K/uL (152-348); POTASSIUM 3.3 mmol/L (3.5-5.1); RED BLOOD CELL COUNT(AUTO) 4.39 MIL/uL (4.06-5.63); WHITE BLOOD COUNT (AUTO) 7.2 K/uL (3.6-10.2)
[2018-07-30] MEDS ORDERED: PANTOPRAZOLE SODIUM 40 MG TABLET.DR PO SCH (07:00)
--- NOTE | 2018-07-30 07:35 | NUR ---
AWAKE ALERT AND ORIENTED DENIES PAIN OR DISCOMFORTS AT THIS TIME LEFT LOWER EXT ELEVATED ON THE PILLOW TO DECREASE EDEMA REDNESS EVIDENT ALL NEEDS PLACED WITHIN EASY REACH OF PATIENT MADE COMFORTABLE AND WILL CONTINUE TO OBSERVE.
[2018-07-30] MEDS: LACTOBACILLUS RHAMNOSUS GG 1 EACH CAPSULE PO SCH ×2 (08:49→20:33)
[2018-07-30] MEDS: MULTIVITAMINS,THERAPEUTIC TABLET PO SCH (08:49)
[2018-07-30] MEDS: VANCOMYCIN IV 1,500 MG in IV DEXTROSE 5% 500 ML IV SCH ×2 (08:50→20:34)
[2018-07-30] MEDS: CLOBETASOL PROPIONATE 0.05% CREAM 15 GM TUBE TOP SCH ×2 (08:50→20:42)
[2018-07-30] MEDS: ENOXAPARIN SODIUM 40 MG/0.4 ML DISP.SYRIN SQ SCH (08:51)
[2018-07-30] MEDS ORDERED: Medication Not On Formulary EA (Multivitamin (Multi-Vitamin Daily) 1 EACH) PO SCH (09:00)
--- NOTE | 2018-07-30 10:51 | NUR ---
PATIENT IN BED COMPLAINING OF PAIN MEDICATED WITH NORCO ORDERED WILL CONTINUE TO OBSERVE.
--- NOTE | 2018-07-30 11:31 | NUR ---
Clinical Pharmacy Note: Vancomycin Pharmacy to Dose Subjective: To start vancomycin in this 53 y/o male for indication of cellulitis Objective: weight 104 kg height 175cm BMI 34 BUN 10 Scr 1.1 Wbc 7.2 temp 100.9 1gm given in Er 07/30 @0200 Assessment/Plan Will start regimen of vanco 1500mg q12h for estimated trough of 16.5. First dose today at 0900. Will check trough before 4th scheduled dose (not ordered yet). Will also check Scr in am and adjust or dose per level if renal fxn were to appear unstable. Otherwise will follow trough and continue
[2018-07-30 11:34] VITALS: BP 116/71
--- NOTE | 2018-07-30 12:00 | NUR ---
TEMP AT THIS TIME IS 102.8 TOBIAS SILL WORKER HERE AND AWARE STATED TO GO AHEAD AND GIVE HIM TYLENOL ORDERED EVEN THOUGH HE GOT NORCO AT 1051 GIVEN ORDERED AND COOLING MEASURES STARTED.WILL CONTINUE TO OBSERVE.
[2018-07-30] MEDS ORDERED: POTASSIUM CHLORIDE 20 MEQ TAB.PRT.SR PO ONE (13:15)
[2018-07-30 15:40] VITALS: BP 99/62
[2018-07-30] MEDS ORDERED: NEUTRA PHOS PACKET PO ONE (16:00)
--- NOTE | 2018-07-30 18:00 | NUR ---
TEMP AT THIS TIME IS 100.5 CONTINUE WITH COOLING MEASURES PAIN MEDICATION WAS EFFECTIVE ORDERED PER PATIENT WILL CONTINUE TO OBSERVE.
[2018-07-30 19:57] VITALS: BP 109/64
[2018-07-30] MEDS: DOCUSATE SODIUM 100 MG CAPSULE PO SCH (20:34)
[2018-07-30] MEDS: Z GUARD REMEDY PASTE 57 GM TUBE TOP SCH (20:41)
[2018-07-30] MEDS ORDERED: DOCUSATE SODIUM 100 MG CAPSULE PO SCH (21:00)
[2018-07-31] MEDS: MORPHINE SULFATE 4 MG/1 ML DISP.SYRIN IV PRN ×3 (04:16→20:13)
[2018-07-31 04:28] VITALS: BP 135/73
[2018-07-31] MEDS: PANTOPRAZOLE SODIUM 40 MG TABLET.DR PO SCH (06:28)
[2018-07-31 06:32] LABS: MAGNESIUM 1.8 mg/dL (1.8-2.4); PHOSPHOROUS 1.8 mg/dL (2.5-4.9); POTASSIUM 3.4 mmol/L (3.5-5.1)
[2018-07-31 06:56] LABS: EOSINOPHILS % (AUTO) 0.3 % (0.0-7.0); HEMOGLOBIN 11.4 g/dL (12.5-16.3); LYMPHOCYTES # (AUTO) 0.6 K/uL (20.0-40.0); MONOCYTES # (AUTO) 0.6 K/uL (2.0-10.0)
[2018-07-31 07:09] LABS: BASOPHILS % (AUTO) 0.2 % (0.0-2.0); HEMATOCRIT 33.7 % (36.7-47.1); LYMPHOCYTES % (AUTO) 6.3 % (20.5-51.5); MEAN CORPUSCULAR HGB CONC 34 g/dL (32.5-36.3); MEAN CORPUSCULAR VOLUME 85.5 fL (73.0-96.2); MONOCYTES % (AUTO) 6.1 % (0.0-11.0); NEUTROPHILS # (AUTO) 8.4 K/uL (1.8-8.9); NEUTROPHILS % (AUTO) 87.1 % (38.5-71.5); PLATELET COUNT (AUTO) 168 K/uL (152-348); RED BLOOD CELL COUNT(AUTO) 3.94 MIL/uL (4.06-5.63); WHITE BLOOD COUNT (AUTO) 9.6 K/uL (3.6-10.2)
--- NOTE | 2018-07-31 07:14 | NUR ---
Nursing Note: Pt resting comfortably in bed. No distress. No complaints of pain. Bed in low and locked position. Call light in reach.
--- NOTE | 2018-07-31 07:35 | NUR ---
PATIENT IS ASLEEP IN HIS BED WITH EYES CLOSED BUT OPENS EYES WHEN TOUCHED AND WILL PROMPTLY FALL BACK TO SLEEP STATED FEELS COMFORTABLE.ON ROOM AIR WITH NO SHORTNESS OF BREATH AT THIS TIME LEFT LEG REMAINS SWOLLEN AND RED ELEVATED ON A PILLOW AND PATIENT INSTRUCTED TO LEAVE HIS LEFT LEG ELEVATED MUCH POSSIBLE.
[2018-07-31 08:21] LABS: THYROID STIMULATING HORMONE 1.571 mIU/mL (0.358-3.740)
[2018-07-31] MEDS: LACTOBACILLUS RHAMNOSUS GG 1 EACH CAPSULE PO SCH ×2 (08:38→20:12)
[2018-07-31] MEDS: MULTIVITAMINS,THERAPEUTIC TABLET PO SCH (08:38)
[2018-07-31] MEDS: CLOBETASOL PROPIONATE 0.05% CREAM 15 GM TUBE TOP SCH ×2 (08:38→20:16)
[2018-07-31] MEDS: Z GUARD REMEDY PASTE 57 GM TUBE TOP SCH ×2 (08:38→20:12)
[2018-07-31] MEDS: VANCOMYCIN IV 1,500 MG in IV DEXTROSE 5% 500 ML IV SCH ×2 (08:38→22:02)
[2018-07-31] MEDS: ENOXAPARIN SODIUM 40 MG/0.4 ML DISP.SYRIN SQ SCH (08:50)
[2018-07-31] MEDS: ALPRAZOLAM 0.5 MG TABLET PO PRN (08:51)
--- NOTE | 2018-07-31 08:51 | NUR ---
PATIENT STATED FEEL ANXIOUS REQUESTING FOR XANAX MEDICATED ORDERED AND WILL OBSERVE.
--- NOTE | 2018-07-31 11:20 | NUR ---
Clinical Pharmacy Note: Vancomycin Pharmacy to Dose Subjective: To continue vancomycin in this 53 y/o male for indication of cellulitis Objective: weight 104 kg height 175cm BMI 34 BUN 7 Scr 1.0 Wbc 9.6 temp 100.1 Assessment/Plan Will continue same dose of vanco 1500mg IVPB q12h for estimated trough of 15.8 (srcr slightly decreased). 3rd dose today at 0900. Will check trough before 4th scheduled dose (ordered for today at 2029- RN has been informed to hold 2100 dose if vanco trough level is above 20 mcg/ml). Pharmacy shall review the level in am & adjust the dose if needed. Will follow up
[2018-07-31] MEDS ORDERED: NEUTRA PHOS PACKET PO ONE (11:30)
[2018-07-31] MEDS ORDERED: POTASSIUM CHLORIDE 20 MEQ TAB.PRT.SR PO ONE (11:30)
[2018-07-31 12:00] VITALS: BP 113/53
--- NOTE | 2018-07-31 12:00 | NUR ---
TEMP AT THIS TIME IS 100.3 COOLING MEASURES IN PROGRESS AND FLUIDS ENCOURAGED WILL CONTINUE TO OBSERVE.
--- NOTE | 2018-07-31 12:04 | NUR ---
POTASSIUM LEVEL IS 3.4 PHOS IS 1.8 SEE AND REVIEWED BY TOBIAS OLSON WITH REPLACEMENT ORDERS AND NOTED.
[2018-07-31 16:00] VITALS: BP 116/63
--- NOTE | 2018-07-31 16:12 | NUR ---
PATIENT SEEN AND EXAMINED BY DR KAYODE SHETTY DPM WITH NEW ORDERS AND NOTED.
[2018-07-31] MEDS ORDERED: GENTAMICIN SULFATE 0.1% CREAM 15 GM TUBE TOP SCH (16:45)
[2018-07-31] MEDS: ACETAMINOPHEN 325 MG TABLET PO PRN (16:46)
[2018-07-31] MEDS: IV NS 1000 ML 1,000 ML IV PRN (16:46)
--- NOTE | 2018-07-31 17:11 | NUR ---
NOTED SMALL DRAINAGE FROM THE LEFT LEG LATERAL ASPECT COLLECTED AND SENT TO THE LAB FOR C/S PER DR KAYODE CONTRERAS.
[2018-07-31] MEDS: GENTAMICIN SULFATE 0.1% OINT 15 GM TUBE TOP SCH (17:36)
--- NOTE | 2018-07-31 18:35 | NUR ---
PATIENT SEEN AND EXAMINED BY ZEINAB PERSON ENGINEERING TEST MECHANIC WITH NEW ORDERS AWARE OF ELEVATED TEMP WITH NEW ORDERS AND NOTED URINE OBTAINED AND SENT TO THE LAB ORDERED WILL CONTINUE TO OBSERVE AND PROVIDE COMFORT
[2018-07-31 19:00] VITALS: BP 100/49
--- NOTE | 2018-07-31 19:20 | NUR ---
RECEIVED PT AWAKE, ALERT, AND ORIENTEDX3. PT SHOWS NO SIGNS OF DISTRESS. PT IV INTACT AND PATENT. CALL LIGHT WITHIN REACH. BED ALARM . SAFETY AND COMFORT PROVIDED. WILL CONTINUE TO MONITOR.
[2018-07-31] MEDS: DOCUSATE SODIUM 100 MG CAPSULE PO SCH (20:11)
[2018-07-31] MEDS: PIPERACILLIN/TAZOBACTAM/D5W 50 ML IV SCH (20:12)
[2018-08-01] MEDS: MORPHINE SULFATE 4 MG/1 ML DISP.SYRIN IV PRN ×6 (00:23→20:11)
[2018-08-01] MEDS: PIPERACILLIN/TAZOBACTAM/D5W 50 ML IV SCH ×4 (02:13→20:55)
[2018-08-01] MEDS: ALPRAZOLAM 0.5 MG TABLET PO PRN (02:54)
[2018-08-01 04:00] VITALS: BP 104/61
[2018-08-01] MEDS: PANTOPRAZOLE SODIUM 40 MG TABLET.DR PO SCH (06:03)
[2018-08-01 06:35] LABS: BASOPHILS % (AUTO) 0.2 % (0.0-2.0); EOSINOPHILS # (AUTO) 0.1 K/uL (0.0-0.7); EOSINOPHILS % (AUTO) 1.3 % (0.0-7.0); HEMATOCRIT 31.6 % (36.7-47.1); HEMOGLOBIN 10.7 g/dL (12.5-16.3); LYMPHOCYTES # (AUTO) 0.6 K/uL (20.0-40.0); LYMPHOCYTES % (AUTO) 8.3 % (20.5-51.5); MEAN CORPUSCULAR HEMOGLOBIN 28.8 uug (23.8-33.4); MEAN CORPUSCULAR HGB CONC 34 g/dL (32.5-36.3); MEAN CORPUSCULAR VOLUME 85.1 fL (73.0-96.2); MONOCYTES # (AUTO) 0.6 K/uL (2.0-10.0); NEUTROPHILS # (AUTO) 6.4 K/uL (1.8-8.9); NEUTROPHILS % (AUTO) 82.2 % (38.5-71.5); PLATELET COUNT (AUTO) 179 K/uL (152-348); RED BLOOD CELL COUNT(AUTO) 3.71 MIL/uL (4.06-5.63); WHITE BLOOD COUNT (AUTO) 7.8 K/uL (3.6-10.2)
--- NOTE | 2018-08-01 06:56 | NUR ---
PT SLEPT INTERMITTENTLY.PT SHOWS NO SIGNS OF DISTRESS. PRESCRIBED MEDICATION GIVEN AND PT TOLERATED IT WELL. IV INTACT. SAFETY AND COMFORT PROVIDED. WILL ENDORSE TO INCOMING NURSE FOR CONTINUITY OF CARE.
[2018-08-01 07:20] LABS: CREATININE 0.9 mg/dL (0.6-1.3); POTASSIUM 3.6 mmol/L (3.5-5.1)
[2018-08-01] MEDS: LACTOBACILLUS RHAMNOSUS GG 1 EACH CAPSULE PO SCH ×2 (08:25→20:06)
[2018-08-01] MEDS: MULTIVITAMINS,THERAPEUTIC TABLET PO SCH (08:25)
[2018-08-01] MEDS: CLOBETASOL PROPIONATE 0.05% CREAM 15 GM TUBE TOP SCH ×2 (08:26→20:51)
[2018-08-01] MEDS: GENTAMICIN SULFATE 0.1% OINT 15 GM TUBE TOP SCH (08:26)
[2018-08-01] MEDS: Z GUARD REMEDY PASTE 57 GM TUBE TOP SCH ×2 (08:27→20:09)
[2018-08-01] MEDS: ENOXAPARIN SODIUM 40 MG/0.4 ML DISP.SYRIN SQ SCH (08:37)
[2018-08-01] MEDS ORDERED: GENTAMICIN SULFATE 0.1% OINT 15 GM TUBE TOP SCH (09:00)
[2018-08-01 11:25] VITALS: BP 110/48
[2018-08-01] MEDS: VANCOMYCIN IV 1,500 MG in IV DEXTROSE 5% 500 ML IV SCH ×2 (11:41→19:51)
[2018-08-01] MEDS: IV NS 1000 ML 1,000 ML IV PRN (12:48)
--- NOTE | 2018-08-01 14:38 | NUR ---
Clinical Pharmacy Note: Vancomycin Pharmacy to Dose Subjective: To continue vancomycin in this 53 y/o male for indication of cellulitis Objective: weight 104 kg height 175cm BMI 34 BUN 5 Scr 0.9 Wbc 7.8 temp 99.7 Vancomycin trough last night at 2030 was 5.3(unexpectedly low), so repeated trough again today at 0830 and it was 7.3 Assessment/Plan Since repeated trough(by 5th dose) was still under therapeutic level, will change dose to 1 gram every 8hrs (second dose tonight at 2000) and draw trough by 4th dose(ordered for tomorrow at 1130) for expected trough around 15. Will follow the level. Will monitor daily.
--- NOTE | 2018-08-01 19:20 | NUR ---
RECEIVED PT AWAKE, ALERT,AND ORIENTEDX3. PT SHOWS NO SIGNS OF DISTRESS. PT IV INTACT AND PATENT. SAFETY AND COMFORT PROVIDED. WILL CONTINUE TO MONITOR.
[2018-08-01] MEDS: METHADONE HCL 10 MG TABLET PO SCH (19:50)
[2018-08-01] MEDS: DOCUSATE SODIUM 100 MG CAPSULE PO SCH (20:06)
[2018-08-01] MEDS: MUPIROCIN 2% OINT 22 GM TUBE NS SCH (20:10)
[2018-08-01 20:32] VITALS: BP 115/70
[2018-08-02] MEDS: MORPHINE SULFATE 4 MG/1 ML DISP.SYRIN IV PRN ×5 (00:20→20:28)
[2018-08-02] MEDS: PIPERACILLIN/TAZOBACTAM/D5W 50 ML IV SCH ×4 (01:09→20:36)
[2018-08-02] MEDS: VANCOMYCIN IV 1,500 MG in IV DEXTROSE 5% 500 ML IV SCH ×3 (03:08→21:40)
[2018-08-02 04:00] VITALS: BP 105/62
[2018-08-02] MEDS: PANTOPRAZOLE SODIUM 40 MG TABLET.DR PO SCH (06:02)
--- NOTE | 2018-08-02 06:14 | NUR ---
PT SLEPT INTERMITTENTLY. PT SHOWS NO SIGNS OF DISTRESS. PT IV INTACT AND PATENT.PT AGITATED AND WHEN YOU COME BACK WILL APOLOGIZE FOR HIS BEHAVIOR. PRESCRIBED MEDICATION GIVEN AND PT TOLERATED IT WELL. PT STABLE . VITAL SIGNS WITHIN NORMAL LIMIT.SAFETY AND COMFORT PROVIDED.ALL NEEDS ARE MET. WILL ENDORSE TO DAYSMAFT NURSE FOR CONTINUITY OF CARE.
[2018-08-02 06:49] LABS: CREATININE 0.8 mg/dL (0.6-1.3); POTASSIUM 3.7 mmol/L (3.5-5.1)
--- NOTE | 2018-08-02 07:10 | NUR ---
PATIENT RECEIVED IN BED AWAKE, AAOX3 NO ACUTE DISTRESS NOTED. IV ACCESS ON RIGHT INGUINAL AREA INTACT RUNNING NS @ 100 CC/HR INFUSING WELL. ON CONTACT ISOLATION FOR MRSA NARES. NO COMPLAINTS OF PAIN AT THIS TIME. C/O FEELING ANXIOUS. COMFORT MEASURES PROVIDED CALL LIGHT WITHIN REACH. WILL CONTINUE TO MONITOR CLOSELY.
[2018-08-02] MEDS: MULTIVITAMINS,THERAPEUTIC TABLET PO SCH (08:01)
[2018-08-02] MEDS: GENTAMICIN SULFATE 0.1% OINT 15 GM TUBE TOP SCH (08:02)
[2018-08-02] MEDS: LACTOBACILLUS RHAMNOSUS GG 1 EACH CAPSULE PO SCH ×2 (08:02→20:38)
[2018-08-02] MEDS: MUPIROCIN 2% OINT 22 GM TUBE NS SCH ×2 (08:02→20:39)
[2018-08-02] MEDS: Z GUARD REMEDY PASTE 57 GM TUBE TOP SCH ×2 (08:02→20:38)
[2018-08-02] MEDS: ENOXAPARIN SODIUM 40 MG/0.4 ML DISP.SYRIN SQ SCH (08:12)
[2018-08-02] MEDS: METHADONE HCL 10 MG TABLET PO SCH (09:11)
[2018-08-02] MEDS: CLOBETASOL PROPIONATE 0.05% CREAM 15 GM TUBE TOP SCH ×2 (09:18→20:39)
[2018-08-02 11:04] VITALS: BP 110/53
--- NOTE | 2018-08-02 11:27 | NUR ---
WOUND CARE RECEIVED CONSULT FOR LLE CELLULITIS. PATIENT CURRENTLY BEING FOLLOWED BY PODIATRY DR HEADLEY. WILL DEFER CONSULT AND ALL TREATMENT PLANS TO DPM AT THIS TIME. PATIENT WITH LEON AT 20. WILL SEE PRN.
--- NOTE | 2018-08-02 12:03 | NUR ---
Clinical Pharmacy Note: Vancomycin Pharmacy to Dose Subjective: To continue vancomycin in this 53 y/o male for indication of cellulitis Objective: weight 104 kg height 175cm BMI 34 BUN 5 Scr 0.8 Wbc 7.8 (08/01) temp 99.3 Vancomycin trough level: 15.7 Assessment/Plan Since vanco trough level is within therapeutic range, will continue same dose of 1 gram IVPB every 8hrs for today. Will monitor renal function & adjust the dose if needed. Will follow
[2018-08-02 15:03] VITALS: BP 118/64
--- NOTE | 2018-08-02 18:39 | NUR ---
PATIENT IN BED. NO DISTRESS NOTED IV ACCESS TRIPLE LUMEN INTACT ON RIGHT INGUINAL AREA IVF INFUSIONG WELL. LEFT LOWER LEG STILL SWOLLEN AND RED. WOUND CARE DONE, WOUND COVERED WITH MEPILEX. PAIN CONTROLLED W/ MORPHINE PRN. WELL TOLERATED. ALL NEEDS ATTENDED AND ANTICIPATED. CALL LIGHT WITHIN REACH. WILL CONTINUE TO MONITOR CLOSELY.
--- NOTE | 2018-08-02 19:00 | NUR ---
RECEIVED IN BED ALERT ORIENTED, CENTRAL LINE ON R GROIN, TWO LINE PATENT, CONT ON PAIN MANAGEMENT, CONT ON CONTACT ISOLATION, MRSA NARES, KEPT LEFT LEG CELLULITIS COVERED WITH DRESSINGS. CONT TO MONITOR.
[2018-08-02 19:37] VITALS: BP 118/74
[2018-08-02] MEDS: DOCUSATE SODIUM 100 MG CAPSULE PO SCH (20:38)
--- NOTE | 2018-08-02 22:30 | NUR ---
PATIENT REFUSED TO TAKE 21OO MEDICATIONS, CONT TO OFFER, CONT TO MONITOR.
[2018-08-03] MEDS: MORPHINE SULFATE 4 MG/1 ML DISP.SYRIN IV PRN ×6 (01:17→23:32)
[2018-08-03] MEDS: PIPERACILLIN/TAZOBACTAM/D5W 50 ML IV SCH ×3 (02:34→13:50)
[2018-08-03] MEDS: VANCOMYCIN IV 1,500 MG in IV DEXTROSE 5% 500 ML IV SCH ×3 (03:29→20:38)
[2018-08-03 03:42] VITALS: BP 104/74
--- NOTE | 2018-08-03 04:48 | NUR ---
PATIENT ALERT ORIENTED, NO SOB NO CHEST PAIN, PATIENT HAS EPISODES OF VERBALLY ABUSIVE TO STAFF IF HE DOES NOT GET WHAT HE WANTS. CONT ON PAIN MANAGEMENT, ATTENDS ALL NEEDS, CONT TO MONITOR.
[2018-08-03] MEDS: ALPRAZOLAM 0.5 MG TABLET PO PRN (05:06)
[2018-08-03] MEDS: PANTOPRAZOLE SODIUM 40 MG TABLET.DR PO SCH (06:13)
--- NOTE | 2018-08-03 06:17 | NUR ---
PATIENT GOWN SOILED BUT REFUSED TO BE CHANGED AT THIS TIME, SO THUS BED SHEET LOOK SOIL BUT REFUSED PREFER TO SLEEP. CONT ON PAIN MANAGEMENT OF L LEG CELLULITIS, R GROIN PICC LINE PATENT, FLUSH FREQUENTLY, REMAIN IN CONTACT ISOLATION, XANAX EFFECTIVE FOR ANXIETY, WITH NO ADVERSE REACTION NOTED, CONT TO MONITOR.
--- NOTE | 2018-08-03 07:15 | NUR ---
PATIENT RECEIVED IN BED ASLEEP, AAOX3 NO ACUTE DISTRESS NOTED. IV ACCESS ON RIGHT INGUINAL AREA INTACT, IVF HELD FOR NOW, PATIENT REFUSED PER TIRE SHOP MANAGER RN ON CONTACT ISOLATION FOR MRSA NARES. NO COMPLAINTS OF PAIN AT THIS TIME. ROOM UNKEMPT. PATIENT REFUSED BED BATH AND LINEN CHANGE LAST NIGHT. COMFORT MEASURES PROVIDED CALL LIGHT WITHIN REACH. WILL CONTINUE TO MONITOR CLOSELY
[2018-08-03] MEDS: LACTOBACILLUS RHAMNOSUS GG 1 EACH CAPSULE PO SCH ×2 (08:29→20:38)
[2018-08-03] MEDS: MULTIVITAMINS,THERAPEUTIC TABLET PO SCH (08:29)
[2018-08-03] MEDS: MUPIROCIN 2% OINT 22 GM TUBE NS SCH ×2 (08:31→20:39)
[2018-08-03] MEDS: Z GUARD REMEDY PASTE 57 GM TUBE TOP SCH ×2 (08:31→20:39)
[2018-08-03] MEDS: METHADONE HCL 10 MG TABLET PO SCH ×2 (08:31→20:38)
[2018-08-03] MEDS: GENTAMICIN SULFATE 0.1% OINT 15 GM TUBE TOP SCH (08:32)
[2018-08-03] MEDS: CLOBETASOL PROPIONATE 0.05% CREAM 15 GM TUBE TOP SCH ×2 (08:32→20:39)
[2018-08-03] MEDS: ENOXAPARIN SODIUM 40 MG/0.4 ML DISP.SYRIN SQ SCH (08:37)
--- NOTE | 2018-08-03 09:17 | NUR ---
Clinical Pharmacy Note: Vancomycin Pharmacy to Dose Subjective: To continue vancomycin in this 53 y/o male for indication of cellulitis Objective: weight 104 kg height 175cm BMI 34 BUN 5 (08/02) Scr 0.8 (08/02) Wbc 7.8 (08/01) temp 98 Vancomycin trough level: 15.7 ( on 08/02) Assessment/Plan Will continue same dose of 1500 mg IVPB every 8hrs for today. Will monitor renal function & adjust the dose if needed. Will follow
[2018-08-03] MEDS: IV NS 1000 ML 1,000 ML IV PRN ×2 (09:49→20:39)
--- NOTE | 2018-08-03 09:50 | NUR ---
PATIENT REFUSED PT EVAL, BECAME AGITATED AND UPSET, VERBALLY ABUSIVE TOWARDS RASHEEDA PT.
--- NOTE | 2018-08-03 10:20 | NUR ---
SEEN AND EXAMINED BY SHANNON DYNAMICS AX TECHNICAL ARCHITECT. INFORMED TAHT PATIENT REFUSED PT EVAL. DYNAMICS AX TECHNICAL ARCHITECT EXPLAINED THAT PT EVAL IS NEEDED, PATIENT AGREED TO BE SEEN BY PHYSICAL THERAPIST CALLED RASHEEDA PT, WILL SEE PATIENT.
--- NOTE | 2018-08-03 11:08 | NUR ---
WOUND CULTURE RESULTS, UPDATE, LEFT LOWER EXT - STAPH AUREUS MRSA. SENSITIVITIES RESULTED. COPY PLACED IN CHART.
[2018-08-03 12:00] VITALS: BP 136/81
[2018-08-03 15:36] VITALS: BP 112/68
--- NOTE | 2018-08-03 18:15 | NUR ---
SEEN AND EXAMINED BY DR. HERNÁNDEZ PAIN SPECIALIST.
--- NOTE | 2018-08-03 18:34 | NUR ---
PATIENT ON BED ASLEEP. STABLE CONDITION. TRIPLE LUMEN IV ACCESS INTACT AND PATENT. IVF INFUSING. COMPLAINS OF LEFT LOWER LEG PAIN, MORPHINE 4MG Q4 PRN FOR PAIN MANAGEMENT. ALL NEEDS ATTENDED AND ANTICIPATED. CALL LIGHT WITHIN REACH. Addendum: 08/03/18 at 1903 by MARIBEL HIDALGO RN PATIENT REFUSED IVF FOR NOW. STATING "IT KEEPS ON BEEPING TURN IT OFF". WILL ENDORSE TO YULY KAMINSKI
[2018-08-03 20:18] VITALS: BP 104/65
[2018-08-03] MEDS: DOCUSATE SODIUM 100 MG CAPSULE PO SCH (20:39)
[2018-08-04] MEDS: ALPRAZOLAM 0.5 MG TABLET PO PRN (02:17)
[2018-08-04] MEDS: HYDROCODONE/APAP 10-325 MG TABLET PO PRN ×2 (02:17→12:32)
[2018-08-04] MEDS: VANCOMYCIN IV 1,500 MG in IV DEXTROSE 5% 500 ML IV SCH ×2 (04:02→13:57)
[2018-08-04] MEDS: MORPHINE SULFATE 4 MG/1 ML DISP.SYRIN IV PRN ×4 (04:03→18:25)
[2018-08-04 04:47] VITALS: BP 116/53
[2018-08-04] MEDS: PANTOPRAZOLE SODIUM 40 MG TABLET.DR PO SCH (05:58)
--- NOTE | 2018-08-04 06:52 | NUR ---
Patient slept well through the night. Pt requesting pain medication throughout the night and was compliant with care. At 6am patient became agitated because he was awoken to take his medication and have blood drawn. States he wants to take a shower in the morning. Will endorse to AM nurse.
[2018-08-04 07:00] LABS: BASOPHILS % (AUTO) 0.2 % (0.0-2.0); EOSINOPHILS # (AUTO) 0.4 K/uL (0.0-0.7); HEMATOCRIT 35.8 % (36.7-47.1); HEMOGLOBIN 12.1 g/dL (12.5-16.3); LYMPHOCYTES # (AUTO) 0.9 K/uL (20.0-40.0); LYMPHOCYTES % (AUTO) 8.9 % (20.5-51.5); MEAN CORPUSCULAR HGB CONC 34 g/dL (32.5-36.3); MEAN CORPUSCULAR VOLUME 86.2 fL (73.0-96.2); MONOCYTES # (AUTO) 0.6 K/uL (2.0-10.0); MONOCYTES % (AUTO) 6.3 % (0.0-11.0); NEUTROPHILS # (AUTO) 8.2 K/uL (1.8-8.9); NEUTROPHILS % (AUTO) 80.6 % (38.5-71.5); PLATELET COUNT (AUTO) 398 K/uL (152-348); RED BLOOD CELL COUNT(AUTO) 4.16 MIL/uL (4.06-5.63); WHITE BLOOD COUNT (AUTO) 10.2 K/uL (3.6-10.2)
[2018-08-04 07:05] LABS: CREATININE 0.8 mg/dL (0.6-1.3); POTASSIUM 4.2 mmol/L (3.5-5.1)
[2018-08-04] MEDS: LACTOBACILLUS RHAMNOSUS GG 1 EACH CAPSULE PO SCH (09:56)
[2018-08-04] MEDS: METHADONE HCL 10 MG TABLET PO SCH (09:56)
[2018-08-04] MEDS: MULTIVITAMINS,THERAPEUTIC TABLET PO SCH (09:56)
[2018-08-04] MEDS: CLOBETASOL PROPIONATE 0.05% CREAM 15 GM TUBE TOP SCH (10:06)
[2018-08-04] MEDS: Z GUARD REMEDY PASTE 57 GM TUBE TOP SCH (10:06)
[2018-08-04] MEDS: MUPIROCIN 2% OINT 22 GM TUBE NS SCH (10:07)
[2018-08-04] MEDS: GENTAMICIN SULFATE 0.1% OINT 15 GM TUBE TOP SCH (10:08)
[2018-08-04] MEDS: ENOXAPARIN SODIUM 40 MG/0.4 ML DISP.SYRIN SQ SCH (10:11)
[2018-08-04 11:22] VITALS: BP 101/71
[2018-08-04 15:25] VITALS: BP 123/75
--- NOTE | 2018-08-04 19:38 | NUR ---
Pt discharge order received. Pt VSSS. ID band, and tripple lumen at groin removed. Report called in to Trupti KAMINSKI at [facility]. Wound photos of LE taken, Pt refused all other photos. Belongings accounted for. Documents signed, copies placed in chart, and originals given to Pt. Pt safely transferred to [facility] with MACHINE HEEL SPRAYER. All discharge concerns addressed. Will remove for system shortly.
== END 2018-08-04 19:30 | DRG 871 ==
LOC: ER 23:37 → MED 07-30 02:52
PROVIDERS: ADMIT Registered Nurse; ATTEND Registered Nurse
PROC: 06HM33Z Insertion of Infusion Device into Right Femoral Vein, Percutaneous Approach (ICD-10-PCS; 2018-07-30)
PROC: B54BZZA Ultrasonography of Right Lower Extremity Veins, Guidance (ICD-10-PCS; 2018-07-30)
PROC: 02HV33Z Insertion of Infusion Device into Superior Vena Cava, Percutaneous Approach (ICD-10-PCS; principal; 2018-08-04)
PROC: B548ZZA Ultrasonography of Superior Vena Cava, Guidance (ICD-10-PCS; 2018-08-04)
DX: A41.9 Sepsis, unspecified organism (principal); G93.40 Encephalopathy, unspecified; L03.116 Cellulitis of left lower limb; E87.1 Hypo-osmolality and hyponatremia; E44.0 Moderate protein-calorie malnutrition; F11.20 Opioid dependence, uncomplicated; L02.416 Cutaneous abscess of left lower limb; F31.9 Bipolar disorder, unspecified; E11.9 Type 2 diabetes mellitus without complications; Z59.0 Homelessness; E66.01 Morbid (severe) obesity due to excess calories; Z68.34 Body mass index [BMI] 34.0-34.9, adult; E83.39 Other disorders of phosphorus metabolism; E87.6 Hypokalemia; F17.210 Nicotine dependence, cigarettes, uncomplicated; G89.4 Chronic pain syndrome; J45.909 Unspecified asthma, uncomplicated; Z87.442 Personal history of urinary calculi; L30.9 Dermatitis, unspecified; I87.2 Venous insufficiency (chronic) (peripheral); Z22.322 Carrier or suspected carrier of Methicillin resistant Staphylococcus aureus; F19.11 Other psychoactive substance abuse, in remission; D64.9 Anemia, unspecified; Z91.14 Patient's other noncompliance with medication regimen; B95.62 Methicillin resistant Staphylococcus aureus infection as the cause of diseases classified elsewhere; F29 Unspecified psychosis not due to a substance or known physiological condition
CPT/HCPCS: 36415; 36556; 71045; 73590; 83605; 83735; 84100; 84443; 85025; 87040; 87070; 87077; 87086; 93005; A4663; C1751; J0690; J1650; J2270; J2543; J3370; J7030; J7060

== ENCOUNTER 2019-03-03 04:55 | Emergency (ER) | payer MEDICARE, OTHER ==
[~2019-03-03] VITALS: Ht 175.3 cm; Wt 99.8 kg
--- NOTE | 2019-03-03 05:10 | NUR ---
Pt. ambulated into ED w/ c/o posterior neck pain x 3 days, pt. states he has arthiritis in the joint, A/Ox4, denies, SOB/SUAREZ/F/C/N/V/C, RR even and unlabored, speaks in clear and complete sentences,
--- NOTE | 2019-03-03 05:21 | NUR ---
at bedside for MSE
[2019-03-03] MEDS ORDERED: KETOROLAC TROMETHAMINE 30 MG INJ IM ONE (05:30)
[2019-03-03] MEDS ORDERED: KETOROLAC TROMETHAMINE 30 MG INJ ONE (05:36)
--- NOTE | 2019-03-03 05:48 | NUR ---
Patient discharged to home in stable conditon. Written and verbal after care instructions given. Patient verbalizes understanding of instructions. Pt. d/c w/ prescription per MD order, d/c papers signed, all belongings w/ pt., ID band removed, ambulated off unit w/ steady gait, NAD
== END 2019-03-03 05:50 | disposition home or self-care (01) ==
LOC: ER 04:57
DX: G89.29 Other chronic pain (principal); M54.2 Cervicalgia; J45.909 Unspecified asthma, uncomplicated; F11.10 Opioid abuse, uncomplicated; F17.200 Nicotine dependence, unspecified, uncomplicated; F15.10 Other stimulant abuse, uncomplicated; Z59.0 Homelessness; Z79.899 Other long term (current) drug therapy
CPT/HCPCS: 96372; 99283; J1885; A4663

== ENCOUNTER 2019-03-12 20:15 | Emergency (ER) | payer MEDICARE ==
[~2019-03-12] VITALS: Ht 175.3 cm; Wt 99.8 kg
--- NOTE | 2019-03-12 20:30 | NUR ---
Pt ambulated in Er for the c/o nausea, chills, ringing in ears and SOB x 30 mins. VSS. Safe environment implemented.
[2019-03-12] MEDS ORDERED: ONDANSETRON ODT 4 MG TAB.RAPDIS ONE (20:39)
[2019-03-12] MEDS ORDERED: MAG HYDROX/AL HYDROX/SIMETH 30 ML LIQUID UDC ONE (20:40)
[2019-03-12] MEDS ORDERED: DICYCLOMINE HCL LIQ 10 MG/5 ML UDC ONE (20:40)
[2019-03-12] MEDS ORDERED: ONDANSETRON ODT 4 MG TAB.RAPDIS SL ONE (20:45)
[2019-03-12] MEDS ORDERED: DICYCLOMINE HCL LIQ 10 MG/5 ML UDC PO ONE (20:45)
[2019-03-12] MEDS ORDERED: MAG HYDROX/AL HYDROX/SIMETH 30 ML LIQUID UDC PO ONE (20:45)
[2019-03-12] MEDS ORDERED: HYDROMORPHONE 1 MG/1 ML DISP.SYRIN IV ONE ×2 (21:15→23:30)
[2019-03-12] MEDS ORDERED: IV NORMAL SALINE 1000 ML BAG IV ONE (21:15)
[2019-03-12] MEDS ORDERED: ONDANSETRON 4 MG/2 ML VIAL IV ONE (21:15)
[2019-03-12 21:21] LABS: BASOPHILS # (AUTO) 0.1 K/uL (0.0-8.0); BASOPHILS % (AUTO) 0.3 % (0.0-2.0); EOSINOPHILS # (AUTO) 0.1 K/uL (0.0-0.7); EOSINOPHILS % (AUTO) 0.8 % (0.0-7.0); HEMOGLOBIN 15.4 g/dL (12.5-16.3); LYMPHOCYTES # (AUTO) 0.8 K/uL (20.0-40.0); LYMPHOCYTES % (AUTO) 4.5 % (20.5-51.5); MEAN CORPUSCULAR HEMOGLOBIN 28.2 uug (23.8-33.4); MEAN CORPUSCULAR HGB CONC 33 g/dL (32.5-36.3); MEAN CORPUSCULAR VOLUME 85.8 fL (73.0-96.2); MONOCYTES # (AUTO) 0.9 K/uL (2.0-10.0); MONOCYTES % (AUTO) 5.1 % (0.0-11.0); NEUTROPHILS # (AUTO) 15.1 K/uL (1.8-8.9); NEUTROPHILS % (AUTO) 89.3 % (38.5-71.5); PLATELET COUNT (AUTO) 214 K/uL (152-348); RED BLOOD CELL COUNT(AUTO) 5.48 MIL/uL (4.06-5.63); WHITE BLOOD COUNT (AUTO) 16.9 K/uL (3.6-10.2)
[2019-03-12] MEDS ORDERED: HYDROMORPHONE 2 MG/1 ML DISP.SYRIN ONE (21:27)
[2019-03-12] MEDS ORDERED: ONDANSETRON 4 MG/2 ML VIAL ONE ×2 (21:28→23:22)
[2019-03-12 21:30] LABS: POTASSIUM 4.6 mmol/L (3.5-5.1)
[2019-03-12 21:36] LABS: BILIRUBIN,DIRECT 0.1 mg/dL (0.0-0.2); BILIRUBIN,TOTAL 0.3 mg/dL (0.2-1.0); TOTAL PROTEIN, SERUM 7.7 g/dL (6.4-8.2)
[2019-03-12] MEDS ORDERED: HYDROMORPHONE 1 MG/1 ML DISP.SYRIN ONE (23:22)
[2019-03-12] MEDS ORDERED: ONDANSETRON IV *ER 4 MG/2 ML VIAL IV ONE (23:30)
--- NOTE | 2019-03-12 23:31 | NUR ---
IV removed. Catheter intact and site benign. Pressure and 4x4 gauze applied to site. No bleeding noted. Patient discharged to home in stable conditon. Written and verbal after care instructions given. Patient verbalizes understanding of instructions. Patient states he will walk home.
[2019-03-12 23:32] VITALS: BP 115/68
== END 2019-03-12 23:30 | disposition home or self-care (01) ==
LOC: ER 20:16
DX: G89.4 Chronic pain syndrome (principal); R10.33 Periumbilical pain; R11.0 Nausea; J45.909 Unspecified asthma, uncomplicated; F17.200 Nicotine dependence, unspecified, uncomplicated; F11.10 Opioid abuse, uncomplicated; Z59.0 Homelessness
CPT/HCPCS: 36415; 71045; 74176; 80048; 80076; 83690; 84484; 85025; 85730; 93005; 96374; 96375; 96376; 99284; J1170 ×2; J2405 ×2; 70030-TC; A4663; J7030; Q0162

== ENCOUNTER 2019-03-15 05:51 | Emergency (ER) | payer MEDICARE ==
[~2019-03-15] VITALS: Ht 175.3 cm; Wt 99.8 kg
--- NOTE | 2019-03-15 06:00 | NUR ---
Patient ambulated with stable gait. A/Ox4. Speech clear, speaks in complete sentences. No neuro deficits. Patient came in for c/o abdominal pain since 229. Pain 06/23. Patient was seen here few days ago for same issue.
[2019-03-15 06:20] LABS: BASOPHILS % (AUTO) 0.2 % (0.0-2.0); EOSINOPHILS # (AUTO) 0.3 K/uL (0.0-0.7); EOSINOPHILS % (AUTO) 4.1 % (0.0-7.0); HEMATOCRIT 40.7 % (36.7-47.1); HEMOGLOBIN 13.5 g/dL (12.5-16.3); LYMPHOCYTES # (AUTO) 1.3 K/uL (20.0-40.0); LYMPHOCYTES % (AUTO) 19.1 % (20.5-51.5); MEAN CORPUSCULAR HEMOGLOBIN 28.6 uug (23.8-33.4); MEAN CORPUSCULAR HGB CONC 33 g/dL (32.5-36.3); MONOCYTES # (AUTO) 0.5 K/uL (2.0-10.0); MONOCYTES % (AUTO) 7.2 % (0.0-11.0); NEUTROPHILS # (AUTO) 4.6 K/uL (1.8-8.9); NEUTROPHILS % (AUTO) 69.4 % (38.5-71.5); PLATELET COUNT (AUTO) 176 K/uL (152-348); RED BLOOD CELL COUNT(AUTO) 4.73 MIL/uL (4.06-5.63); WHITE BLOOD COUNT (AUTO) 6.7 K/uL (3.6-10.2)
[2019-03-15 06:23] LABS: CREATININE 0.8 mg/dL (0.6-1.3)
[2019-03-15 06:29] LABS: BILIRUBIN,TOTAL 0.1 mg/dL (0.2-1.0); TOTAL PROTEIN, SERUM 6.3 g/dL (6.4-8.2)
[2019-03-15] MEDS ORDERED: HYDROMORPHONE 2 MG/1 ML DISP.SYRIN ONE (06:40)
[2019-03-15] MEDS ORDERED: ONDANSETRON 4 MG/2 ML VIAL ONE (06:40)
--- NOTE | 2019-03-15 06:43 | NUR ---
Patient discharged to home in stable conditon. Written and verbal after care instructions given. Patient verbalizes understanding of instructions. Instructed patient to not drive. Patient ambulated with stable gait.
[2019-03-15] MEDS ORDERED: ONDANSETRON 4 MG/2 ML VIAL IM ONE (06:45)
[2019-03-15] MEDS ORDERED: HYDROMORPHONE 1 MG/1 ML DISP.SYRIN IM ONE (06:45)
== END 2019-03-15 06:46 | disposition home or self-care (01) ==
LOC: ER 05:54
DX: K29.70 Gastritis, unspecified, without bleeding (principal); J45.909 Unspecified asthma, uncomplicated; F17.200 Nicotine dependence, unspecified, uncomplicated; F11.10 Opioid abuse, uncomplicated
CPT/HCPCS: 36415; 80053; 83690; 85025; 96372 ×2; 99283; J1170; J2405; A4663

== ENCOUNTER 2019-07-01 05:41 | Emergency (ER) | payer MEDICARE ==
[~2019-07-01] VITALS: Ht 175.3 cm; Wt 108.9 kg
--- NOTE | 2019-07-01 05:48 | NUR ---
came to ER walking ,steady of gait . no respiratory distress noted,patient came for redness /rash to his bilateral lower leg for 4 to 5 days now,as per patient he is not homeless .
--- NOTE | 2019-07-01 05:55 | NUR ---
SEEN AND EXAMINED BY RIAZ RICHARD AT BEDSIDE .
[2019-07-01] MEDS ORDERED: HYDROMORPHONE 1 MG/1 ML DISP.SYRIN IM ONE (06:00)
[2019-07-01] MEDS ORDERED: ONDANSETRON 4 MG/2 ML VIAL IM ONE (06:00)
[2019-07-01] MEDS ORDERED: SULFAMETH/TRIMETH 800/160 MG TABLET PO ONE (06:00)
[2019-07-01] MEDS ORDERED: SULFAMETH/TRIMETH 800/160 MG TABLET ONE (06:07)
[2019-07-01] MEDS ORDERED: ONDANSETRON 4 MG/2 ML VIAL ONE (06:07)
[2019-07-01] MEDS ORDERED: HYDROMORPHONE 1 MG/1 ML DISP.SYRIN ONE (06:07)
--- NOTE | 2019-07-01 06:40 | NUR ---
Patient discharged to home in stable conditon. Written and verbal after care instructions given. Patient verbalizes understanding of instructions.WENT HOME WITH BELONGINGS.V/S WNL .
[2019-07-01 07:22] VITALS: BP 139/90
== END 2019-07-01 07:23 | disposition home or self-care (01) ==
LOC: ER 05:46
DX: B95.8 Unspecified staphylococcus as the cause of diseases classified elsewhere (principal); F31.9 Bipolar disorder, unspecified; F20.9 Schizophrenia, unspecified; F11.10 Opioid abuse, uncomplicated
CPT/HCPCS: 96372 ×2; 99283; J1170; J2405; A4663

== ENCOUNTER 2019-07-07 08:43 | Emergency (ER) | payer MEDICARE ==
[~2019-07-07] VITALS: Ht 175.3 cm; Wt 102.1 kg
--- NOTE | 2019-07-07 08:56 | NUR ---
Dr. Evans at the bedside for MSE.
[2019-07-07] MEDS ORDERED: KETOROLAC TROMETHAMINE 30 MG INJ IM ONE (09:00)
[2019-07-07] MEDS ORDERED: KETOROLAC TROMETHAMINE 30 MG INJ ONE (09:08)
--- NOTE | 2019-07-07 09:20 | NUR ---
Patient discharged to home in stable conditon. Written and verbal after care instructions given. Patient verbalizes understanding of instructions.
== END 2019-07-07 09:20 | disposition home or self-care (01) ==
LOC: ER 08:43
DX: T14.8XXA Other injury of unspecified body region, initial encounter (principal); M54.2 Cervicalgia; F31.9 Bipolar disorder, unspecified; F20.9 Schizophrenia, unspecified; F11.10 Opioid abuse, uncomplicated; X58.XXXA Exposure to other specified factors, initial encounter; Y93.89 Activity, other specified; Y92.89 Other specified places as the place of occurrence of the external cause; Y99.8 Other external cause status
CPT/HCPCS: 96372; 99283; J1885; A4663

== ENCOUNTER 2019-07-10 03:18 | Emergency (ER) | payer MEDICARE ==
[~2019-07-10] VITALS: Ht 175.3 cm; Wt 104.3 kg
--- NOTE | 2019-07-10 03:40 | NUR ---
Came in to the ER ambulatory c/o headache/migraines x 3 days. To room 2A. Patient AAO. NAD noted.
--- NOTE | 2019-07-10 04:00 | NUR ---
Seen and evaluated by Dr. Nelson.
[2019-07-10] MEDS ORDERED: ACETAMINOPHEN ES 500 MG TABLET ONE (04:12)
[2019-07-10] MEDS ORDERED: ACETAMINOPHEN ES 500 MG TABLET PO ONE (04:15)
--- NOTE | 2019-07-10 04:25 | NUR ---
Back from CT scan. Remains alert and oriented.
--- NOTE | 2019-07-10 06:05 | NUR ---
Patient got agitated when informed that results of CT and throat swab were negative. Wanting to see another MD and wanting pain medications for headaches. Advised appropriately.
--- NOTE | 2019-07-10 06:10 | NUR ---
Patient stormed out of ER very upset taking after care instructions and prescription for Motrin without signing exit care information.
[2019-07-10 06:27] VITALS: BP 140/80
== END 2019-07-10 06:10 | disposition home or self-care (01) ==
LOC: ER 03:26
DX: S60.922A Unspecified superficial injury of left hand, initial encounter (principal); S60.921A Unspecified superficial injury of right hand, initial encounter; S80.922A Unspecified superficial injury of left lower leg, initial encounter; S80.921A Unspecified superficial injury of right lower leg, initial encounter; K08.89 Other specified disorders of teeth and supporting structures; R51 Headache; J02.8 Acute pharyngitis due to other specified organisms; B97.89 Other viral agents as the cause of diseases classified elsewhere; F11.10 Opioid abuse, uncomplicated; F31.9 Bipolar disorder, unspecified; X58.XXXA Exposure to other specified factors, initial encounter; Y93.89 Activity, other specified; Y92.89 Other specified places as the place of occurrence of the external cause; Y99.8 Other external cause status
CPT/HCPCS: 36415; 70450; 86403; 87070; A4663; A9150; C1758

== ENCOUNTER 2019-07-12 06:08 | Emergency (ER) | payer MEDICARE ==
[~2019-07-12] VITALS: Ht 175.3 cm; Wt 104.3 kg
--- NOTE | 2019-07-12 06:18 | NUR ---
PT RECEIVD C/O HEADACHE FROM HOME. PT ABLE TO SPEAK CLEAR AND COMPLETE SENTENCES. DENIES HITTING HEAD, DENIES LOC, NO CARDIOPULMONARY DISTRESS, PT NAD, DENIES FEVERS [place] CHILLS, DENIES NVD. REASSURED, [id number] UP KEPT SAFE, BED AT LOWEST POSITION
[2019-07-12] MEDS ORDERED: OXYCODONE/APAP 5-325 MG TABLET PO ONE (07:00)
[2019-07-12] MEDS ORDERED: CLINDAMYCIN HCL 150 MG CAPSULE PO ONE (07:00)
[2019-07-12] MEDS ORDERED: IBUPROFEN 800 MG TABLET PO ONE (07:00)
[2019-07-12] MEDS ORDERED: OXYCODONE/APAP 5-325 MG TABLET ONE (07:01)
[2019-07-12] MEDS ORDERED: IBUPROFEN 800 MG TABLET ONE (07:01)
[2019-07-12] MEDS ORDERED: CLINDAMYCIN HCL 150 MG CAPSULE ONE (07:01)
--- NOTE | 2019-07-12 07:05 | NUR ---
MD AT BEDSIDE FOR HX AND PHYSICAL. ABLE TO TOLERATE MEDS PRESCRIBED. NAD
--- NOTE | 2019-07-12 07:08 | NUR ---
HAND OFF AND SBAR GIVEN TO DAY SHIFT RN.
--- NOTE | 2019-07-12 07:46 | NUR ---
Patient discharged to home in stable conditon. Written and verbal after care instructions given. Patient verbalizes understanding of instructions.PT WALKS IN STEADY GAIT. HOSPITAL SANDWICH PROVIDED FOR PT.
== END 2019-07-12 07:51 | disposition home or self-care (01) ==
LOC: ER 06:10
DX: R51 Headache (principal); F31.9 Bipolar disorder, unspecified; F11.10 Opioid abuse, uncomplicated; F15.10 Other stimulant abuse, uncomplicated
CPT/HCPCS: A4663

== ENCOUNTER 2019-08-19 21:44 | Emergency (ER) | payer MEDICARE, OTHER ==
[~2019-08-19] VITALS: Ht 175.3 cm; Wt 103.0 kg
--- NOTE | 2019-08-19 21:55 | NUR ---
Dr. Nelson at bedside for MSE.
[2019-08-19] MEDS ORDERED: MINERAL OIL FLEET ENEMA 133 ML BOTTLE RC ONE ×2 (22:00→22:08)
[2019-08-19] MEDS ORDERED: FLEET ENEMA 133 ML BOTTLE RC ONE (22:05)
--- NOTE | 2019-08-19 22:20 | NUR ---
Pt in bathroom having a bowel movement.
--- NOTE | 2019-08-19 22:38 | NUR ---
Pt states unable to produce a bowel movement.
--- NOTE | 2019-08-19 23:02 | NUR ---
Pt out of ER for Xray.
--- NOTE | 2019-08-19 23:23 | NUR ---
Pt back to ER from Xray
[2019-08-20] MEDS ORDERED: MAGNESIUM CITRATE 296 ML BOTTLE PO ONE
[2019-08-20] MEDS ORDERED: MAGNESIUM CITRATE 296 ML BOTTLE ONE (00:03)
[2019-08-20] MEDS ORDERED: BISACODYL 10 MG SUPP.RECT RC ONE ×2 (00:03)
--- NOTE | 2019-08-20 01:30 | NUR ---
Patient discharged to home in stable conditon. Written and verbal after care instructions given. Patient verbalizes understanding of instructions. Pt ambulated out of ER with steady gait, no acute signs of distress, VSS, all belongings taken. Pt in waiting room awaiting taxi.
[2019-08-20 01:31] VITALS: BP 150/80
== END 2019-08-20 01:32 | disposition home or self-care (01) ==
LOC: ER 21:44
DX: K59.00 Constipation, unspecified (principal); F31.9 Bipolar disorder, unspecified; F20.9 Schizophrenia, unspecified; F11.10 Opioid abuse, uncomplicated
CPT/HCPCS: 74021; A4663